=== PATIENT | male | born 1970 | race Caucasian/White ===

== ENCOUNTER → 2017-07-01 | Outpatient (CLI) | payer BC ==
--- NOTE | 2017-07-02 10:45 | ECHOF ---
Referral Reason:I51.7 Cardiomegaly MEASUREMENTS -------- HEIGHT: 175.3 cm WEIGHT: 93.0 kg BP: 139/86 RVIDd: 2.7 cm (< 3.3) IVSd: 1.0 cm (0.6 - 1.1) LVIDd: 4.3 cm (3.9 - 5.3) LVPWd: 1.0 cm (0.6 - 1.1) IVSs: 1.5 cm LVIDs: 2.7 cm LVPWs: 1.3 cm LA Diam: 2.8 cm (2.7 - 3.8) LAESV Index (A-L): 16.57 ml/m Ao Diam: 2.6 cm (2.0 - 3.7) AV Cusp: 2.0 cm (1.5 - 2.6) EPSS: 0.3 cm MV E Bereket: 0.74 m/s MV DecT: 309 ms MV A Bereket: 0.80 m/s MV E/A Ratio: 0.92 MV EF SLOPE: 92.32 mm/s (70 - 150) MV EXCURSION: 1.48 cm (> 18.000) FINDINGS -------- Sinus rhythm. This was a technically good study. The left ventricular size is normal. Left ventricular wall thickness is normal. Overall left vent ricular systolic function is normal with, an EF between 55 - 60 %. The right ventricle is normal in size. Normal LA size by volume 22+/-6 ml/m2. The right atrium is normal in size. The aortic valve is trileaflet and appears structurally normal. There is trace mitral regurgitation. Trace tricuspid regurgitation present. Trace/mild (physiologic) pulmonic regurgitation. The aortic root size is normal. Normal inferior vena cava with normal inspiratory collapse consistent with estimated right atrial pre ssure of 5 mmHg. There is no pericardial effusion. CONCLUSIONS -------- 1. Sinus rhythm. 2. This was a technically good study. 3. The left ventricular size is normal. 4. Left ventricular wall thickness is normal. 5. Overall left ventricular systolic function is normal with, an EF between 55 - 60 %. 6. The right ventricle is normal in size. 7. Normal LA size by volume 22+/-6 ml/m2. 8. The right atrium is normal in size. 9. The aortic valve is trileaflet and appears structurally normal. 10. There is trace mitral regurgitation. 11. Trace tricuspid regurgitation present. 12. Trace/mild (physiologic) pulmonic regurgitation. 13. The aortic root size is normal. 14. Normal inferior vena cava with normal inspiratory collapse consistent with estimated right atrial pressure of 5 mmHg. 15. There is no pericardial effusion. [employer] POLISHER: MIKE Alarcon
== END | disposition home or self-care (01) ==
LOC: RADECHMAIN 13:47
PROVIDERS: ATTEND Internal Medicine
DX: I51.7 Cardiomegaly (principal)
CPT/HCPCS: 93306

== ENCOUNTER → 2017-09-13 | Outpatient (CLI) | payer BC ==
--- NOTE | 2017-09-13 14:38 | EST ---
EXERCISE STRESS AGE: 47 SEX: M HT: 5'9" WT: 194 PROTOCOL: Jadon Stress Test STAGE: III DURATION OF EXERCISE: 9:00 HEART RATE REST: 96 BLOOD PRESSURE REST: 140/94 MAXIMUM HEART RATE ACHIEVED: 168 MAXIMUM BLOOD PRESSURE: 193/68 85% MPHR: 147 100% MPHR: 173 METS: 10.5 INDICATIONS: Chest pain. CLINICAL INFORMATION: Baseline rhythm is sinus mechanism. Rate is 96, normal axis and interval. Baseline blood pressure 140/94 mmHg. Patient exercised on Jadon protocol of 9 minutes reaching a peak heart rate of 168 beasts per minute which is equal to 97% of maximum predicted heart failure. Peak blood pressure 193/68 mmHg. Test was terminated due to fatigue. There is no chest pain. Electrocardiographic monitored revealed no evidence of diagnostic ischemic ST deviation. CONCLUSION: 1. Average exercise tolerance with normal electrocardiographic response to exercise. 2. No episode of chest discomfort. MMODL / IJN: [id number] /
== END | disposition home or self-care (01) ==
LOC: RADNMMAIN 10:34
PROVIDERS: ATTEND Internal Medicine
DX: R07.89 Other chest pain (principal)
CPT/HCPCS: 93017

== ENCOUNTER 2017-10-18 14:29 | Emergency (ER) | payer BC ==
[2017-10-18 15:54] LABS: Basophils % (A) 1 %; Eosinophils # (A) 0.1 k/uL (0-0.7); Eosinophils % (A) 1 %; HCT 42.1 % (39.0-53.0); HGB 14.4 gm/dL (13.0-17.5); Lymphocytes # (A) 0.6 k/uL (1.0-4.8); Lymphocytes % (A) 12 %; MCH 29.4 pg (25.0-35.0); MCHC 34.3 g/dL (31.0-37.0); MCV 85.7 fL (80.0-100.0); Mean Platelet Volume 6.4; Monocytes # (A) 0.2 k/uL (0-1.0); Monocytes % (A) 4 %; Neutrophils # (A) 4.5 k/uL (1.3-7.7); Neutrophils % (A) 82 %; Platelet Count 283 k/uL (150-450); RBC 4.91 m/uL (4.30-5.90); RDW 13.4 % (11.5-15.5); WBC 5.5 k/uL (3.8-10.6)
[2017-10-18 16:02] LABS: ALT 29 U/L (21-72); AST 18 U/L (17-59); Albumin 4.6 g/dL (3.5-5.0); Alkaline Phosphatase 68 U/L (38-126); Amylase 56 U/L (30-110); Anion Gap 13 mmol/L; Blood Urea Nitrogen 11 mg/dL (9-20); Calcium 9.7 mg/dL (8.4-10.2); Carbon Dioxide 25 mmol/L (22-30); Chloride 104 mmol/L (98-107); Glucose 95 mg/dL (74-99); Lipase 165 U/L (23-300); Magnesium 2.1 mg/dL (1.6-2.3); Potassium 4.1 mmol/L (3.5-5.1); Sodium 142 mmol/L (137-145); Total Protein 7.6 g/dL (6.3-8.2)
[2017-10-18 16:04] LABS: INR 1.1 (<1.2); Prothrombin Time 10.3 sec (9.0-12.0)
[2017-10-18 16:07] LABS: Creatine Kinase 81 U/L (55-170)
--- NOTE | 2017-10-18 16:12 | XR ---
EXAMINATION TYPE: XR chest 2V DATE OF EXAM: 10/18/2017 COMPARISON: Prior chest 03/04/2015 HISTORY: Chest pain TECHNIQUE: Frontal and lateral views of the chest are obtained. FINDINGS: There is no focal air space opacity, pleural effusion, or pneumothorax seen. The cardiac silhouette size is within normal limits. The osseous structures are intact. IMPRESSION: No acute cardiopulmonary process.
[2017-10-18 16:21] LABS: Creatine Kinase MB 0.3 ng/mL (0.0-2.4); Troponin I <0.012 ng/mL (0.000-0.034)
[2017-10-18] MEDS ORDERED: KETOROLAC 60 MG/2 ML VIAL IM STA (20:24)
[2017-10-18 20:31] VITALS: RESP 16
--- NOTE | 2017-10-18 20:31 | ED ---
General Adult HPI - General Chief complaint: Recheck/Abnormal Lab/Rx Stated complaint: BP 168/108 Time Seen by Provider: 10/18/17 15:25 Source: patient, RN notes reviewed Mode of arrival: ambulatory Limitations: no limitations - History of Present Illness Initial comments: This a 47-year-old male who presents to the emergency Department with multiple complaints. Patient was recently diagnosed by blood pressure and his physician gave him a blood pressure medication started taking today. Patient states he has been having some episodes of headaches and some bilateral neck pain that seems to be muscular in nature. Patient states also he is been having some blurred vision. Patient states he has had a recent workup for his heart and it was all negative. Patient states that included a stress test and an echo. Patient states currently he has no chest pain or difficulty breathing patient states he did have some chest pain a few days ago but it was the same pain he had when he was worked up for it before. Patient denies any smoking. Patient states she's recently had a job much more stressful than the previous chart. Patient states he also has been complaining of epigastric and right upper quadrant tenderness. Patient denies any calf pain or leg swelling. - Related Data Home Medications Medication Instructions Recorded Confirmed Simvastatin [Zocor] 20 mg PO DAILY 03/03/15 10/18/17 Aspirin [Adult Low Dose Aspirin EC] 81 mg PO DAILY 10/18/17 10/18/17 Cholecalciferol [Vitamin D3] 1,000 unit PO DAILY 10/18/17 10/18/17 Escitalopram [Lexapro] 10 mg PO DAILY 10/18/17 10/18/17 Famotidine [Pepcid] 20 mg PO DAILY 10/18/17 10/18/17 Fish Oil/Dha/Epa [Fish Oil 1,200 1 cap PO DAILY 10/18/17 10/18/17 mg Fish Oil] Lisinopril [Prinivil] 10 mg PO DAILY 10/18/17 10/18/17 Allergies Allergy/AdvReac Type Severity Reaction Status Date / Time No Known Allergies Allergy Verified 10/18/17 19:29 Review of Systems ROS Statement: Those systems with pertinent positive or pertinent negative responses have been documented in the HPI. ROS Other: All systems not noted in ROS Statement are negative. Past Medical History Past Medical History: Hyperlipidemia, Hypertension Additional Past Medical History / Comment(s): 03/04/[address] [facility] ER with chest pain. He was seen in ER yesterday for chest pain-he was tx with nitro x 3 and left AMA. He had reoccurrence of chest pain which radiatedd up to L neck and down L arm. He also had some pain with movement but states pain is more of a constant type pain. He states he fell yesterday and landed on his L shoulder. History of Any Multi-Drug Resistant Organisms: None Reported Past Surgical History: No Surgical Hx Reported Additional Past Surgical History / Comment(s): colonoscopy, wisdom teeth extraction. Past Anesthesia/Blood Transfusion Reactions: Postoperative Nausea & Vomiting ( PONV) Past Psychological History: No Psychological Hx Reported Smoking Status: Never smoker Past Alcohol Use History: Occasional Past Drug Use History: None Reported - Past Family History Father Family Medical History: Coronary Artery Disease (CAD) Additional Family Medical History / Comment(s): Father recently. He was 65 yrs old. Mother Family Medical History: No Reported History Additional Family Medical History / Comment(s): Mother is healthy and 65 yrs old. General Exam - General Exam Comments Initial Comments: GENERAL: Patient is well-developed and well-nourished. Patient is nontoxic and well- hydrated and is in mild distress. ENT: Neck is soft and supple. No significant lymphadenopathy is noted. Oropharynx is clear. Moist mucous membranes. Neck has full range of motion without eliciting any pain. Palpating the neck at the base of the skull bilaterally is tender. EYES: The sclera were anicteric and conjunctiva were pink and moist. Extraocular movements were intact and pupils were equal round and reactive to light. Eyelids were unremarkable. PULMONARY: Unlabored respirations. Good breath sounds bilaterally. No audible rales rhonchi or wheezing was noted. CARDIOVASCULAR: There is a regular rate and rhythm without any murmurs gallops or rubs. ABDOMEN: Minimal right upper quadrant tenderness SKIN: Skin is clear with no lesions or rashes and otherwise unremarkable. NEUROLOGIC: Patient is alert and oriented x3. Cranial nerves II through XII are grossly intact. Motor and sensory are also intact. Normal speech, volume and content. Symmetrical smile. MUSCULOSKELETAL: Normal extremities with adequate strength and full range of motion. No lower extremity swelling or edema. No calf tenderness. LYMPHATICS: No significant lymphadenopathy is noted PSYCHIATRIC: Normal psychiatric evaluation. Limitations: no limitations Course Vital Signs 10/18/17 10/18/17 10/18/17 15:23 20:29 20:55 Temperature 98.6 F 97.9 F Pulse Rate 85 79 68 Respiratory 18 16 16 Rate Blood Pressure 151/98 169/109 169/95 O2 Sat by Pulse 100 99 99 Oximetry 10/18/17 21:38 Temperature 97.8 F Pulse Rate 68 Respiratory 16 Rate Blood Pressure 135/86 O2 Sat by Pulse 99 Oximetry Medical Decision Making - Medical Decision Making EKG shows normal sinus rhythm at 81 bpm CA interval is 132 QRS is 80 QT interval 376 QTC is 436. Patient's EKG shows no ST segment elevation or depression or T wave abnormalities are noted. - Lab Data Result diagrams: 10/18/17 15:45 10/18/17 15:45 Lab Results 10/18/17 10/18/17 10/18/17 Range/Units 15:45 15:45 15:45 WBC 5.5 (3.8-10.6) k/uL RBC 4.91 (4.30-5.90) m/uL Hgb 14.4 (13.0-17.5) gm/dL Hct 42.1 (39.0-53.0) % MCV 85.7 (80.0-100.0) fL MCH 29.4 (25.0-35.0) pg MCHC 34.3 (31.0-37.0) g/dL RDW 13.4 (11.5-15.5) % Plt Count 283 (150-450) k/uL Neutrophils % 82 % Lymphocytes % 12 % Monocytes % 4 % Eosinophils % 1 % Basophils % 1 % Neutrophils # 4.5 (1.3-7.7) k/uL Lymphocytes # 0.6 L (1.0-4.8) k/uL Monocytes # 0.2 (0-1.0) k/uL Eosinophils # 0.1 (0-0.7) k/uL Basophils # 0.0 (0-0.2) k/uL PT (9.0-12.0) sec INR (<1.2) APTT (22.0-30.0) sec Sodium 142 (137-145) mmol/L Potassium 4.1 (3.5-5.1) mmol/L Chloride 104 (98-107) mmol/L Carbon Dioxide 25 (22-30) mmol/L Anion Gap 13 mmol/L BUN 11 (9-20) mg/dL Creatinine 0.82 (0.66-1.25) mg/dL Est GFR (CKD-EPI)AfAm >90 (>60 ml/min/1.73 sqM) Est GFR (CKD-EPI)NonAf >90 (>60 ml/min/1.73 sqM) Glucose 95 (74-99) mg/dL Calcium 9.7 (8.4-10.2) mg/dL Magnesium 2.1 (1.6-2.3) mg/dL Total Bilirubin 1.0 (0.2-1.3) mg/dL AST 18 (17-59) U/L ALT 29 (21-72) U/L Alkaline Phosphatase 68 (38-126) U/L Total Creatine Kinase 81 (55-170) U/L CK-MB (CK-2) 0.3 (0.0-2.4) ng/mL CK-MB (CK-2) Rel Index 0.4 Troponin I <0.012 (0.000-0.034) ng/mL Total Protein 7.6 (6.3-8.2) g/dL Albumin 4.6 (3.5-5.0) g/dL Amylase 56 (30-110) U/L Lipase 165 (23-300) U/L 10/18/17 Range/Units 15:45 WBC (3.8-10.6) k/uL RBC (4.30-5.90) m/uL Hgb (13.0-17.5) gm/dL Hct (39.0-53.0) % MCV (80.0-100.0) fL MCH (25.0-35.0) pg MCHC (31.0-37.0) g/dL RDW (11.5-15.5) % Plt Count (150-450) k/uL Neutrophils % % Lymphocytes % % Monocytes % % Eosinophils % % Basophils % % Neutrophils # (1.3-7.7) k/uL Lymphocytes # (1.0-4.8) k/uL Monocytes # (0-1.0) k/uL Eosinophils # (0-0.7) k/uL Basophils # (0-0.2) k/uL PT 10.3 (9.0-12.0) sec INR 1.1 (<1.2) APTT 22.0 (22.0-30.0) sec Sodium (137-145) mmol/L Potassium (3.5-5.1) mmol/L Chloride (98-107) mmol/L Carbon Dioxide (22-30) mmol/L Anion Gap mmol/L BUN (9-20) mg/dL Creatinine (0.66-1.25) mg/dL Est GFR (CKD-EPI)AfAm (>60 ml/min/1.73 sqM) Est GFR (CKD-EPI)NonAf (>60 ml/min/1.73 sqM) Glucose (74-99) mg/dL Calcium (8.4-10.2) mg/dL Magnesium (1.6-2.3) mg/dL Total Bilirubin (0.2-1.3) mg/dL AST (17-59) U/L ALT (21-72) U/L Alkaline Phosphatase (38-126) U/L Total Creatine Kinase (55-170) U/L CK-MB (CK-2) (0.0-2.4) ng/mL CK-MB (CK-2) Rel Index Troponin I (0.000-0.034) ng/mL Total Protein (6.3-8.2) g/dL Albumin (3.5-5.0) g/dL Amylase (30-110) U/L Lipase (23-300) U/L Disposition Clinical Impression: Hypertensive urgency, Epigastric abdominal pain, Cervical strain Disposition: HOME SELF-CARE Condition: Good Instructions: Hypertension (ED), Abdominal Pain (ED) Is patient prescribed a controlled substance at d/c from ED?: No Referrals: Ritesh Avendano MD [Primary Care Provider] - 1-2 days Time of Disposition: 21:54
[2017-10-18] MEDS ORDERED: cloNIDine HCL 0.2 MG TAB PO STA (20:32)
[2017-10-18 20:56] VITALS: PULSE 68
[2017-10-18 21:38] VITALS: BP 135/86
--- NOTE | 2017-10-18 21:40 | US ---
EXAMINATION TYPE: US gallbladder DATE OF EXAM: 10/18/2017 COMPARISON: NONE CLINICAL HISTORY: Pain. Exam limitations due to patient barrel chested. EXAM MEASUREMENTS: Liver Length: 13.9 cm Gallbladder Wall: 0.2 cm CBD: 0.45 cm Right Kidney: 9.7 x 4.6 x 4.1 cm Pancreas: Obscured by bowel gas Liver: appears wnl Gallbladder: wnl Evidence for sonographic Rod's sign: No CBD: wnl Right Kidney: wnl IMPRESSION: No gallstones or dilated ducts.
[2017-10-18 21:55] VITALS: TEMP 97.7
== END 2017-10-18 22:08 | disposition home or self-care (01) ==
LOC: EC 14:29
DX: S16.1XXA Strain of muscle, fascia and tendon at neck level, initial encounter (principal); I16.0 Hypertensive urgency; I10 Essential (primary) hypertension; R10.13 Epigastric pain; R10.11 Right upper quadrant pain; E78.5 Hyperlipidemia, unspecified; Z79.82 Long term (current) use of aspirin; Z79.899 Other long term (current) drug therapy; X58.XXXA Exposure to other specified factors, initial encounter
CPT/HCPCS: 99284; 96372; 36415; 80053; 82150; 82550; 82553; 83690; 83735; 84484; 85025; 85610; 85730; 71046; 76705; J1885

== ENCOUNTER 2017-10-19 00:27 | Emergency (ER) | payer BC ==
[2017-10-19 00:43] VITALS: RESP 18
--- NOTE | 2017-10-19 01:11 | ED ---
General Adult HPI - General Chief complaint: Headache Stated complaint: blurred vison, numbness, head pain Time Seen by Provider: 10/19/17 00:44 Source: patient, RN notes reviewed, old records reviewed Mode of arrival: ambulatory Limitations: no limitations - History of Present Illness Initial comments: This is a 47-year-old male the ER for evaluation. This patient presents today for evaluation regarding headache. Headache, patient also admits to anxiety. Numbness taking paresthesias. Patient is recent diagnosis of high blood pressure and general anxiety versus mild depression. Today started on both blood pressure medication and Lexapro. Patient's are Lexapro lisinopril today. Patient was in ER earlier today was similar complaint. The headache is worsening tonight and is currently for evaluation of headache and paresthesias. Patient denies nausea vomiting, denies trauma. Denies any drugs alcohol - Related Data Home Medications Medication Instructions Recorded Confirmed Simvastatin [Zocor] 20 mg PO DAILY 03/03/15 10/18/17 Aspirin [Adult Low Dose Aspirin EC] 81 mg PO DAILY 10/18/17 10/18/17 Cholecalciferol [Vitamin D3] 1,000 unit PO DAILY 10/18/17 10/18/17 Escitalopram [Lexapro] 10 mg PO DAILY 10/18/17 10/18/17 Famotidine [Pepcid] 20 mg PO DAILY 10/18/17 10/18/17 Fish Oil/Dha/Epa [Fish Oil 1,200 1 cap PO DAILY 10/18/17 10/18/17 mg Fish Oil] Lisinopril [Prinivil] 10 mg PO DAILY 10/18/17 10/18/17 Allergies Allergy/AdvReac Type Severity Reaction Status Date / Time No Known Allergies Allergy Verified 10/19/17 00:43 Review of Systems ROS Statement: Those systems with pertinent positive or pertinent negative responses have been documented in the HPI. ROS Other: All systems not noted in ROS Statement are negative. Past Medical History Past Medical History: Hyperlipidemia, Hypertension Additional Past Medical History / Comment(s): 03/04/15 Pt presented to [facility] ER with chest pain. He was seen in ER yesterday for chest pain-he was tx with nitro x 3 and left AMA. He had reoccurrence of chest pain which radiatedd up to L neck and down L arm. He also had some pain with movement but states pain is more of a constant type pain. He states he fell yesterday and landed on his L shoulder. History of Any Multi-Drug Resistant Organisms: None Reported Past Surgical History: No Surgical Hx Reported Additional Past Surgical History / Comment(s): colonoscopy, wisdom teeth extraction. Past Anesthesia/Blood Transfusion Reactions: Postoperative Nausea & Vomiting ( PONV) Past Psychological History: No Psychological Hx Reported Smoking Status: Never smoker Past Alcohol Use History: Occasional Past Drug Use History: None Reported - Past Family History Father Family Medical History: Coronary Artery Disease (CAD) Additional Family Medical History / Comment(s): Father recently. He was 65 yrs old. Mother Family Medical History: No Reported History Additional Family Medical History / Comment(s): Mother is healthy and 65 yrs old. General Exam Limitations: no limitations General appearance: alert, in no apparent distress Head exam: Present: atraumatic, normocephalic, normal inspection Eye exam: Present: normal appearance, PERRL, EOMI. Absent: scleral icterus, conjunctival injection, periorbital swelling ENT exam: Present: normal exam, mucous membranes moist Neck exam: Present: normal inspection. Absent: tenderness, meningismus, lymphadenopathy Respiratory exam: Present: normal lung sounds bilaterally. Absent: respiratory distress, wheezes, rales, rhonchi, stridor Cardiovascular Exam: Present: regular rate, normal rhythm, normal heart sounds. Absent: systolic murmur, diastolic murmur, rubs, gallop, clicks GI/Abdominal exam: Present: soft, normal bowel sounds. Absent: distended, tenderness, guarding, rebound, rigid Extremities exam: Present: normal inspection, full ROM, normal capillary refill. Absent: tenderness, pedal edema, joint swelling, calf tenderness Back exam: Present: normal inspection Neurological exam: Present: alert, oriented X3, CN II-XII intact Psychiatric exam: Present: normal affect, normal mood Skin exam: Present: warm, dry, intact, normal color. Absent: rash Course Vital Signs 10/19/17 00:40 Temperature 98.3 F Pulse Rate 83 Respiratory 18 Rate Blood Pressure 123/83 O2 Sat by Pulse 99 Oximetry - Reevaluation(s) Reevaluation #1: 10/19/17 01:59 Prior ER visits thoroughly reviewed EKG Findings - EKG Comments: EKG Findings:: EKG shows sinus rhythm rate of 61, UT 122, QRS 84, QTC 410 Medical Decision Making - Medical Decision Making 47 male the ER for evaluation. Patient resents today regarding headache, CTA of head is negative. Patient encouraged blood pressure medication continued trial depression medication and anxiety medication and discharged home - Lab Data Result diagrams: 10/19/17 01:37 Lab Results 10/19/17 10/19/17 Range/Units 01:37 01:37 WBC 6.0 (3.8-10.6) k/uL RBC 4.61 (4.30-5.90) m/uL Hgb 13.2 (13.0-17.5) gm/dL Hct 39.1 (39.0-53.0) % MCV 84.7 (80.0-100.0) fL MCH 28.7 (25.0-35.0) pg MCHC 33.9 (31.0-37.0) g/dL RDW 13.2 (11.5-15.5) % Plt Count 238 (150-450) k/uL Neutrophils % 74 % Lymphocytes % 15 % Monocytes % 8 % Eosinophils % 1 % Basophils % 0 % Neutrophils # 4.4 (1.3-7.7) k/uL Lymphocytes # 0.9 L (1.0-4.8) k/uL Monocytes # 0.5 (0-1.0) k/uL Eosinophils # 0.1 (0-0.7) k/uL Basophils # 0.0 (0-0.2) k/uL PT 10.5 (9.0-12.0) sec INR 1.1 (<1.2) APTT 22.2 (22.0-30.0) sec - Radiology Data Radiology results: report reviewed, image reviewed Disposition Clinical Impression: Headache, Hypertension, Medication reaction Disposition: HOME SELF-CARE Condition: Good Instructions: Acute Headache (ED), Hypertension (ED), Escitalopram (By mouth) Is patient prescribed a controlled substance at d/c from ED?: No Referrals: Ritesh Avendano MD [Primary Care Provider] - 1-2 days
[2017-10-19] MEDS ORDERED: SODIUM CHLORIDE 0.9% 1,000 ML IV STA (01:25)
[2017-10-19 01:45] LABS: Basophils % (A) 0 %; Eosinophils # (A) 0.1 k/uL (0-0.7); Eosinophils % (A) 1 %; HCT 39.1 % (39.0-53.0); HGB 13.2 gm/dL (13.0-17.5); Lymphocytes # (A) 0.9 k/uL (1.0-4.8); Lymphocytes % (A) 15 %; MCH 28.7 pg (25.0-35.0); MCHC 33.9 g/dL (31.0-37.0); MCV 84.7 fL (80.0-100.0); Mean Platelet Volume 7.7; Monocytes # (A) 0.5 k/uL (0-1.0); Monocytes % (A) 8 %; Neutrophils # (A) 4.4 k/uL (1.3-7.7); Neutrophils % (A) 74 %; Platelet Count 238 k/uL (150-450); RBC 4.61 m/uL (4.30-5.90); RDW 13.2 % (11.5-15.5)
[2017-10-19 01:55] LABS: INR 1.1 (<1.2); Partial Thromboplastin Time 22.2 sec (22.0-30.0); Prothrombin Time 10.5 sec (9.0-12.0)
[2017-10-19 02:03] LABS: ALT 32 U/L (21-72); AST 17 U/L (17-59); Alkaline Phosphatase 56 U/L (38-126); Anion Gap 11 mmol/L; Blood Urea Nitrogen 13 mg/dL (9-20); Calcium 9.5 mg/dL (8.4-10.2); Carbon Dioxide 24 mmol/L (22-30); Chloride 103 mmol/L (98-107); Glucose 98 mg/dL (74-99); Magnesium 2.1 mg/dL (1.6-2.3); Phosphorus 3.6 mg/dL (2.5-4.5); Potassium 3.7 mmol/L (3.5-5.1); Sodium 138 mmol/L (137-145); Total Protein 6.6 g/dL (6.3-8.2)
[2017-10-19 02:10] LABS: Creatine Kinase 66 U/L (55-170)
--- NOTE | 2017-10-19 02:13 | CT ---
EXAMINATION TYPE: CT angio head neck DATE OF EXAM: 10/19/2017 HISTORY: headache COMPARISON: None CT DLP: head 1015.30 body 386.90 mGycm. Automated Exposure Control for Dose Reduction was Utilized. TECHNIQUE: CTA scan of the neck is performed with IV Contrast, patient injected with 65 mL of Isovue 370, axial images are obtained, coronal and sagittal reformatted images are reviewed. Three-D recons tructed images are created on an independent workstation and reviewed. FINDINGS: There is normal branching pattern of the great vessels on the aortic arch. Great vessels appear paty l. There is arterial flow in both vertebral arteries which are fairly symmetric. There is arterial flow in the common internal and external carotid arteries bilaterally. There is wid e patency of the carotid artery bifurcations. There is no evidence of carotid or vertebral artery ane urysm or dissection. There is arterial flow in the vertebrobasilar artery system. There is arterial flow in the anterior m iddle and posterior cerebral arteries. There is normal appearance of the venous sinuses. There is no sign of aneurysm or neovascularity. There is no mass effect. There is no evidence of stenosis. There is no significant flow seen in the posterior communicating arteries. IMPRESSION: Normal CT angiogram of the neck. Normal CT angiogram of the brain.
--- NOTE | 2017-10-19 02:14 | CT ---
EXAMINATION TYPE: CT brain wo con DATE OF EXAM: 10/19/2017 COMPARISON: None HISTORY: headache CT DLP: head 1015.30 body 386.90 mGycm. Automated Exposure Control for Dose Reduction was Utilized. TECHNIQUE: CT scan of the head is performed without contrast. FINDINGS: Ventricles and sulci appear normal. There is no mass effect nor midline shift. There is n o sign of intracranial hemorrhage. The calvarium is intact. There is no evidence of cerebral edema. IMPRESSION: Normal CT scan of the brain.
[2017-10-19 02:23] LABS: Creatine Kinase MB 0.3 ng/mL (0.0-2.4); Troponin I <0.012 ng/mL (0.000-0.034)
[2017-10-19 02:49] VITALS: BP 149/79; PULSE 79; TEMP 97.4
== END 2017-10-19 02:48 | disposition home or self-care (01) ==
LOC: EC 00:27
DX: R51 Headache (principal); R20.2 Paresthesia of skin; T43.225A Adverse effect of selective serotonin reuptake inhibitors, initial encounter; T46.4X5A Adverse effect of angiotensin-converting-enzyme inhibitors, initial encounter; I10 Essential (primary) hypertension; E78.5 Hyperlipidemia, unspecified; Z79.82 Long term (current) use of aspirin; Z79.899 Other long term (current) drug therapy
CPT/HCPCS: 36415; 93005; 80053; 82550; 82553; 83735; 84100; 84484; 85025; 85610; 85730; 70496; 70450; 70498; 99284; 96360; Q9967

== ENCOUNTER → 2018-04-26 | Outpatient (CLI) | payer BC ==
--- NOTE | 2018-04-26 09:15 | MR ---
EXAMINATION TYPE: MR brain wo con DATE OF EXAM: 04/26/2018 7:34 AM COMPARISON: NONE HISTORY: Paresthesia of skin, left arm weakness Multiplanar and multispin-echo imaging of the brain was performed . The ventricles, basal cisterns and sulci overlying the cerebral convexities are within normal limits. There is no evidence for midline shift or mass effect. Acute intracranial hemorrhage or extra-axial collection is not evident. 10-12 foci of increased signal noted within the deep and subcortical white matter of the left cerebra l hemisphere the largest lesion seen high left parietal region measuring 4.8 mm. Right cerebral hemis phere demonstrates similar-appearing lesions totaling in #6-8. Largest lesion is noted within the rig ht centrum semioval bilaterally measuring 3.7 mm. Differential diagnostic possibilities include chron ic migraine headaches, vasculitis, sequela of Lyme's disease and a demyelinating process. No acute edema is identified. The paranasal sinuses and mastoid air cells are well-aerated. IMPRESSION: 1. Nonspecific white matter changes as noted above. Correlate for demyelinating disease.
== END | disposition home or self-care (01) ==
LOC: RADMRIMAIN 06:47
PROVIDERS: ATTEND Internal Medicine
DX: R90.89 Other abnormal findings on diagnostic imaging of central nervous system (principal); R20.2 Paresthesia of skin
CPT/HCPCS: 70551

== ENCOUNTER → 2018-06-01 | Outpatient (CLI) | payer BC ==
[2018-06-01 14:31] LABS: INR 0.9 (<1.2); Prothrombin Time 10.1 sec (9.0-12.0)
[2018-06-01 14:41] LABS: Creatine Kinase 99 U/L (55-170)
[2018-06-01 15:04] LABS: C Reactive Protein <5.0 mg/L (<10.0)
--- NOTE | 2018-06-01 15:38 | MR ---
EXAMINATION TYPE: MR brain w con DATE OF EXAM: 06/01/2018 COMPARISON: 04/26/2018 MR brain HISTORY: Abnormal MRI, Demyelination TECHNIQUE: Postcontrast MR images of the brain and brainstem were performed with IV contrast, utilizing 9 mL int ravenous Gadavist . FINDINGS: Postcontrast only images were obtained to further evaluate the white matter changes seen on the MRI of 04/16/2018. 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 Post contrast images demonstrate no abnormal intr acranial enhancement. The previously scattered nonspecific white matter changes are demonstrated as T 1 hypointensity without abnormal enhancement. Orbits are unremarkable. Paranasal sinuses and mastoid air cells are well aerated. Major intracranial vasculature are patent. No suspicious leptomeningeal e nhancement. IMPRESSION: Previously seen nonspecific white matter changes discussed on the MR dated 04/16/2018 do no t demonstrate. Again these may represent sequela of microangiopathy, migraines, demyelinating disease , or less likely infectious etiologies. No abnormal intracranial enhancement is seen.
[2018-06-01 18:54] LABS: Protein, Total 7.4 g/dL (6.2-8.2); Rheumatoid Factor <4 IU/mL (0-15)
[2018-06-01 19:42] LABS: Cardiolipin Ab IgG Interp NEGATIVE (NEGATIVE); Cardiolipin Ab IgM Interp NEGATIVE (NEGATIVE); Cardiolipin IgA Antibody 0.9 U/mL; Cardiolipin IgM Antibody 0.7 U/mL; DNA Double-Stranded NEGATIVE (NEGATIVE)
[2018-06-02 11:44] LABS: Albumin 4.48 g/dL (3.80-4.90); Gamma Globulin 1.19 g/dL (0.70-1.50)
[2018-06-03 09:28] LABS: Lyme IgG/IgM 0.1 Index
== END | disposition home or self-care (01) ==
LOC: RADMRIMAIN 13:00
PROVIDERS: ATTEND Psychiatry & Neurology Neurology
DX: R93.0 Abnormal findings on diagnostic imaging of skull and head, not elsewhere classified (principal); R20.0 Anesthesia of skin; R20.2 Paresthesia of skin; I63.9 Cerebral infarction, unspecified
CPT/HCPCS: 82747; 85652; 82607; 82565; 82550; 85610; 85730; 86140; 86431; 86618; 84165; 86780; 86038; 86225; 86147; 70552; 36415; A9585

== ENCOUNTER 2018-07-07 09:35 | Emergency (ER) | payer BC ==
--- NOTE | 2018-07-07 09:53 | ED ---
General Adult HPI - General Chief complaint: Chest Pain Stated complaint: chest pain Time Seen by Provider: 07/07/18 09:44 Source: patient Mode of arrival: ambulatory Limitations: no limitations - History of Present Illness Initial comments: Dictation was produced using [employer] dictation software. please excuse any grammatical, word or spelling errors. Chief Complaint: 47-year-old male presents with left-sided chest pain that radiates to the neck. History of Present Illness: Is a 47-year-old male. He reports that he's been having chest pain over the past 3 days. 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 Today after patient began having left-sided chest pain. He describes the pain as dull however is worse with movement. Patient does have family history of cardiac disease. States that when he lies flat it improved. Patient's history of hypertension and diabetes. Denies any cough, fever, chills. The ROS documented in this emergency department record has been reviewed and confirmed by me. Those systems with pertinent positive or negative responses have been documented in the HPI. All other systems are other negative and/or noncontributory. PHYSICAL EXAM: General Impression: Alert and oriented x3, not in acute distress HEENT: Normocephalic atraumatic, extra-ocular movements intact, pupils equal and reactive to light bilaterally, mucous membranes moist. Cardiovascular: Heart regular rate and rhythm, S1&S2 audible, no murmurs, rubs or gallops Chest: Lungs clear to auscultation bilaterally, no rhonchi, no wheeze, no rales, tenderness to palpation over the left anterior pectoralis muscle. It reproduced with left upper extremity pushing motion Abdomen: Bowel sounds present, abdomen soft, non-tender, non-distended, no organomegaly Musculoskeletal: Pulses present and equal in all extremities, no peripheral edema Motor: no focal deficits noted Neurological: CN II-XII grossly intact, no focal motor or sensory deficits noted Skin: Intact with no visualized rashes Psych: Normal affect and mood ED course: 47-year-old male with chief complaint of chest pain. Patient's clinical presentation is grossly atypical however he does describe it as dull with radiation to the neck. Patient has some risk factors. All signs upon arrival within acceptable limits. Physical exam suggest atypical chest pain likely secondary to strain. EKG is benign without any findings of infarction or ischemia.Laboratory evaluation was obtained showing no acute processes. Cardiac enzymes are negative. Given patient's history and physical examination are ov erwhelming for atypical chest pain likely secondary to chest strain there is very low clinical suspicion of cardiac disease or acute coronary syndrome. Patient however is advised that negative testing does not completely rule out acute coronary syndrome. He is told to follow-up with his primary care physician. Patient given some IV Toradol. Patient clear for discharge. EKG interpretation: Ventricular rate 84, normal sinus rhythm, GA interval 136, QRS 76, QTC 425. No GA prolongation, no QTC prolongation, no ST or T-wave changes noted. . Overall, this EKG is unremarkable - Related Data Home Medications Medication Instructions Recorded Confirmed Simvastatin [Zocor] 20 mg PO DAILY 03/03/15 07/07/18 Lisinopril [Prinivil] 10 mg PO DAILY 10/18/17 07/07/18 Multivitamins, Thera [Multivitamin 1 tab PO DAILY 07/07/18 07/07/18 (formulary)] Mv-Min/Vit C/Glut/Lysine/Hc124 1 tab PO DAILY PRN 07/07/18 07/07/18 [Airborne Tablet Chewable] Ranitidine HCl 150 mg PO BID PRN 07/07/18 07/07/18 Allergies Allergy/AdvReac Type Severity Reaction Status Date / Time No Known Allergies Allergy Verified 07/07/18 10:11 Review of Systems ROS Statement: Those systems with pertinent positive or pertinent negative responses have been documented in the HPI. ROS Other: All systems not noted in ROS Statement are negative. Past Medical History Past Medical History: Hyperlipidemia, Hypertension Additional Past Medical History / Comment(s): 03/04/15 Pt presented to [facility] ER with chest pain. He was seen in ER yesterday for chest pain-he was tx with nitro x 3 and left AMA. He had reoccurrence of chest pain which radiatedd up to L neck and down L arm. He also had some pain with movement but states pain is more of a constant type pain. He states he fell yesterday and landed on his L shoulder. History of Any Multi-Drug Resistant Organisms: None Reported Past Surgical History: No Surgical Hx Reported Additional Past Surgical History / Comment(s): colonoscopy, wisdom teeth extraction. Past Anesthesia/Blood Transfusion Reactions: Postoperative Nausea & Vomiting (PONV) Past Psychological History: No Psychological Hx Reported Smoking Status: Never smoker Past Alcohol Use History: Occasional Past Drug Use History: None Reported - Past Family History Father Family Medical History: Coronary Artery Disease (CAD) Additional Family Medical History / Comment(s): Father recently. He was 65 yrs old. Mother Family Medical History: No Reported History Additional Family Medical History / Comment(s): Mother is healthy and 65 yrs old. 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 Rate Blood Pressure 153/95 O2 Sat by Pulse 100 Oximetry Medical Decision Making - Lab Data Result diagrams: 07/07/18 09:55 07/07/18 09:55 Lab Results 07/07/18 07/07/18 07/07/18 Range/Units 09:55 09:55 09:55 WBC 5.7 (3.8-10.6) k/uL RBC 5.07 (4.30-5.90) m/uL Hgb 14.4 (13.0-17.5) gm/dL Hct 44.2 (39.0-53.0) % MCV 87.3 (80.0-100.0) fL MCH 28.3 (25.0-35.0) pg MCHC 32.5 (31.0-37.0) g/dL RDW 13.7 (11.5-15.5) % Plt Count 321 (150-450) k/uL Neutrophils % 64 % Lymphocytes % 24 % Monocytes % 6 % Eosinophils % 2 % Basophils % 1 % Neutrophils # 3.6 (1.3-7.7) k/uL Lymphocytes # 1.4 (1.0-4.8) k/uL Monocytes # 0.3 (0-1.0) k/uL Eosinophils # 0.1 (0-0.7) k/uL Basophils # 0.0 (0-0.2) k/uL PT 10.2 (9.0-12.0) sec INR 0.9 (<1.2) APTT 22.1 (22.0-30.0) sec Sodium 138 (137-145) mmol/L Potassium 4.8 (3.5-5.1) mmol/L Chloride 102 (98-107) mmol/L Carbon Dioxide 27 (22-30) mmol/L Anion Gap 9 mmol/L BUN 15 (9-20) mg/dL Creatinine 0.87 (0.66-1.25) mg/dL Est GFR (CKD-EPI)AfAm >90 (>60 ml/min/1.73 sqM) Est GFR (CKD-EPI)NonAf >90 (>60 ml/min/1.73 sqM) Glucose 91 (74-99) mg/dL Calcium 9.9 (8.4-10.2) mg/dL Magnesium 2.0 (1.6-2.3) mg/dL Total Bilirubin 1.2 (0.2-1.3) mg/dL AST 23 (17-59) U/L ALT 33 (21-72) U/L Alkaline Phosphatase 66 (38-126) U/L Troponin I (0.000-0.034) ng/mL Total Protein 8.1 (6.3-8.2) g/dL Albumin 4.7 (3.5-5.0) g/dL 07/07/18 Range/Units 09:55 WBC (3.8-10.6) k/uL RBC (4.30-5.90) m/uL Hgb (13.0-17.5) gm/dL Hct (39.0-53.0) % MCV (80.0-100.0) fL MCH (25.0-35.0) pg MCHC (31.0-37.0) g/dL RDW (11.5-15.5) % Plt Count (150-450) k/uL Neutrophils % % Lymphocytes % % Monocytes % % Eosinophils % % Basophils % % Neutrophils # (1.3-7.7) k/uL Lymphocytes # (1.0-4.8) k/uL Monocytes # (0-1.0) k/uL Eosinophils # (0-0.7) k/uL Basophils # (0-0.2) k/uL PT (9.0-12.0) sec INR (<1.2) APTT (22.0-30.0) sec Sodium (137-145) mmol/L Potassium (3.5-5.1) mmol/L Chloride (98-107) mmol/L Carbon Dioxide (22-30) mmol/L Anion Gap mmol/L BUN (9-20) mg/dL Creatinine (0.66-1.25) mg/dL Est GFR (CKD-EPI)AfAm (>60 ml/min/1.73 sqM) Est GFR (CKD-EPI)NonAf (>60 ml/min/1.73 sqM) Glucose (74-99) mg/dL Calcium (8.4-10.2) mg/dL Magnesium (1.6-2.3) mg/dL Total Bilirubin (0.2-1.3) mg/dL AST (17-59) U/L ALT (21-72) U/L Alkaline Phosphatase (38-126) U/L Troponin I <0.012 (0.000-0.034) ng/mL Total Protein (6.3-8.2) g/dL Albumin (3.5-5.0) g/dL Disposition Clinical Impression: Chest pain Disposition: HOME SELF-CARE Condition: Good Instructions (If sedation given, give patient instructions): Costochondritis ( ED) Is patient prescribed a controlled substance at d/c from ED?: No Referrals: Ritesh Avendano MD [Primary Care Provider] - 1-2 days Time of Disposition: 10:56
[2018-07-07 10:15] LABS: Basophils % (A) 1 %; Eosinophils # (A) 0.1 k/uL (0-0.7); Eosinophils % (A) 2 %; HCT 44.2 % (39.0-53.0); HGB 14.4 gm/dL (13.0-17.5); Lymphocytes # (A) 1.4 k/uL (1.0-4.8); Lymphocytes % (A) 24 %; MCH 28.3 pg (25.0-35.0); MCHC 32.5 g/dL (31.0-37.0); MCV 87.3 fL (80.0-100.0); Mean Platelet Volume 7.1; Monocytes # (A) 0.3 k/uL (0-1.0); Monocytes % (A) 6 %; Neutrophils # (A) 3.6 k/uL (1.3-7.7); Neutrophils % (A) 64 %; Platelet Count 321 k/uL (150-450); RBC 5.07 m/uL (4.30-5.90); RDW 13.7 % (11.5-15.5); WBC 5.7 k/uL (3.8-10.6)
[2018-07-07 10:17] LABS: INR 0.9 (<1.2); Partial Thromboplastin Time 22.1 sec (22.0-30.0); Prothrombin Time 10.2 sec (9.0-12.0)
[2018-07-07 10:32] LABS: ALT 33 U/L (21-72); AST 23 U/L (17-59); Albumin 4.7 g/dL (3.5-5.0); Alkaline Phosphatase 66 U/L (38-126); Anion Gap 9 mmol/L; Blood Urea Nitrogen 15 mg/dL (9-20); Calcium 9.9 mg/dL (8.4-10.2); Carbon Dioxide 27 mmol/L (22-30); Chloride 102 mmol/L (98-107); Glucose 91 mg/dL (74-99); Potassium 4.8 mmol/L (3.5-5.1); Sodium 138 mmol/L (137-145); Total Bilirubin 1.2 mg/dL (0.2-1.3); Total Protein 8.1 g/dL (6.3-8.2)
--- NOTE | 2018-07-07 10:39 | XR ---
EXAMINATION TYPE: XR chest 2V DATE OF EXAM: 07/07/2018 COMPARISON: 10/18/2017 HISTORY: Chest pain TECHNIQUE: Frontal and lateral views of the chest are obtained. FINDINGS: There is no focal air space opacity. No evidence for pneumothorax. No pleural effusion. The cardiac silhouette size is within normal limits. The osseous structures are grossly intact. IMPRESSION: 1. No acute cardiopulmonary process.
[2018-07-07] MEDS ORDERED: KETOROLAC 30 MG/ML 1 ML VIAL IVP STA (10:40)
[2018-07-07 11:17] VITALS: BP 132/84; PULSE 79; RESP 18; TEMP 98.2
== END 2018-07-07 11:18 | disposition home or self-care (01) ==
LOC: EC 09:35
DX: R07.89 Other chest pain (principal); E78.5 Hyperlipidemia, unspecified; I10 Essential (primary) hypertension; E11.9 Type 2 diabetes mellitus without complications; Z82.49 Family history of ischemic heart disease and other diseases of the circulatory system; Z98.890 Other specified postprocedural states; Z79.899 Other long term (current) drug therapy
CPT/HCPCS: 36415; 93005; 80053; 83735; 84484; 85025; 85610; 85730; 71046; 99285; 96374; J1885

== ENCOUNTER 2018-09-01 09:29 | Emergency (ER) | payer BC ==
[2018-09-01] MEDS ORDERED: ASPIRIN 81 MG PO STA (10:04)
--- NOTE | 2018-09-01 10:06 | ED ---
General Adult HPI - General Chief complaint: Chest Pain Stated complaint: chest pain Time Seen by Provider: 09/01/18 09:37 Source: patient Mode of arrival: wheelchair Limitations: no limitations - History of Present Illness Initial comments: Dictation was produced using [employer] dictation software. please excuse any grammatical, word or spelling errors. Chief Complaint: 48-year-old male past medical history dyslipidemia and hypertension presents with sharp left-sided chest pain. History of Present Illness: Patient is a 48-year-old male. He states that upon waking up this morning he had sharp left-sided chest pain. States worse with palpation and deep inspiration. States that he had sensation of that arm going down his left upper extremity however that has since resolved. Patient has had a cardiac stress test that was negative last summer. Patient denies any symptoms at this time. Takes baby aspirin. Patient otherwise feels well at this time. He insists that he be worked up for serious cardiopulmonary disease. Denies any coughing. States that he's been mowing the lawn however denies any trauma or acute inciting event. The ROS documented in this emergency department record has been reviewed and co nfirmed by me. Those systems with pertinent positive or negative responses have been documented in the HPI. All other systems are other negative and/or noncontributory. PHYSICAL EXAM: General Impression: Alert and oriented x3, not in acute distress HEENT: Normocephalic atraumatic, extra-ocular movements intact, pupils equal and reactive to light bilaterally, mucous membranes moist. Cardiovascular: Heart regular rate and rhythm, S1&S2 audible, no murmurs, rubs or gallops Chest: Lungs clear to auscultation bilaterally, no rhonchi, no wheeze, no rales, reproducible pain in the chest with palpation to the left or sternal interspace proximally 6 interspace Abdomen: Bowel sounds present, abdomen soft, non-tender, non-distended, no organomegaly Musculoskeletal: Pulses present and equal in all extremities, no peripheral edema Motor: no focal deficits noted Neurological: CN II-XII grossly intact, no focal motor or sensory deficits noted Skin: Intact with no visualized rashes Psych: Normal affect and mood ED course: 48 yo Male presents with clinical presentation consistent with atypical chest pain. Patient insisted he be worked up for acute coronary syndrome. Signs upon arrival are within acceptable limits. EKGs benign. Cardiac workups negative. CBC, metabolic panel, d-dimer are all unremarkable. Chest x-ray is nonacute. Patient given Lidoderm patch. He is told that symptoms are likely secondary to musculoskeletal strain. Patient told to follow up with her care physician outpatient for further workup. Return parameters discussed. Patient given aspirin. Patient clear for discharge. EKG interpretation: Ventricular rate 80, normal sinus rhythm, MD interval 134, care is 82, QTC 426. No MD prolongation, no QTC prolongation, no ST or T-wave changes noted. Overall, this EKG is unremarkable - Related Data Home Medications Medication Instructions Recorded Confirmed Simvastatin [Zocor] 20 mg PO DAILY 03/03/15 09/01/18 Lisinopril [Prinivil] 10 mg PO DAILY 10/18/17 09/01/18 Multivitamins, Thera [Multivitamin 1 tab PO DAILY 07/07/18 09/01/18 (formulary)] Ranitidine HCl 150 mg PO BID 07/07/18 09/01/18 Aspirin EC [Ecotrin Low Dose] 81 mg PO DAILY 09/01/18 09/01/18 Cholecalciferol [Vitamin D3 (25 1,000 unit PO DAILY 09/01/18 09/01/18 Mcg = 1000 Iu)] Allergies Allergy/AdvReac Type Severity Reaction Status Date / Time No Known Allergies Allergy Verified 09/01/18 10:01 Review of Systems ROS Statement: Those systems with pertinent positive or pertinent negative responses have been documented in the HPI. ROS Other: All systems not noted in ROS Statement are negative. Past Medical History Past Medical History: Hyperlipidemia, Hypertension Additional Past Medical History / Comment(s): 03/04/15 Pt presented to [facility] ER with chest pain. He was seen in ER yesterday for chest pain-he was tx with nitro x 3 and left AMA. He had reoccurrence of chest pain which radiatedd up to L neck and down L arm. He also had some pain with movement but states pain is more of a constant type pain. He states he fell yesterday and landed on his L shoulder. History of Any Multi-Drug Resistant Organisms: None Reported Past Surgical History: No Surgical Hx Reported Additional Past Surgical History / Comment(s): colonoscopy, wisdom teeth extraction. Past Anesthesia/Blood Transfusion Reactions: Postoperative Nausea & Vomiting (PONV) Past Psychological History: No Psychological Hx Reported Smoking Status: Never smoker Past Alcohol Use History: Occasional Past Drug Use History: None Reported - Past Family History Father Family Medical History: Coronary Artery Disease (CAD) Additional Family Medical History / Comment(s): Father recently. He was 65 yrs old. Mother Family Medical History: No Reported History Additional Family Medical History / Comment(s): Mother is healthy and 65 yrs old. General Exam Limitations: no limitations Course Vital Signs 09/01/18 09:32 Temperature 98.3 F Pulse Rate 82 Respiratory 20 Rate Blood Pressure 138/94 O2 Sat by Pulse 100 Oximetry Medical Decision Making - Lab Data Result diagrams: 09/01/18 09:45 09/01/18 09:45 Lab Results 09/01/18 09/01/18 09/01/18 Range/Units 09:45 09:45 09:45 WBC 4.6 (3.8-10.6) k/uL RBC 4.81 (4.30-5.90) m/uL Hgb 13.7 (13.0-17.5) gm/dL Hct 41.6 (39.0-53.0) % MCV 86.6 (80.0-100.0) fL MCH 28.5 (25.0-35.0) pg MCHC 32.9 (31.0-37.0) g/dL RDW 13.4 (11.5-15.5) % Plt Count 286 (150-450) k/uL Neutrophils % 65 % Lymphocytes % 23 % Monocytes % 7 % Eosinophils % 3 % Basophils % 1 % Neutrophils # 3.0 (1.3-7.7) k/uL Lymphocytes # 1.1 (1.0-4.8) k/uL Monocytes # 0.3 (0-1.0) k/uL Eosinophils # 0.1 (0-0.7) k/uL Basophils # 0.0 (0-0.2) k/uL PT 10.1 (9.0-12.0) sec INR 0.9 (<1.2) APTT 20.6 L (22.0-30.0) sec D-Dimer 0.24 (<0.60) mg/L FEU Sodium 140 (137-145) mmol/L Potassium 4.8 (3.5-5.1) mmol/L Chloride 106 (98-107) mmol/L Carbon Dioxide 25 (22-30) mmol/L Anion Gap 9 mmol/L BUN 14 (9-20) mg/dL Creatinine 0.90 (0.66-1.25) mg/dL Est GFR (CKD-EPI)AfAm >90 (>60 ml/min/1.73 sqM) Est GFR (CKD-EPI)NonAf >90 (>60 ml/min/1.73 sqM) Glucose 92 (74-99) mg/dL Calcium 10.1 (8.4-10.2) mg/dL Magnesium 2.1 (1.6-2.3) mg/dL Total Bilirubin 0.8 (0.2-1.3) mg/dL AST 18 (17-59) U/L ALT 26 (21-72) U/L Alkaline Phosphatase 55 (38-126) U/L Troponin I (0.000-0.034) ng/mL Total Protein 7.8 (6.3-8.2) g/dL Albumin 4.8 (3.5-5.0) g/dL 09/01/18 Range/Units 09:45 WBC (3.8-10.6) k/uL RBC (4.30-5.90) m/uL Hgb (13.0-17.5) gm/dL Hct (39.0-53.0) % MCV (80.0-100.0) fL MCH (25.0-35.0) pg MCHC (31.0-37.0) g/dL RDW (11.5-15.5) % Plt Count (150-450) k/uL Neutrophils % % Lymphocytes % % Monocytes % % Eosinophils % % Basophils % % Neutrophils # (1.3-7.7) k/uL Lymphocytes # (1.0-4.8) k/uL Monocytes # (0-1.0) k/uL Eosinophils # (0-0.7) k/uL Basophils # (0-0.2) k/uL PT (9.0-12.0) sec INR (<1.2) APTT (22.0-30.0) sec D-Dimer (<0.60) mg/L FEU Sodium (137-145) mmol/L Potassium (3.5-5.1) mmol/L Chloride (98-107) mmol/L Carbon Dioxide (22-30) mmol/L Anion Gap mmol/L BUN (9-20) mg/dL Creatinine (0.66-1.25) mg/dL Est GFR (CKD-EPI)AfAm (>60 ml/min/1.73 sqM) Est GFR (CKD-EPI)NonAf (>60 ml/min/1.73 sqM) Glucose (74-99) mg/dL Calcium (8.4-10.2) mg/dL Magnesium (1.6-2.3) mg/dL Total Bilirubin (0.2-1.3) mg/dL AST (17-59) U/L ALT (21-72) U/L Alkaline Phosphatase (38-126) U/L Troponin I <0.012 (0.000-0.034) ng/mL Total Protein (6.3-8.2) g/dL Albumin (3.5-5.0) g/dL Disposition Clinical Impression: Chest wall muscle strain Disposition: HOME SELF-CARE Condition: Good Instructions (If sedation given, give patient instructions): Costochondritis (ED) Is patient prescribed a controlled substance at d/c from ED?: No Referrals: Ritesh Avendano MD [Primary Care Provider] - 1-2 days Time of Disposition: 11:07
[2018-09-01 10:22] LABS: Basophils % (A) 1 %; Eosinophils # (A) 0.1 k/uL (0-0.7); Eosinophils % (A) 3 %; HCT 41.6 % (39.0-53.0); HGB 13.7 gm/dL (13.0-17.5); Lymphocytes # (A) 1.1 k/uL (1.0-4.8); Lymphocytes % (A) 23 %; MCH 28.5 pg (25.0-35.0); MCHC 32.9 g/dL (31.0-37.0); MCV 86.6 fL (80.0-100.0); Mean Platelet Volume 7.3; Monocytes # (A) 0.3 k/uL (0-1.0); Monocytes % (A) 7 %; Neutrophils % (A) 65 %; Platelet Count 286 k/uL (150-450); RBC 4.81 m/uL (4.30-5.90); RDW 13.4 % (11.5-15.5); WBC 4.6 k/uL (3.8-10.6)
--- NOTE | 2018-09-01 10:22 | XR ---
EXAMINATION TYPE: XR chest 2V DATE OF EXAM: 09/01/2018 COMPARISON: 07/07/2018 HISTORY: Chest pain TECHNIQUE: Frontal and lateral views of the chest are obtained. FINDINGS: There is no focal air space opacity, pleural effusion, or pneumothorax seen. The cardiac silhouette size is within normal limits. The osseous structures are intact. IMPRESSION: No acute cardiopulmonary process.
[2018-09-01 10:33] LABS: ALT 26 U/L (21-72); AST 18 U/L (17-59); Albumin 4.8 g/dL (3.5-5.0); Alkaline Phosphatase 55 U/L (38-126); Anion Gap 9 mmol/L; Blood Urea Nitrogen 14 mg/dL (9-20); Calcium 10.1 mg/dL (8.4-10.2); Carbon Dioxide 25 mmol/L (22-30); Chloride 106 mmol/L (98-107); Glucose 92 mg/dL (74-99); Magnesium 2.1 mg/dL (1.6-2.3); Potassium 4.8 mmol/L (3.5-5.1); Sodium 140 mmol/L (137-145); Total Bilirubin 0.8 mg/dL (0.2-1.3); Total Protein 7.8 g/dL (6.3-8.2)
[2018-09-01 10:34] LABS: D-Dimer 0.24 mg/L FEU (<0.60); INR 0.9 (<1.2); Prothrombin Time 10.1 sec (9.0-12.0)
[2018-09-01 10:45] LABS: Partial Thromboplastin Time 20.6 sec (22.0-30.0)
[2018-09-01] MEDS ORDERED: LIDOCAINE 5% PATCH TOPICAL STA ×2 (11:07→11:16)
[2018-09-01 11:25] VITALS: BP 127/87; PULSE 71; RESP 18; TEMP 98
== END 2018-09-01 11:22 | disposition home or self-care (01) ==
LOC: EC 09:29
DX: S29.011A Strain of muscle and tendon of front wall of thorax, initial encounter (principal); E78.5 Hyperlipidemia, unspecified; I10 Essential (primary) hypertension; Z79.82 Long term (current) use of aspirin; Z79.899 Other long term (current) drug therapy; X50.1XXA Overexertion from prolonged static or awkward postures, initial encounter; Y93.89 Activity, other specified
CPT/HCPCS: 36415; 71046; 80053; 83735; 84484; 85025; 85379; 85610; 85730; 93005; 99285

== ENCOUNTER 2018-11-08 10:27 | Observation (INO) | payer BC ==
[2018-11-08] MEDS ORDERED: ASPIRIN 81 MG PO STA (10:56)
--- NOTE | 2018-11-08 11:27 | ED ---
General Adult HPI - General Source: patient, RN notes reviewed Mode of arrival: ambulatory Limitations: no limitations <Octavio Burden - Last Filed: 11/08/18 13:35> <Vinod Valdez - Last Filed: 11/08/18 13:51> - General Chief complaint: Shortness of Breath Stated complaint: Chest Pain Time Seen by Provider: 11/08/18 10:39 - History of Present Illness Initial comments: This a 48-year-old male presents emergency Department chief complaint of chest discomfort. Patient states he's had some pressure and pain is left-sided his chest into his back in his left arm. Patient states that it does hurt if you press on his chest. Patient states that he history of hyperlipidemia, hypertension and has been on prednisone for reaction from bee sting. Patient has no history of PE or DVT. Patient states his stress test last year which was normal. Patient denies any URI symptoms, fever or chills. He does state that he's been extremely lightheaded and near syncopal. (Octavio Burden) - Related Data Home Medications Medication Instructions Recorded Confirmed Simvastatin [Zocor] 20 mg PO DAILY 03/03/15 11/08/18 Lisinopril [Prinivil] 10 mg PO HS 10/18/17 11/08/18 Aspirin EC [Ecotrin Low Dose] 81 mg PO DAILY 09/01/18 11/08/18 Cholecalciferol [Vitamin D3 (25 1,000 unit PO DAILY 09/01/18 11/08/18 Mcg = 1000 Iu)] [place]-3 Fatty Acids/Fish Oil [Fish 1 cap PO BID 11/08/18 11/08/18 Oil 1,000 mg Softgel] methylPREDNISolone [Medrol Dose See Taper PO DIRECTED 11/08/18 11/08/18 Pack] Allergies Allergy/AdvReac Type Severity Reaction Status Date / Time No Known Allergies Allergy Verified 11/08/18 10:58 Review of Systems ROS Other: All systems not noted in ROS Statement are negative. <Octavio Burden - Last Filed: 11/08/18 13:35> ROS Other: All systems not noted in ROS Statement are negative. <Vinod Valdez - Last Filed: 11/08/18 13:51> ROS Statement: Those systems with pertinent positive or pertinent negative responses have been documented in the HPI. Past Medical History Past Medical History: Hyperlipidemia, Hypertension Additional Past Medical History / Comment(s): 03/04/15 Pt presented to [facility] ER with chest pain. He was seen in ER yesterday for chest pain-he was tx with nitro x 3 and left AMA. He had reoccurrence of chest pain which radiated up to L neck and down L arm. He also had some pain with movement but states pain is more of a constant type pain. He states he fell yesterday and landed on his L shoulder. History of Any Multi-Drug Resistant Organisms: None Reported Past Surgical History: No Surgical Hx Reported Additional Past Surgical History / Comment(s): colonoscopy, wisdom teeth extraction. Past Anesthesia/Blood Transfusion Reactions: Postoperative Nausea & Vomiting (PONV) Past Psychological History: No Psychological Hx Reported Smoking Status: Never smoker Past Alcohol Use History: Occasional Past Drug Use History: None Reported - Past Family History Father Family Medical History: Coronary Artery Disease (CAD) Additional Family Medical History / Comment(s): Father recently. He was 65 yrs old. Mother Family Medical History: No Reported History Additional Family Medical History / Comment(s): Mother is healthy and 65 yrs old. <Octavio Burden - Last Filed: 11/08/18 13:35> General Exam Limitations: no limitations General appearance: alert, in no apparent distress Head exam: Present: atraumatic, normocephalic, normal inspection Eye exam: Present: normal appearance, PERRL, EOMI. Absent: scleral icterus, conjunctival injection, periorbital swelling ENT exam: Present: normal exam, normal oropharynx, mucous membranes moist Neck exam: Present: normal inspection, full ROM. Absent: tenderness, meningismus, lymphadenopathy Respiratory exam: Present: normal lung sounds bilaterally, chest wall tenderness. Absent: respiratory distress, wheezes, rales, rhonchi, stridor Cardiovascular Exam: Present: regular rate, normal rhythm, normal heart sounds. Absent: systolic murmur, diastolic murmur, rubs, gallop, clicks GI/Abdominal exam: Present: soft, normal bowel sounds. Absent: distended, tenderness, guarding, rebound, rigid Back exam: Absent: CVA tenderness (R), CVA tenderness (L) Psychiatric exam: Present: normal affect, normal mood Skin exam: Present: warm, dry, intact, normal color. Absent: rash <Octavio Burden - Last Filed: 11/08/18 13:35> Course Vital Signs 11/08/18 11/08/18 10:36 12:28 Temperature 98.4 F Pulse Rate 65 66 Respiratory 18 18 Rate Blood Pressure 147/100 152/95 O2 Sat by Pulse 99 100 Oximetry EKG Findings - EKG Comments: EKG Findings:: EKG performed at 11:27 normal sinus rhythm rate of 78 CT 142 QRS 82 QT/QTC 374/403 <Octavio Burden - Last Filed: 11/08/18 13:35> Medical Decision Making - Lab Data Result diagrams: 11/08/18 11:10 11/08/18 11:10 <Octavio Burden - Last Filed: 11/08/18 13:35> - Lab Data Result diagrams: 11/08/18 11:10 11/08/18 11:10 <Vinod Valdez - Last Filed: 11/08/18 13:51> - Medical Decision Making 40-year-old male presented for chest pain, upper back pain. Patient has normal labs, normal EKG and normal chest x-ray at this time the systolic concerning for Cardiac disease patient will be admitted for cardiology evaluation possible stress test and echo. (Octavio Burden) Case discussed with practitioner Octavio. Chart on results reviewed. Case also discussed with Dr. Lemus, who will admit for Dr. Mcdowell. (Vinod Valdez) - Lab Data Lab Results 11/08/18 11/08/18 11/08/18 Range/Units 11:10 11:10 11:10 WBC 6.9 (3.8-10.6) k/uL RBC 4.88 (4.30-5.90) m/uL Hgb 14.0 (13.0-17.5) gm/dL Hct 42.1 (39.0-53.0) % MCV 86.4 (80.0-100.0) fL MCH 28.8 (25.0-35.0) pg MCHC 33.3 (31.0-37.0) g/dL RDW 13.3 (11.5-15.5) % Plt Count 282 (150-450) k/uL Neutrophils % 68 % Lymphocytes % 22 % Monocytes % 7 % Eosinophils % 0 % Basophils % 0 % Neutrophils # 4.7 (1.3-7.7) k/uL Lymphocytes # 1.5 (1.0-4.8) k/uL Monocytes # 0.5 (0-1.0) k/uL Eosinophils # 0.0 (0-0.7) k/uL Basophils # 0.0 (0-0.2) k/uL PT 10.2 (9.0-12.0) sec INR 0.9 (<1.2) APTT 21.7 L (22.0-30.0) sec D-Dimer 0.22 (<0.60) mg/L FEU Sodium 139 (137-145) mmol/L Potassium 4.2 (3.5-5.1) mmol/L Chloride 104 (98-107) mmol/L Carbon Dioxide 24 (22-30) mmol/L Anion Gap 11 mmol/L BUN 17 (9-20) mg/dL Creatinine 0.80 (0.66-1.25) mg/dL Est GFR (CKD-EPI)AfAm >90 (>60 ml/min/1.73 sqM) Est GFR (CKD-EPI)NonAf >90 (>60 ml/min/1.73 sqM) Glucose 93 (74-99) mg/dL Calcium 9.8 (8.4-10.2) mg/dL Magnesium 2.0 (1.6-2.3) mg/dL Total Bilirubin 0.8 (0.2-1.3) mg/dL AST 16 L (17-59) U/L ALT 23 (21-72) U/L Alkaline Phosphatase 50 (38-126) U/L Troponin I (0.000-0.034) ng/mL NT-Pro-B Natriuret Pep pg/mL Total Protein 7.5 (6.3-8.2) g/dL Albumin 4.4 (3.5-5.0) g/dL 11/08/18 11/08/18 Range/Units 11:10 11:10 WBC (3.8-10.6) k/uL RBC (4.30-5.90) m/uL Hgb (13.0-17.5) gm/dL Hct (39.0-53.0) % MCV (80.0-100.0) fL MCH (25.0-35.0) pg MCHC (31.0-37.0) g/dL RDW (11.5-15.5) % Plt Count (150-450) k/uL Neutrophils % % Lymphocytes % % Monocytes % % Eosinophils % % Basophils % % Neutrophils # (1.3-7.7) k/uL Lymphocytes # (1.0-4.8) k/uL Monocytes # (0-1.0) k/uL Eosinophils # (0-0.7) k/uL Basophils # (0-0.2) k/uL PT (9.0-12.0) sec INR (<1.2) APTT (22.0-30.0) sec D-Dimer (<0.60) mg/L FEU Sodium (137-145) mmol/L Potassium (3.5-5.1) mmol/L Chloride (98-107) mmol/L Carbon Dioxide (22-30) mmol/L Anion Gap mmol/L BUN (9-20) mg/dL Creatinine (0.66-1.25) mg/dL Est GFR (CKD-EPI)AfAm (>60 ml/min/1.73 sqM) Est GFR (CKD-EPI)NonAf (>60 ml/min/1.73 sqM) Glucose (74-99) mg/dL Calcium (8.4-10.2) mg/dL Magnesium (1.6-2.3) mg/dL Total Bilirubin (0.2-1.3) mg/dL AST (17-59) U/L ALT (21-72) U/L Alkaline Phosphatase (38-126) U/L Troponin I <0.012 (0.000-0.034) ng/mL NT-Pro-B Natriuret Pep 39 pg/mL Total Protein (6.3-8.2) g/dL Albumin (3.5-5.0) g/dL Disposition <Octavio Burden - Last Filed: 11/08/18 13:35> <Vinod Valdez - Last Filed: 11/08/18 13:51> Clinical Impression: Chest pain Disposition: ADMITTED IP TO THIS [facility] Condition: Stable Referrals: Ritesh Avendano MD [Primary Care Provider] - 1-2 days
[2018-11-08 12:05] LABS: Basophils % (A) 0 %; Eosinophils % (A) 0 %; HCT 42.1 % (39.0-53.0); Lymphocytes # (A) 1.5 k/uL (1.0-4.8); Lymphocytes % (A) 22 %; MCH 28.8 pg (25.0-35.0); MCHC 33.3 g/dL (31.0-37.0); MCV 86.4 fL (80.0-100.0); Mean Platelet Volume 6.6; Monocytes # (A) 0.5 k/uL (0-1.0); Monocytes % (A) 7 %; Neutrophils # (A) 4.7 k/uL (1.3-7.7); Neutrophils % (A) 68 %; Platelet Count 282 k/uL (150-450); RBC 4.88 m/uL (4.30-5.90); RDW 13.3 % (11.5-15.5); WBC 6.9 k/uL (3.8-10.6)
[2018-11-08 12:22] LABS: ALT 23 U/L (21-72); AST 16 U/L (17-59); African American GFR (CKD) >90 (>60 ml/min/1.73 sqM); Albumin 4.4 g/dL (3.5-5.0); Alkaline Phosphatase 50 U/L (38-126); Anion Gap 11 mmol/L; Blood Urea Nitrogen 17 mg/dL (9-20); Calcium 9.8 mg/dL (8.4-10.2); Carbon Dioxide 24 mmol/L (22-30); Chloride 104 mmol/L (98-107); Glucose 93 mg/dL (74-99); Potassium 4.2 mmol/L (3.5-5.1); Sodium 139 mmol/L (137-145); Total Bilirubin 0.8 mg/dL (0.2-1.3); Total Protein 7.5 g/dL (6.3-8.2)
[2018-11-08 12:24] LABS: D-Dimer 0.22 mg/L FEU (<0.60); INR 0.9 (<1.2); Prothrombin Time 10.2 sec (9.0-12.0)
--- NOTE | 2018-11-08 12:30 | XR ---
EXAMINATION TYPE: XR chest 2V DATE OF EXAM: 11/08/2018 COMPARISON: Prior chest x-ray 09/01/2018 HISTORY: Difficulty breathing, chest pain TECHNIQUE: Frontal and lateral views of the chest are obtained. FINDINGS: There are overlying cardiac leads. There is no focal air space opacity, pleural effusion, o r pneumothorax seen. The cardiac silhouette size is within normal limits. The osseous structures a re intact. IMPRESSION: No acute cardiopulmonary process.
[2018-11-08 12:35] LABS: Partial Thromboplastin Time 21.7 sec (22.0-30.0)
[2018-11-08] MEDS ORDERED: NITROGLYCERIN SL TABS 0.4 MG TAB SUBLINGUAL PRN (13:37)
[2018-11-08] MEDS ORDERED: HEPARIN SODIUM,PORCINE 5,000 UNIT/ML 1 ML VIAL IV ONE (13:37)
[2018-11-08] MEDS ORDERED: HEPARIN SOD,PORK IN 0.45% NACL 25,000 UNIT in 0.45% NACL 1 250ML.BAG IV SCH (13:45)
[2018-11-08] MEDS ORDERED: LORazepam 2 MG/ML INJ IV STA (15:51)
[2018-11-08 16:26] VITALS: BMI 27.7
[2018-11-08] MEDS ORDERED: LISINOPRIL 10 MG TAB PO SCH (21:00)
[2018-11-08] MEDS ORDERED: NON-FORMULARY DRUG (Omega-3 Fatty Acids/Fish Oil [Fish Oil 1,000 Mg Softgel] 1 CAP) PO SCH (21:00)
[2018-11-08] MEDS ORDERED: RX INFO: IV CONTRAST WAS GIVEN 1 EACH MISC MISCELLANE PRN (23:41)
--- NOTE | 2018-11-08 23:48 | P.HPIM ---
History of Present Illness H&P Date: 11/08/18 Chief Complaint: Chest pain History of presenting complaint: This is a pleasant [address] Ritesh Mcdowell. Chronic stable medical conditions include hypertension, hyperlipidemia. Patient complains of chest pain present for last few days. Not really related to exertion. Can, but anytime. Patient is noticed to be more prominent when he is laying down. Sometimes may travel to was left shoulder. Patient not short of breath. He does notice that when he gets up he does get to dizzy. Quite suddenly tried to get up yesterday morning. Hence he decided to present to. No fever no chills. No cough. No cough swelling. No prolonged period of inactivity. Patient was admitted to rule out a cardiac cause. Review of systems: GEN.: None EYES: None HEENT: None NECK: None RESPIRATORY: As above CARDIOVASCULAR: As above GASTROINTESTINAL: None GENITOURINARY: None MUSCULOSKELETAL: None LYMPHATICS: None HEMATOLOGICAL: None PSYCHIATRY: None NEUROLOGICAL: None Past medical history: Hypertension, hyperlipidemia Social history: , does not smoke. 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 EYES: Pupils equal. Conjunctiva normal. HEENT: External appearance of nose and ears normal, oral cavity grossly normal. NECK: JVD not raised; masses not palpable. HEART: First and second heart sounds are normal; no edema. Prominent P2 in the pulmonic area LUNGS: Respiratory rate normal; clear to auscultation. ABDOMEN: Soft, nontender, liver spleen not palpable, no masses palpable. PSYCH: Alert and oriented x3; mood and affect normal. NEUROLOGICAL: Cranial nerves grossly intact; no facial asymmetry, power and sensation grossly intact. LYMPHATICS: No lymph nodes palpable in the axilla and neck Investigations, reviewed in the clinical context: White count 6.19 globin 14, platelets 22, potassium 4.2, creatinine 0.8, Troponin I 2 less than 0.012 EKG tracing personally reviewed by me shows sinus rhythm Chest x-ray film personally reviewed by me shows no lung alcantar to be cleared Assessment: -This is a patient presents with few days of chest pain. Not related to exertion. Sometimes worse with lying down. Patient also gets dizzy. Like to rule out a PE. Patient has a positive family history and was factors like to rule out underlying cardiac ischemia. Troponins have been negative. Patient will need a stress test. -Essential hypertension -Hyperlipidemia -Pulmonary embolism to be ruled out Plan: Care was discussed with the patient. Serial cardiac enzymes and in place. We'll do a CT chest with contrast with PE protocol to rule out the same. Home medications are renewed. Past Medical History Past Medical History: Hyperlipidemia, Hypertension Additional Past Medical History / Comment(s): 03/04/15 Pt presented to [facility] ER with chest pain. He was seen in ER yesterday for chest pain-he was tx with nitro x 3 and left AMA. He had reoccurrence of chest pain which radiated up to L neck and down L arm. He also had some pain with movement but states pain is more of a constant type pain. He states he fell yesterday and landed on his L shoulder. History of Any Multi-Drug Resistant Organisms: None Reported Past Surgical History: No Surgical Hx Reported Additional Past Surgical History / Comment(s): colonoscopy, wisdom teeth extraction. Past Anesthesia/Blood Transfusion Reactions: Postoperative Nausea & Vomiting (PONV) Past Psychological History: No Psychological Hx Reported Additional Psychological History / Comment(s): Pt resides with his spouse and 2 daughters. He is independent. He drives. He uses no assistive device. He states he is under increased stress lately related to recent of his father and grandmother. Smoking Status: Never smoker Past Alcohol Use History: Occasional Past Drug Use History: None Reported - Past Family History Father Family Medical History: Coronary Artery Disease (CAD) Additional Family Medical History / Comment(s): Father recently. He was 65 yrs old. Mother Family Medical History: No Reported History Additional Family Medical History / Comment(s): Mother is healthy and 65 yrs old. Medications and Allergies Home Medications Medication Instructions Recorded Confirmed Type Simvastatin [Zocor] 20 mg PO DAILY 03/03/15 11/08/18 History Lisinopril [Prinivil] 10 mg PO HS 10/18/17 11/08/18 History Aspirin EC [Ecotrin Low Dose] 81 mg PO DAILY 09/01/18 11/08/18 History Cholecalciferol [Vitamin D3 (25 1,000 unit PO DAILY 09/01/18 11/08/18 History Mcg = 1000 Iu)] [place]-3 Fatty Acids/Fish Oil [Fish 1 cap PO BID 11/08/18 11/08/18 History Oil 1,000 mg Softgel] methylPREDNISolone [Medrol Dose See Taper PO DIRECTED 11/08/18 11/08/18 History Pack] Allergies Allergy/AdvReac Type Severity Reaction Status Date / Time No Known Allergies Allergy Verified 11/08/18 10:58 Physical Exam Vitals: Vital Signs Temp Pulse Pulse Resp BP BP Pulse Ox 11/08/18 20:00 16 11/08/18 18:59 98.4 F 69 16 116/74 99 11/08/18 16:20 97.6 F 70 16 160/106 100 11/08/18 16:17 18 11/08/18 16:00 16 11/08/18 14:47 98.5 F 80 18 153/109 100 11/08/18 12:28 66 18 152/95 100 11/08/18 10:36 98.4 F 65 18 147/100 99 Intake and Output 11/08/18 11/08/18 11/09/18 14:59 22:59 06:59 Intake Total 240 Balance 240 Intake: Oral 240 Other: Voiding Method Toilet # Voids 1 Weight 85.275 kg Results CBC & Chem 7: 11/08/18 11:10 11/08/18 11:10 Labs: Abnormal Lab Results - Last 24 Hours (Table) 11/08/18 11/08/18 11/08/18 Range/Units 11:10 11:10 21:18 APTT 21.7 L 41.9 H (22.0-30.0) sec AST 16 L (17-59) U/L Thrombosis Risk Factor Assmnt - Choose All That Apply Any of the Below Risk Factors Present?: Yes Each Factor Represents 1 point: Age 41-60 years Thrombosis Risk Factor Assessment Total Risk Factor Score: 1 Thrombosis Risk Factor Assessment Level: Low Risk
[2018-11-09 04:10] VITALS: RESP 16
[2018-11-09 06:23] LABS: Mean Platelet Volume 6.9; Platelet Count 248 k/uL (150-450)
[2018-11-09 06:36] LABS: Cholesterol 146 mg/dL (<200); HDL Cholesterol 48 mg/dL (40-60); LDL Cholesterol,Calculated 69 mg/dL (0-99); Triglycerides 144 mg/dL (<150)
--- NOTE | 2018-11-09 08:21 | CONS ---
CONSULTATION Gumaro Landry is a 48-year-old gentleman who is a patient of Dr. Ritesh Avendano who was recently about a year ago in September of last year, had a regular stress test walked for over 9 minutes, did not have any ischemia and has been doing fairly well. About a week ago at the suggestion of his and children, he thought he should get back in shape and start running. On Wednesday when it was hot, he ran and after running for a while he felt some discomfort in the left anterior chest, which he described as a sharp feeling. There was actually tenderness. He could push on it and feel that it was tender when he did the run and it was a hot day 85 degrees. He felt dehydrated and since then he felt weak. Yesterday again he had a sharp pain in the left anterior aspect of his chest. When he pushed over the area he was able to feel the pain. He came into the hospital. His troponin levels are normal. He is resting comfortably without symptoms. Quality of the pain seems musculoskeletal. His D-dimer is negative. He is resting comfortably without symptoms. PAST MEDICAL HISTORY: Past medical history is remarkable for hypertension and hyperlipidemia. He did not have any major surgeries in the past. ALLERGIES: None. MEDICATIONS: Medications include aspirin 81 mg daily, lisinopril 10 mg daily, simvastatin 20 mg daily. PHYSICAL EXAMINATION: On examination, blood pressure is 124/80, pulse rate is 70 per minute regular. HEENT unremarkable. Fundus was not examined by me. Neck is supple. No JVD. I do not hear a carotid bruit. There is no thyromegaly. Heart exam reveals S1, S2 heard normally in all areas without a rub, murmur or gallop. Lungs are clear. Abdomen is soft, nontender. Lower extremities reveal normal pulses. No edema. Central nervous system is normal. EKG revealed sinus mechanism unremarkable for any acute changes. IMPRESSION: 1. Atypical musculoskeletal chest pain. 2. Negative stress test in September of 2017. 3. Hypertension. 4. Hyperlipidemia. RECOMMENDATION: I am recommending that this patient can be discharged today. I believe Dr. Lemus ordered a CT angiogram. I am not sure for the exact reason. Patient's D-dimer is normal. However, patient can be discharged today and I will see him in the office and we will plan outpatient stress testing and initiate him on an exercise program. He can be discharged on his current medical regimen. Advised to increase activity and possible discharge today. I will see him in the office on November 14. Thank you very much for the consult. YAMILET / EMELY: [id number] /
--- NOTE | 2018-11-09 08:34 | CT ---
EXAMINATION TYPE: CT angio chest DATE OF EXAM: 11/09/2018 COMPARISON: Radiographs 11/08/2018 HISTORY: 48-year-old male Chest pain TECHNIQUE: Contiguous axial scanning of the chest performed with IV Contrast, patient injected with 1 00 ml mL of Isovue 370. Coronal/sagittal MIP reconstructions performed. CT DLP: 342.9 mGycm Automated exposure control for dose reduction was used. FINDINGS: Heart normal size without pericardial effusion. Prominent epicardial fat pad accounting for the densi ty at the cardiac apex on radiographs. Aorta normal caliber with conventional arch vessel branching anatomy. Satisfactory opacification of the pulmonary arterial system. Some respiratory motion artifacts in the right lower lobe limiting assessment. No definite pulmonary embolus. No thoracic lymphadenopathy by CT size criteria. Trace bilateral gynecomastia. Visualized upper abdomen shows no gross abnormality. Evaluation of the lungs shows mild centrilobular emphysema. No consolidation or pleural effusion. Bones: No osseous destructive process. IMPRESSION: 1. SOME RESPIRATORY MOTION ARTIFACTS. NO DEFINITE PULMONARY EMBOLUS. 2. NO ACUTE PULMONARY PROCESS.
[2018-11-09] MEDS ORDERED: ASPIRIN 81 MG PO SCH (09:00)
[2018-11-09] MEDS ORDERED: ASPIRIN 325 MG TAB PO SCH (09:00)
[2018-11-09] MEDS ORDERED: CHOLECALCIFEROL 1,000 UNIT TAB PO SCH (09:00)
[2018-11-09] MEDS ORDERED: ATORVASTATIN 10 MG TAB PO SCH (09:00)
[2018-11-09 11:58] VITALS: BP 119/77; PULSE 70; TEMP 98.4
--- NOTE | 2018-11-09 20:38 | P.DS ---
Providers Date of admission: 11/08/18 13:38 Expected date of discharge: 11/09/18 Attending physician: Valentin Lemus Consults: 11/08/18 13:38 Consult Physician Urgent Consulting Provider: Francisco Reaves Consult Reason/Comments: chest pain Do you want consulting provider notified?: Yes Primary care physician: [facility] Course: Hospital course: This is a pleasant [address] Ritesh Mcdowell. Chronic stable medical conditions include hypertension, hyperlipidemia. Patient complains of chest pain present for last few days. Not really related to exertion. Pain is noticed to be more prominent when he is laying down. Sometimes may travel to was left shoulder. Patient not short of breath. He does notice that when he gets up he does get to dizzy. Quite suddenly tried to get up yesterday morning. Hence he decided to come here.. No fever no chills. No cough. No swelling. No prolonged period of inactivity. Patient was admitted to rule out a cardiac cause. CT of the chest was negative for PE. Seen by cardiology. [place] to be musculoskeletal. For outpatient stress test. Consultation: Dr. KENYA Reaves from cardiology Physical examination: VITAL SIGNS: 98.4, 70, 16, 11 9 x 77, 99% room air GENERAL: BMI 27.8, sitting up in bed, comfortable. EYES: Pupils equal. Conjunctiva normal. HEENT: External appearance of nose and ears normal, oral cavity grossly normal. NECK: JVD not raised; masses not palpable. HEART: First and second heart sounds are normal; no edema. Prominent P2 in the pulmonic area LUNGS: Respiratory rate normal; clear to auscultation. ABDOMEN: Soft, nontender, liver spleen not palpable, no masses palpable. PSYCH: Alert and oriented x3; mood and affect normal. Investigations, reviewed in the clinical context: LDL 69 White count 6.19 globin 14, platelets 22, potassium 4.2, creatinine 0.8, Troponin I 3 negative EKG tracing personally reviewed by me shows sinus rhythm Chest x-ray film personally reviewed by me shows no lung alcantar to be cleared Discharge diagnosis: -Anterior chest wall pain, possibly musculoskeletal -Essential hypertension -Hyperlipidemia -Pulmonary embolism to be ruled out Disposition: Home Patient Condition at Discharge: Stable Plan - Discharge Summary Discharge Rx Participant: No New Discharge Prescriptions: Continue Simvastatin [Zocor] 20 mg PO DAILY Lisinopril [Prinivil] 10 mg PO HS Aspirin EC [Ecotrin Low Dose] 81 mg PO DAILY Discontinued methylPREDNISolone [Medrol Dose Pack] See Taper PO DIRECTED No Action Cholecalciferol [Vitamin D3 (25 Mcg = 1000 Iu)] 1,000 unit PO DAILY [place]-3 Fatty Acids/Fish Oil [Fish Oil 1,000 mg Softgel] 1 cap PO BID Discharge Medication List Simvastatin [Zocor] 20 mg PO DAILY 03/03/15 [History] Lisinopril [Prinivil] 10 mg PO HS 10/18/17 [History] Aspirin EC [Ecotrin Low Dose] 81 mg PO DAILY 09/01/18 [History] Cholecalciferol [Vitamin D3 (25 Mcg = 1000 Iu)] 1,000 unit PO DAILY 09/01/18 [History] Henry-3 Fatty Acids/Fish Oil [Fish Oil 1,000 mg Softgel] 1 cap PO BID 11/08/18 [History] Follow up Appointment(s)/Referral(s): Francisco Reaves MD [STAFF PHYSICIAN] - 1 Week ( OFFICE WILL CALL YOU WITH APPOINTMENT) Ritesh Avendano MD [Primary Care Provider] - 11/09/18 5:30 pm Activity/Diet/Wound Care/Special Instructions: Stress test as per CARDIOLOGY REGUALR DIET, KEEP UP ON FLUIDS NO CHANGES TO HOME MEDICATIONS LIMITED ACTIVITY UNTIL FOLLOW UP RETURN TO ER IF YOU DEVELOP CHEST PAIN, WITH SHORTNESS OF BREATH, DIZZINESS, NAUSEA, SWEATING
== END 2018-11-09 14:00 ==
LOC: EC 10:27 → 1SOBS 13:38
PROVIDERS: ADMIT Hospitalist; ATTEND Hospitalist
DX: R07.89 Other chest pain (principal); I10 Essential (primary) hypertension; E78.5 Hyperlipidemia, unspecified; R42 Dizziness and giddiness; R55 Syncope and collapse; M54.6 Pain in thoracic spine; Z79.82 Long term (current) use of aspirin; Z79.899 Other long term (current) drug therapy; W19.XXXA Unspecified fall, initial encounter; Z91.030 Bee allergy status; Z82.49 Family history of ischemic heart disease and other diseases of the circulatory system
CPT/HCPCS: 96366 ×3; 96376; 96365; 96375; 99285; 36415; 93005; 85379; 83880; 80061; 80053; 83735; 84484 ×2; 85025; 85049; 85610; 85730; 71046; 71275; G0378 ×2; J2060; J1644 ×2; Q9967

== ENCOUNTER 2019-01-23 05:35 | Emergency (ER) | payer BC ==
[2019-01-23 05:41] VITALS: TEMP 98.2
--- NOTE | 2019-01-23 05:52 | ED ---
General Adult HPI - General Chief complaint: Chest Pain Stated complaint: CHEST PAIN Time Seen by Provider: 01/23/19 05:49 Source: patient Limitations: no limitations - History of Present Illness Initial comments: Dictation was produced using [employer] dictation software. please excuse any grammatical, word or spelling errors. Chief Complaint: 48-year-old male presents today with chest pain. History of Present Illness: His 48-year-old male. Patient is well-known to emergency department. He has been here multiple times for chest symptoms. Patient states he was seen by his primary care doctor recently for chest pain symptoms. Patient states his pain as sharp located to left anterior chest radiating to the back. He was prescribed steroids for costochondritis. Patient has been evaluated multiple times occasions here in emergency department for chest pain. States reproducible with palpation and with deep inspiration. Patient denies any associated diaphoresis or radiation of symptoms to the extremities. The ROS documented in this emergency department record has been reviewed and confirmed by me. Those systems with pertinent positive or negative responses have been documented in the HPI. All other systems are other negative and/or noncontributory. PHYSICAL EXAM: General Impression: Alert and oriented x3, not in acute distress HEENT: Normocephalic atraumatic, extra-ocular movements intact, pupils equal and reactive to light bilaterally, mucous membranes moist. Cardiovascular: Heart regular rate and rhythm, S1&S2 audible, no murmurs, rubs or gallops Chest: Lungs clear to auscultation bilaterally, no rhonchi, no wheeze, no rales Abdomen: Bowel sounds present, abdomen soft, non-tender, non-distended, no organomegaly Musculoskeletal: Pulses present and equal in all extremities, no peripheral edema Motor: no focal deficits noted Neurological: CN II-XII grossly intact, no focal motor or sensory deficits noted Skin: Intact with no visualized rashes Psych: Normal affect and mood ED course: 48-year-old male presents with atypical chest pain. As upon arrival are within acceptable limits. Patient has had a negative stress tests in September of last year. He has been evaluated here in emergency department multiple occa sions for the same complaint. Patient's symptoms are atypical. He states that the sharp located to the left anterior chest radiating to the back and worse with deep inspiration. He does not have any symptoms or physical exam findings to suggest aortic dissection or pulmonary embolus. Denies any shortness of breath. Patient has no high-risk features. Does have history of dyslipidemia and hypertension. EKGs benign.Laboratory evaluation obtained. Patient provided Lidoderm patch. Patient told to follow-up with primary care physician upon discharge. This point there is no clinical suspicion of tachycardia syndrome given patient's symptomatology, physical examination EKG and laboratory e valuation. Patient notified of these results. Return parameters discussed. Patient clear for discharge. EKG interpretation: Ventricular rate 84, normal sinus rhythm,. 134, care is 82, QTc 432. No NE prolongation, no QTC prolongation, no ST or T-wave changes noted. Overall, this EKG is unremarkable - Related Data Home Medications Medication Instructions Recorded Confirmed Simvastatin [Zocor] 20 mg PO DAILY 03/03/15 11/08/18 Lisinopril [Prinivil] 10 mg PO HS 10/18/17 11/08/18 Aspirin EC [Ecotrin Low Dose] 81 mg PO DAILY 09/01/18 11/08/18 Cholecalciferol [Vitamin D3 (25 1,000 unit PO DAILY 09/01/18 11/08/18 Mcg = 1000 Iu)] [place]-3 Fatty Acids/Fish Oil [Fish 1 cap PO BID 11/08/18 11/08/18 Oil 1,000 mg Softgel] Allergies Allergy/AdvReac Type Severity Reaction Status Date / Time No Known Allergies Allergy Verified 01/23/19 05:41 Review of Systems ROS Statement: Those systems with pertinent positive or pertinent negative responses have been documented in the HPI. ROS Other: All systems not noted in ROS Statement are negative. Past Medical History Past Medical History: Hyperlipidemia, Hypertension Additional Past Medical History / Comment(s): 03/04/15 Pt presented to [facility] ER with chest pain. He was seen in ER yesterday for chest pain-he was tx with nitro x 3 and left AMA. He had reoccurrence of chest pain which radiated up to L neck and down L arm. He also had some pain with movement but states pain is more of a constant type pain. He states he fell yesterday and landed on his L shoulder. History of Any Multi-Drug Resistant Organisms: None Reported Past Surgical History: No Surgical Hx Reported Additional Past Surgical History / Comment(s): colonoscopy, wisdom teeth extraction. Past Anesthesia/Blood Transfusion Reactions: Postoperative Nausea & Vomiting (PONV) Past Psychological History: No Psychological Hx Reported Smoking Status: Never smoker Past Alcohol Use History: Occasional Past Drug Use History: None Reported - Past Family History Father Family Medical History: Coronary Artery Disease (CAD) Additional Family Medical History / Comment(s): Father recently. He was 65 yrs old. Mother Family Medical History: No Reported History Additional Family Medical History / Comment(s): Mother is healthy and 65 yrs old. General Exam Limitations: no limitations Course Vital Signs 01/23/19 01/23/19 05:38 05:41 Temperature 98.2 F Pulse Rate 85 Respiratory 20 20 Rate Blood Pressure 163/104 O2 Sat by Pulse 100 Oximetry Medical Decision Making - Lab Data Result diagrams: 01/23/19 05:53 01/23/19 05:53 Lab Results 01/23/19 01/23/19 01/23/19 Range/Units 05:53 05:53 05:53 WBC 10.8 H (3.8-10.6) k/uL RBC 5.00 (4.30-5.90) m/uL Hgb 13.9 (13.0-17.5) gm/dL Hct 44.5 (39.0-53.0) % MCV 88.9 (80.0-100.0) fL MCH 27.8 (25.0-35.0) pg MCHC 31.3 (31.0-37.0) g/dL RDW 13.4 (11.5-15.5) % Plt Count 331 (150-450) k/uL Neutrophils % 76 % Lymphocytes % 11 % Monocytes % 7 % Eosinophils % 2 % Basophils % 3 % Neutrophils # 8.2 H (1.3-7.7) k/uL Lymphocytes # 1.2 (1.0-4.8) k/uL Monocytes # 0.7 (0-1.0) k/uL Eosinophils # 0.2 (0-0.7) k/uL Basophils # 0.3 H (0-0.2) k/uL Sodium 139 (137-145) mmol/L Potassium 4.6 (3.5-5.1) mmol/L Chloride 103 (98-107) mmol/L Carbon Dioxide 26 (22-30) mmol/L Anion Gap 10 mmol/L BUN 17 (9-20) mg/dL Creatinine 0.79 (0.66-1.25) mg/dL Est GFR (CKD-EPI)AfAm >90 (>60 ml/min/1.73 sqM) Est GFR (CKD-EPI)NonAf >90 (>60 ml/min/1.73 sqM) Glucose 100 H (74-99) mg/dL Calcium 9.9 (8.4-10.2) mg/dL Troponin I <0.012 (0.000-0.034) ng/mL Disposition Clinical Impression: Chest pain Disposition: HOME SELF-CARE Instructions (If sedation given, give patient instructions): Chest Pain (ED) Is patient prescribed a controlled substance at d/c from ED?: No Referrals: Ritesh Avendano MD [Primary Care Provider] - 1-2 days Time of Disposition: 06:54
[2019-01-23] MEDS ORDERED: LIDOCAINE 5% PATCH TOPICAL STA (05:54)
[2019-01-23 06:03] LABS: Basophils # (A) 0.3 k/uL (0-0.2); Basophils % (A) 3 %; Eosinophils # (A) 0.2 k/uL (0-0.7); Eosinophils % (A) 2 %; HCT 44.5 % (39.0-53.0); HGB 13.9 gm/dL (13.0-17.5); Lymphocytes # (A) 1.2 k/uL (1.0-4.8); Lymphocytes % (A) 11 %; MCH 27.8 pg (25.0-35.0); MCHC 31.3 g/dL (31.0-37.0); MCV 88.9 fL (80.0-100.0); Mean Platelet Volume 6.6; Monocytes # (A) 0.7 k/uL (0-1.0); Monocytes % (A) 7 %; Neutrophils # (A) 8.2 k/uL (1.3-7.7); Neutrophils % (A) 76 %; Platelet Count 331 k/uL (150-450); RDW 13.4 % (11.5-15.5); WBC 10.8 k/uL (3.8-10.6)
--- NOTE | 2019-01-23 06:11 | XR ---
EXAM: XR Chest, 2 Views CLINICAL HISTORY: Chest pain. TECHNIQUE: Frontal and lateral views of the chest. COMPARISON: 11/08/2018. FINDINGS: Lungs: Lungs are well aerated. Pleural space: No pneumothorax. No pleural effusion. Heart: Cardiac mediastinal silhouettes are unremarkable. Mediastinum: See above. Bones/joints: Ribs are unremarkable. Thoracic spine is unremarkable. IMPRESSION: No active disease, similar to the previous study.
[2019-01-23 06:13] LABS: African American GFR (CKD) >90 (>60 ml/min/1.73 sqM); Anion Gap 10 mmol/L; Blood Urea Nitrogen 17 mg/dL (9-20); Calcium 9.9 mg/dL (8.4-10.2); Carbon Dioxide 26 mmol/L (22-30); Chloride 103 mmol/L (98-107); Glucose 100 mg/dL (74-99); Sodium 139 mmol/L (137-145)
[2019-01-23 06:14] LABS: Potassium 4.6 mmol/L (3.5-5.1)
[2019-01-23 07:07] VITALS: BP 144/74; PULSE 71; RESP 18
== END 2019-01-23 07:07 | disposition home or self-care (01) ==
LOC: EC 05:35
DX: R07.89 Other chest pain (principal); I10 Essential (primary) hypertension; E78.5 Hyperlipidemia, unspecified; Z79.82 Long term (current) use of aspirin; Z79.899 Other long term (current) drug therapy
CPT/HCPCS: 36415; 71046; 80048; 84484; 85025; 93005; 99285

== ENCOUNTER → 2019-02-04 | Outpatient (CLI) | payer BC ==
--- NOTE | 2019-02-04 13:46 | CT ---
EXAMINATION TYPE: CT sinus wo con DATE OF EXAM: 02/04/2019 COMPARISON: None HISTORY: chronic sinus congestion, pressure headaches. CT DLP: 379.6 mGycm CONTRAST: 0 mL of Isovue 300 The paranasal sinuses are examined in the axial plane at 2 mm thick sections. Reconstructed images i n the coronal plane were obtained. There is dental amalgam scatter artifact The maxillary sinuses are clear. The ethmoid air cells are clear. The sphenoid sinuses are clear. The frontal sinuses are clear. The septum is evaluated. There is septal deviation to the right. The ostiomeatal units are patent. IMPRESSIONS: 1. Right septal deviation. 2. No suspicious changes of acute or chronic sinusitis
== END ==
LOC: RADCTMAIN 13:08
PROVIDERS: ATTEND Internal Medicine
DX: J34.2 Deviated nasal septum (principal)
CPT/HCPCS: 70486

== ENCOUNTER → 2019-05-09 | Outpatient (CLI) | payer BC ==
--- NOTE | 2019-05-09 08:10 | US ---
EXAMINATION TYPE: US abdomen complete DATE OF EXAM: 05/09/2019 COMPARISON: US 10/18/17 CLINICAL HISTORY: R10.11 RUQ ABD PAIN. EXAM MEASUREMENTS: Liver Length: 15.7 cm Gallbladder Wall: 0.2 cm CBD: 0.4 cm Spleen: 10.4 cm Right Kidney: 10.8 x 5.9 x 4.9 cm Left Kidney: 11.3 x 6.5 x 6.4 cm Pancreas: Obscured by bowel gas Liver: Partially Obscured by overlying bowel gas Gallbladder: No stones seen Evidence for sonographic Rod's sign: No CBD: wnl Spleen: Partially Obscured by overlying bowel gas Right Kidney: Partially Obscured by overlying bowel gas Left Kidney: wnl Upper IVC: Obscured by overlying bowel gas Abd Aorta: Proximal and mid portion Obscured by overlying bowel gas Overall sub optimal exam due to large amounts of bowel gas. IMPRESSION: Suboptimal exam due to large amount of bowel gas. No cholelithiasis or acute cholecystiti s. Suboptimal visualization of the liver, spleen, right kidney, and aorta and complete obscuration of the pancreas and upper IVC.
== END | disposition home or self-care (01) ==
LOC: RADUSWWP 06:46
PROVIDERS: ATTEND Surgery
DX: R10.11 Right upper quadrant pain (principal)
CPT/HCPCS: 76700

== ENCOUNTER 2019-05-18 17:43 | Emergency (ER) | payer BC ==
[2019-05-18 17:48] VITALS: TEMP 97.9
[2019-05-18] MEDS ORDERED: hydrALAZINE HCL 20 MG/ML 1 ML VIAL IVP STA (18:19)
[2019-05-18] MEDS ORDERED: ASPIRIN 81 MG PO STA (18:20)
[2019-05-18] MEDS ORDERED: NITROGLYCERIN OINT 1 INCH/GM PACKET TOPICAL STA (18:20)
--- NOTE | 2019-05-18 18:45 | ED ---
General Adult HPI - General Chief complaint: Chest Pain Stated complaint: Chest pain Time Seen by Provider: 05/18/19 17:45 Source: patient, RN notes reviewed, old records reviewed Mode of arrival: ambulatory Limitations: no limitations - History of Present Illness Initial comments: This is a 48-year-old male who presents emergency department with past mental history significant for high blood pressure high cost felt. Patient also states she is confirmation of heart disease. Patient states he had a stress test today because he's been having some intermittent chest pain over the last week. Patient states he did a stress test without any problems. Patient states he went home and shoulder little bit of the driveway he started having some pain in the back of his left arm. Patient states he went into the house and wasn't feeling well he took his blood pressure and heart rate and they were elevated so he waited took a few more times and he continued to elevate so he decided come the emergency department. Patient denies any chest pain now he states he has some arm pain but no chest pain. Patient denies any fever chills or cough. Patient denies any abdominal pain patient as nausea vomiting diarrhea. - Related Data Home Medications Medication Instructions Recorded Confirmed Simvastatin [Zocor] 20 mg PO DAILY 03/03/15 11/08/18 Lisinopril [Prinivil] 10 mg PO HS 10/18/17 11/08/18 Aspirin EC [Ecotrin Low Dose] 81 mg PO DAILY 09/01/18 11/08/18 Cholecalciferol [Vitamin D3 (25 1,000 unit PO DAILY 09/01/18 11/08/18 Mcg = 1000 Iu)] [place]-3 Fatty Acids/Fish Oil [Fish 1 cap PO BID 11/08/18 11/08/18 Oil 1,000 mg Softgel] Allergies Allergy/AdvReac Type Severity Reaction Status Date / Time No Known Allergies Allergy Verified 05/18/19 17:45 Review of Systems ROS Statement: Those systems with pertinent positive or pertinent negative responses have been documented in the HPI. ROS Other: All systems not noted in ROS Statement are negative. Past Medical History Past Medical History: Hyperlipidemia, Hypertension Additional Past Medical History / Comment(s): 03/04/15 Pt presented to [facility] ER with chest pain. He was seen in ER yesterday for chest pain-he was tx with nitro x 3 and left AMA. He had reoccurrence of chest pain which radiated up to L neck and down L arm. He also had some pain with movement but states pain is more of a constant type pain. He states he fell yesterday and landed on his L shoulder. History of Any Multi-Drug Resistant Organisms: None Reported Past Surgical History: No Surgical Hx Reported Additional Past Surgical History / Comment(s): colonoscopy, wisdom teeth extraction. Past Anesthesia/Blood Transfusion Reactions: Postoperative Nausea & Vomiting (PONV) Past Psychological History: No Psychological Hx Reported Smoking Status: Never smoker Past Alcohol Use History: Occasional Past Drug Use History: None Reported - Past Family History Father Family Medical History: Coronary Artery Disease (CAD) Additional Family Medical History / Comment(s): Father recently. He was 65 yrs old. Mother Family Medical History: No Reported History Additional Family Medical History / Comment(s): Mother is healthy and 65 yrs old. General Exam - General Exam Comments Initial Comments: GENERAL: Patient is well-developed and well-nourished. Patient is nontoxic and well- hydrated and is in mild distress. ENT: Neck is soft and supple. No significant lymphadenopathy is noted. Oropharynx is clear. Moist mucous membranes. Neck has full range of motion without eliciting any pain. EYES: The sclera were anicteric and conjunctiva were pink and moist. Extraocular movements were intact and pupils were equal round and reactive to light. Eyelids were unremarkable. PULMONARY: Unlabored respirations. Good breath sounds bilaterally. No audible rales rhonchi or wheezing was noted. CARDIOVASCULAR: There is a regular rate and rhythm without any murmurs gallops or rubs. ABDOMEN: Soft and nontender with normal bowel sounds. SKIN: Skin is clear with no lesions or rashes and otherwise unremarkable. NEUROLOGIC: Patient is alert and oriented x3. Cranial nerves II through XII are grossly intact. Motor and sensory are also intact. Normal speech, volume and content. Symmetrical smile. MUSCULOSKELETAL: Normal extremities with adequate strength and full range of motion. PSYCHIATRIC: Normal psychiatric evaluation. Limitations: no limitations Course Vital Signs 05/18/19 05/18/19 05/18/19 17:45 18:02 19:11 Temperature 97.9 F Pulse Rate 107 H 81 Respiratory 18 16 18 Rate Blood Pressure 156/117 128/84 O2 Sat by Pulse 100 Oximetry Medical Decision Making - Medical Decision Making EKG shows normal sinus rhythm at 97 bpm CO interval 138 QRS is 80 QT interval 344 QTC is 436. Patient's EKG shows no ST segment elevation or depression. Patient stated that the chest pain he's been getting over the last week or so is reproducible with palpation. Chest x-ray shows no acute abnormality. No hypertensive medicines need to be given because the patient's blood pressure came down on his own - Lab Data Result diagrams: 05/18/19 18:01 05/18/19 18:01 Lab Results 05/18/19 05/18/19 05/18/19 Range/Units 18:01 18:01 18:01 WBC 5.8 (3.8-10.6) k/uL RBC 4.91 (4.30-5.90) m/uL Hgb 14.2 (13.0-17.5) gm/dL Hct 42.7 (39.0-53.0) % MCV 87.0 (80.0-100.0) fL MCH 28.9 (25.0-35.0) pg MCHC 33.3 (31.0-37.0) g/dL RDW 12.7 (11.5-15.5) % Plt Count 292 (150-450) k/uL Neutrophils % 61 % Lymphocytes % 27 % Monocytes % 7 % Eosinophils % 2 % Basophils % 1 % Neutrophils # 3.5 (1.3-7.7) k/uL Lymphocytes # 1.6 (1.0-4.8) k/uL Monocytes # 0.4 (0-1.0) k/uL Eosinophils # 0.1 (0-0.7) k/uL Basophils # 0.1 (0-0.2) k/uL PT 10.9 (9.0-12.0) sec INR 1.1 (<1.2) APTT 23.1 (22.0-30.0) sec Sodium 136 L (137-145) mmol/L Potassium 3.9 (3.5-5.1) mmol/L Chloride 102 (98-107) mmol/L Carbon Dioxide 23 (22-30) mmol/L Anion Gap 11 mmol/L BUN 17 (9-20) mg/dL Creatinine 0.92 (0.66-1.25) mg/dL Est GFR (CKD-EPI)AfAm >90 (>60 ml/min/1.73 sqM) Est GFR (CKD-EPI)NonAf >90 (>60 ml/min/1.73 sqM) Glucose 98 (74-99) mg/dL Calcium 10.1 (8.4-10.2) mg/dL Magnesium 2.1 (1.6-2.3) mg/dL Total Bilirubin 1.0 (0.2-1.3) mg/dL AST 28 (17-59) U/L ALT 20 (4-49) U/L Alkaline Phosphatase 72 (38-126) U/L Troponin I (0.000-0.034) ng/mL Total Protein 8.1 (6.3-8.2) g/dL Albumin 4.9 (3.5-5.0) g/dL 05/18/19 Range/Units 18:01 WBC (3.8-10.6) k/uL RBC (4.30-5.90) m/uL Hgb (13.0-17.5) gm/dL Hct (39.0-53.0) % MCV (80.0-100.0) fL MCH (25.0-35.0) pg MCHC (31.0-37.0) g/dL RDW (11.5-15.5) % Plt Count (150-450) k/uL Neutrophils % % Lymphocytes % % Monocytes % % Eosinophils % % Basophils % % Neutrophils # (1.3-7.7) k/uL Lymphocytes # (1.0-4.8) k/uL Monocytes # (0-1.0) k/uL Eosinophils # (0-0.7) k/uL Basophils # (0-0.2) k/uL PT (9.0-12.0) sec INR (<1.2) APTT (22.0-30.0) sec Sodium (137-145) mmol/L Potassium (3.5-5.1) mmol/L Chloride (98-107) mmol/L Carbon Dioxide (22-30) mmol/L Anion Gap mmol/L BUN (9-20) mg/dL Creatinine (0.66-1.25) mg/dL Est GFR (CKD-EPI)AfAm (>60 ml/min/1.73 sqM) Est GFR (CKD-EPI)NonAf (>60 ml/min/1.73 sqM) Glucose (74-99) mg/dL Calcium (8.4-10.2) mg/dL Magnesium (1.6-2.3) mg/dL Total Bilirubin (0.2-1.3) mg/dL AST (17-59) U/L ALT (4-49) U/L Alkaline Phosphatase (38-126) U/L Troponin I <0.012 (0.000-0.034) ng/mL Total Protein (6.3-8.2) g/dL Albumin (3.5-5.0) g/dL Disposition Clinical Impression: Hypertension Disposition: HOME SELF-CARE Instructions (If sedation given, give patient instructions): Hypertension (ED) Is patient prescribed a controlled substance at d/c from ED?: No Referrals: Ritesh Avendano MD [Primary Care Provider] - 1-2 days Time of Disposition: 20:05
[2019-05-18 19:13] LABS: Basophils # (A) 0.1 k/uL (0-0.2); Basophils % (A) 1 %; Eosinophils # (A) 0.1 k/uL (0-0.7); Eosinophils % (A) 2 %; HCT 42.7 % (39.0-53.0); HGB 14.2 gm/dL (13.0-17.5); Lymphocytes # (A) 1.6 k/uL (1.0-4.8); Lymphocytes % (A) 27 %; MCH 28.9 pg (25.0-35.0); MCHC 33.3 g/dL (31.0-37.0); Mean Platelet Volume 7.4; Monocytes # (A) 0.4 k/uL (0-1.0); Monocytes % (A) 7 %; Neutrophils # (A) 3.5 k/uL (1.3-7.7); Neutrophils % (A) 61 %; Platelet Count 292 k/uL (150-450); RBC 4.91 m/uL (4.30-5.90); RDW 12.7 % (11.5-15.5); WBC 5.8 k/uL (3.8-10.6)
[2019-05-18 19:22] LABS: ALT 20 U/L (4-49); AST 28 U/L (17-59); African American GFR (CKD) >90 (>60 ml/min/1.73 sqM); Albumin 4.9 g/dL (3.5-5.0); Alkaline Phosphatase 72 U/L (38-126); Anion Gap 11 mmol/L; Blood Urea Nitrogen 17 mg/dL (9-20); Calcium 10.1 mg/dL (8.4-10.2); Carbon Dioxide 23 mmol/L (22-30); Chloride 102 mmol/L (98-107); Glucose 98 mg/dL (74-99); Magnesium 2.1 mg/dL (1.6-2.3); Non-African American GFR(CKD) >90 (>60 ml/min/1.73 sqM); Sodium 136 mmol/L (137-145); Total Protein 8.1 g/dL (6.3-8.2)
[2019-05-18 19:30] LABS: Potassium 3.9 mmol/L (3.5-5.1)
[2019-05-18 19:33] LABS: INR 1.1 (<1.2); Partial Thromboplastin Time 23.1 sec (22.0-30.0); Prothrombin Time 10.9 sec (9.0-12.0)
--- NOTE | 2019-05-18 20:04 | XR ---
EXAMINATION: XR chest 2V DATE AND TIME: 05/18/2019 7:29 PM CLINICAL INDICATION: PHH; Chest Pain TECHNIQUE: Departmental protocol COMPARISON: 01/23/2019 FINDINGS: The lungs are clear. The pleural spaces are negative. The cardiac silhouette is not enlarged. The remainder of the mediastinal silhouette is unremarkable. The skeletal structures and soft tissues are negative for acute findings. IMPRESSION: NO ACUTE PROCESS.
[2019-05-18 20:07] VITALS: BP 125/87; PULSE 74; RESP 19
== END 2019-05-18 20:12 | disposition home or self-care (01) ==
LOC: EC 17:43
DX: I10 Essential (primary) hypertension (principal); R07.9 Chest pain, unspecified; E78.5 Hyperlipidemia, unspecified; Z79.82 Long term (current) use of aspirin; Z79.899 Other long term (current) drug therapy; Z82.49 Family history of ischemic heart disease and other diseases of the circulatory system
CPT/HCPCS: 36415; 71046; 80053; 83735; 84484; 85025; 85610; 85730; 93005; 99285

== ENCOUNTER 2019-05-25 02:51 | Emergency (ER) | payer BC ==
[2019-05-25 02:55] VITALS: TEMP 97.8
[2019-05-25] MEDS ORDERED: ASPIRIN 81 MG PO STA (03:15)
[2019-05-25] MEDS ORDERED: ACETAMINOPHEN TAB 325 MG TAB PO STA (03:16)
--- NOTE | 2019-05-25 03:17 | ED ---
Chest Pain HPI - General Chief Complaint: Chest Pain Stated Complaint: Racing Heart, Arm Numbness Time Seen by Provider: 05/25/19 02:57 Source: patient Mode of arrival: wheelchair Limitations: no limitations - History of Present Illness MD Complaint: chest pain Onset/Timin -: hour(s) Onset: during rest, awoke with symptoms Pain Location: substernal Pain Radiation: RUE, LUE Quality: aching Consistency: now resolved Improves With: nothing Worsens With: nothing Anginal Symptoms: dyspnea Treatments Prior to Arrival: none - Related Data Home Medications Medication Instructions Recorded Confirmed Simvastatin [Zocor] 20 mg PO DAILY 03/03/15 11/08/18 Lisinopril [Prinivil] 10 mg PO HS 10/18/17 11/08/18 Aspirin EC [Ecotrin Low Dose] 81 mg PO DAILY 09/01/18 11/08/18 Cholecalciferol [Vitamin D3 (25 1,000 unit PO DAILY 09/01/18 11/08/18 Mcg = 1000 Iu)] [place]-3 Fatty Acids/Fish Oil [Fish 1 cap PO BID 11/08/18 11/08/18 Oil 1,000 mg Softgel] Allergies Allergy/AdvReac Type Severity Reaction Status Date / Time No Known Allergies Allergy Verified 05/25/19 02:55 Review of Systems ROS Statement: Those systems with pertinent positive or pertinent negative responses have been documented in the HPI. ROS Other: All systems not noted in ROS Statement are negative. Constitutional: Denies: fever, chills Respiratory: Reports: dyspnea. Denies: cough Cardiovascular: Reports: chest pain, palpitations. Denies: orthopnea, edema, syncope Gastrointestinal: Denies: abdominal pain, nausea, vomiting Genitourinary: Denies: dysuria Musculoskeletal: Denies: back pain Skin: Denies: rash Neurological: Denies: headache, weakness, numbness EKG Findings - EKG Results: EKG: interpreted by ELPIDIO ROCHA, sinus rhythm (Rate 72 bpm), normal axis, normal QRS, normal ST/T, no acute changes - [place], Pacemaker, Normal: Normal tracing: normal tracing Past Medical History Past Medical History: Hyperlipidemia, Hypertension Additional Past Medical History / Comment(s): 03/04/15 Pt presented to [facility] ER with chest pain. He was seen in ER yesterday for chest pain-he was tx with nitro x 3 and left AMA. He had reoccurrence of chest pain which radiated up to L neck and down L arm. He also had some pain with movement but states pain is more of a constant type pain. He states he fell yesterday and landed on his L shoulder. History of Any Multi-Drug Resistant Organisms: None Reported Past Surgical History: No Surgical Hx Reported Additional Past Surgical History / Comment(s): colonoscopy, wisdom teeth extraction. Past Anesthesia/Blood Transfusion Reactions: Postoperative Nausea & Vomiting (PONV) Past Psychological History: No Psychological Hx Reported Smoking Status: Never smoker Past Alcohol Use History: Occasional Past Drug Use History: None Reported - Past Family History Father Family Medical History: Coronary Artery Disease (CAD) Additional Family Medical History / Comment(s): Father recently. He was 65 yrs old. Mother Family Medical History: No Reported History Additional Family Medical History / Comment(s): Mother is healthy and 65 yrs old. General Exam Limitations: no limitations General appearance: alert, in no apparent distress Head exam: Present: atraumatic, normocephalic Eye exam: Present: normal appearance. Absent: scleral icterus, conjunctival injection Respiratory exam: Present: normal lung sounds bilaterally. Absent: respiratory distress, wheezes, rales, rhonchi, stridor Cardiovascular Exam: Present: regular rate, normal rhythm, normal heart sounds. Absent: systolic murmur, diastolic murmur, rubs, gallop GI/Abdominal exam: Present: soft. Absent: distended, tenderness, guarding, rebound, rigid Extremities exam: Present: normal inspection, normal capillary refill. Absent: pedal edema, calf tenderness Back exam: Present: normal inspection. Absent: CVA tenderness (R), CVA tenderness (L) Neurological exam: Present: alert Skin exam: Present: warm, dry, intact, normal color. Absent: rash Course Vital Signs 05/25/19 02:53 Temperature 97.8 F Pulse Rate 82 Respiratory 20 Rate Blood Pressure 157/88 O2 Sat by Pulse 99 Oximetry Chest Pain MDM - [facility] Patient's 48-year-old man who awakened from sleep with episode of chest pain and dyspnea and found his blood pressure and heart rate were high. I suspect this is episode of sleep apnea. The patient has returned to normal. We did discuss following up with pulmonology for sleep study. Also return parameters discussed. Disposition Clinical Impression: Chest pain Disposition: HOME SELF-CARE Condition: Good Instructions (If sedation given, give patient instructions): Chest Pain (ED) Is patient prescribed a controlled substance at d/c from ED?: No Referrals: Ritesh Avendano MD [Primary Care Provider] - 1-2 days
[2019-05-25 03:30] LABS: Basophils % (A) 0 %; Eosinophils # (A) 0.2 k/uL (0-0.7); Eosinophils % (A) 3 %; HCT 41.7 % (39.0-53.0); HGB 14.3 gm/dL (13.0-17.5); Lymphocytes # (A) 1.8 k/uL (1.0-4.8); Lymphocytes % (A) 32 %; MCH 29.9 pg (25.0-35.0); MCHC 34.3 g/dL (31.0-37.0); MCV 87.1 fL (80.0-100.0); Mean Platelet Volume 7.3; Monocytes # (A) 0.3 k/uL (0-1.0); Monocytes % (A) 6 %; Neutrophils # (A) 3.1 k/uL (1.3-7.7); Neutrophils % (A) 55 %; Platelet Count 243 k/uL (150-450); RBC 4.79 m/uL (4.30-5.90); RDW 12.6 % (11.5-15.5); WBC 5.7 k/uL (3.8-10.6)
--- NOTE | 2019-05-25 03:31 | XR ---
EXAMINATION TYPE: XR chest 2V DATE OF EXAM: 05/25/2019 COMPARISON: May 18, 2019 HISTORY: Chest pain TECHNIQUE: 2 views. FINDINGS: Heart and mediastinum are normal. Lungs are clear. Diaphragm is normal. Bony thorax appears normal. IMPRESSION: Normal chest. No change.
[2019-05-25 03:39] LABS: ALT 16 U/L (4-49); AST 20 U/L (17-59); African American GFR (CKD) >90 (>60 ml/min/1.73 sqM); Albumin 4.4 g/dL (3.5-5.0); Alkaline Phosphatase 65 U/L (38-126); Anion Gap 11 mmol/L; Blood Urea Nitrogen 18 mg/dL (9-20); Calcium 9.6 mg/dL (8.4-10.2); Carbon Dioxide 24 mmol/L (22-30); Chloride 103 mmol/L (98-107); Glucose 104 mg/dL (74-99); Magnesium 2.3 mg/dL (1.6-2.3); Non-African American GFR(CKD) >90 (>60 ml/min/1.73 sqM); Potassium 3.6 mmol/L (3.5-5.1); Sodium 138 mmol/L (137-145); Total Bilirubin 0.7 mg/dL (0.2-1.3); Total Protein 7.6 g/dL (6.3-8.2)
[2019-05-25 04:32] VITALS: BP 130/81; PULSE 65; RESP 18
== END 2019-05-25 04:32 | disposition home or self-care (01) ==
LOC: EC 02:51
DX: R07.2 Precordial pain (principal); R06.00 Dyspnea, unspecified; R20.0 Anesthesia of skin; E78.5 Hyperlipidemia, unspecified; I10 Essential (primary) hypertension; Z79.82 Long term (current) use of aspirin; Z79.899 Other long term (current) drug therapy; Z82.49 Family history of ischemic heart disease and other diseases of the circulatory system
CPT/HCPCS: 36415; 71046; 80053; 83735; 84484; 85025; 85610; 85730; 93005; 99285

== ENCOUNTER 2019-08-10 01:36 | Observation (INO) | payer BC ==
--- NOTE | 2019-08-10 02:06 | ED ---
General Adult HPI - General Chief complaint: Chest Pain Stated complaint: Chest Pain Time Seen by Provider: 08/10/19 01:38 Source: patient, RN notes reviewed, old records reviewed Mode of arrival: ambulatory Limitations: no limitations - History of Present Illness Initial comments: 49-year-old male presenting for evaluation of chest pain. Patient has history of hypertension and upper cholesterolemia. He has history of chronic left upper chest pain and left shoulder pain. He has a diagnosis of costochondritis which is currently being treated with diclofenac ointment. Patient states this evening he developed anterior and left-sided chest pain which was burning in nature. Pain began just prior to arrival. Patient states he's had previous episodes of chest pain in the past and has had stress testing which has all been normal. He has no known history of coronary artery disease. He is a nonsmoker. He states the pain is improving and nearly resolved. This was burning left upper, central chest pain. No vomiting. - Related Data Home Medications Medication Instructions Recorded Confirmed Simvastatin [Zocor] 20 mg PO DAILY 03/03/15 11/08/18 Lisinopril [Prinivil] 10 mg PO HS 10/18/17 11/08/18 Aspirin EC [Ecotrin Low Dose] 81 mg PO DAILY 09/01/18 11/08/18 Cholecalciferol [Vitamin D3 (25 1,000 unit PO DAILY 09/01/18 11/08/18 Mcg = 1000 Iu)] [place]-3 Fatty Acids/Fish Oil [Fish 1 cap PO BID 11/08/18 11/08/18 Oil 1,000 mg Softgel] Allergies Allergy/AdvReac Type Severity Reaction Status Date / Time No Known Allergies Allergy Verified 08/10/19 01:41 Review of Systems ROS Statement: Those systems with pertinent positive or pertinent negative responses have been documented in the HPI. ROS Other: All systems not noted in ROS Statement are negative. Past Medical History Past Medical History: Hyperlipidemia, Hypertension Additional Past Medical History / Comment(s): 03/04/15 Pt presented to [facility] ER with chest pain. He was seen in ER yesterday for chest pain-he was tx with nitro x 3 and left AMA. He had reoccurrence of chest pain which radiated up to L neck and down L arm. He also had some pain with movement but states pain is more of a constant type pain. He states he fell yesterday and landed on his L shoulder. History of Any Multi-Drug Resistant Organisms: None Reported Past Surgical History: No Surgical Hx Reported Additional Past Surgical History / Comment(s): colonoscopy, wisdom teeth extraction. Past Anesthesia/Blood Transfusion Reactions: Postoperative Nausea & Vomiting (PONV) Past Psychological History: No Psychological Hx Reported Smoking Status: Never smoker Past Alcohol Use History: Occasional Past Drug Use History: None Reported - Past Family History Father Family Medical History: Coronary Artery Disease (CAD) Additional Family Medical History / Comment(s): Father recently. He was 65 yrs old. Mother Family Medical History: No Reported History Additional Family Medical History / Comment(s): Mother is healthy and 65 yrs old. General Exam Limitations: no limitations General appearance: alert, in no apparent distress Head exam: Present: atraumatic, normocephalic Eye exam: Present: normal appearance, PERRL ENT exam: Present: normal exam Neck exam: Present: normal inspection. Absent: tenderness, meningismus Respiratory exam: Present: normal lung sounds bilaterally, chest wall tenderness (Left upper tenderness to palpation, sternal costal junction). Absent: respiratory distress, wheezes Cardiovascular Exam: Present: regular rate, normal rhythm GI/Abdominal exam: Present: soft. Absent: distended, tenderness Extremities exam: Present: normal inspection, normal capillary refill. Absent: pedal edema Neurological exam: Present: alert, oriented X3, CN II-XII intact. Absent: motor sensory deficit Psychiatric exam: Present: anxious Skin exam: Present: warm, dry, intact. Absent: cyanosis, diaphoretic Course Vital Signs 08/10/19 08/10/19 08/10/19 01:39 01:51 02:49 Temperature 97.3 F L 98.4 F Pulse Rate 95 74 Respiratory 20 16 20 Rate Blood Pressure 154/106 122/95 O2 Sat by Pulse 100 98 Oximetry EKG Findings - EKG Comments: EKG Findings:: EKG: Normal sinus rhythm, rate of 80, MN interval 148, QRS duration 86, QTC 442, no ST segment elevation, no change compared to prior. Repeat EKG: Normal sinus rhythm, rate of 70, MN interval 142, QRS duration 86, QTC 414, no ST segment elevation Medical Decision Making - Medical Decision Making 49-year-old male presenting with chest pain. Patient has history of recurrent chest pain, no history of CAD. He states he's been treated for costochondritis however this pain today is different central chest pain and left-sided chest pain which began just prior to arrival. EKG is sinus rhythm with no ST segment elevation. Chest x-ray negative for acute cardiopulmonary disease. Patient has normal CBC, normal CMP, negative d-dimer, negative initial troponin. Patient will be kept in observation for repeat cardiac enzymes, cardiology consultation. Diagnosis: Chest pain, rule out ACS. - Lab Data Result diagrams: 08/10/19 02:05 08/10/19 02:05 Lab Results 08/10/19 08/10/19 08/10/19 Range/Units 02:05 02:05 02:05 WBC 4.9 (3.8-10.6) k/uL RBC 4.64 (4.30-5.90) m/uL Hgb 13.2 (13.0-17.5) gm/dL Hct 40.1 (39.0-53.0) % MCV 86.4 (80.0-100.0) fL MCH 28.4 (25.0-35.0) pg MCHC 32.9 (31.0-37.0) g/dL RDW 12.9 (11.5-15.5) % Plt Count 260 (150-450) k/uL Neutrophils % 48 % Lymphocytes % 39 % Monocytes % 7 % Eosinophils % 3 % Basophils % 1 % Neutrophils # 2.4 (1.3-7.7) k/uL Lymphocytes # 1.9 (1.0-4.8) k/uL Monocytes # 0.3 (0-1.0) k/uL Eosinophils # 0.2 (0-0.7) k/uL Basophils # 0.0 (0-0.2) k/uL PT 10.2 (9.0-12.0) sec INR 1.0 (<1.2) APTT 21.8 L (22.0-30.0) sec D-Dimer 0.21 (<0.60) mg/L FEU Sodium 138 (137-145) mmol/L Potassium 3.6 (3.5-5.1) mmol/L Chloride 104 (98-107) mmol/L Carbon Dioxide 26 (22-30) mmol/L Anion Gap 8 mmol/L BUN 20 (9-20) mg/dL Creatinine 0.82 (0.66-1.25) mg/dL Est GFR (CKD-EPI)AfAm >90 (>60 ml/min/1.73 sqM) Est GFR (CKD-EPI)NonAf >90 (>60 ml/min/1.73 sqM) Glucose 97 (74-99) mg/dL Calcium 9.6 (8.4-10.2) mg/dL Magnesium 2.2 (1.6-2.3) mg/dL Total Bilirubin 0.7 (0.2-1.3) mg/dL AST 20 (17-59) U/L ALT 17 (4-49) U/L Alkaline Phosphatase 68 (38-126) U/L Troponin I (0.000-0.034) ng/mL Total Protein 7.5 (6.3-8.2) g/dL Albumin 4.5 (3.5-5.0) g/dL Lipase 203 (23-300) U/L Serum Alcohol <10 mg/dL 08/10/19 Range/Units 02:05 WBC (3.8-10.6) k/uL RBC (4.30-5.90) m/uL Hgb (13.0-17.5) gm/dL Hct (39.0-53.0) % MCV (80.0-100.0) fL MCH (25.0-35.0) pg MCHC (31.0-37.0) g/dL RDW (11.5-15.5) % Plt Count (150-450) k/uL Neutrophils % % Lymphocytes % % Monocytes % % Eosinophils % % Basophils % % Neutrophils # (1.3-7.7) k/uL Lymphocytes # (1.0-4.8) k/uL Monocytes # (0-1.0) k/uL Eosinophils # (0-0.7) k/uL Basophils # (0-0.2) k/uL PT (9.0-12.0) sec INR (<1.2) APTT (22.0-30.0) sec D-Dimer (<0.60) mg/L FEU Sodium (137-145) mmol/L Potassium (3.5-5.1) mmol/L Chloride (98-107) mmol/L Carbon Dioxide (22-30) mmol/L Anion Gap mmol/L BUN (9-20) mg/dL Creatinine (0.66-1.25) mg/dL Est GFR (CKD-EPI)AfAm (>60 ml/min/1.73 sqM) Est GFR (CKD-EPI)NonAf (>60 ml/min/1.73 sqM) Glucose (74-99) mg/dL Calcium (8.4-10.2) mg/dL Magnesium (1.6-2.3) mg/dL Total Bilirubin (0.2-1.3) mg/dL AST (17-59) U/L ALT (4-49) U/L Alkaline Phosphatase (38-126) U/L Troponin I <0.012 (0.000-0.034) ng/mL Total Protein (6.3-8.2) g/dL Albumin (3.5-5.0) g/dL Lipase (23-300) U/L Serum Alcohol mg/dL Disposition Clinical Impression: Chest pain Disposition: ADMITTED IP TO THIS [facility] Condition: Stable Is patient prescribed a controlled substance at d/c from ED?: No Referrals: Ritesh Avendano MD [Primary Care Provider] - 1-2 days Decision to Admit Reason: Admit from EC Decision Date: 08/10/19 Decision Time: 03:08
[2019-08-10 02:27] LABS: Basophils % (A) 1 %; Eosinophils # (A) 0.2 k/uL (0-0.7); Eosinophils % (A) 3 %; HCT 40.1 % (39.0-53.0); HGB 13.2 gm/dL (13.0-17.5); Lymphocytes # (A) 1.9 k/uL (1.0-4.8); Lymphocytes % (A) 39 %; MCH 28.4 pg (25.0-35.0); MCHC 32.9 g/dL (31.0-37.0); MCV 86.4 fL (80.0-100.0); Mean Platelet Volume 7.4; Monocytes # (A) 0.3 k/uL (0-1.0); Monocytes % (A) 7 %; Neutrophils # (A) 2.4 k/uL (1.3-7.7); Neutrophils % (A) 48 %; Platelet Count 260 k/uL (150-450); RBC 4.64 m/uL (4.30-5.90); RDW 12.9 % (11.5-15.5); WBC 4.9 k/uL (3.8-10.6)
[2019-08-10 02:33] LABS: ALT 17 U/L (4-49); AST 20 U/L (17-59); African American GFR (CKD) >90 (>60 ml/min/1.73 sqM); Albumin 4.5 g/dL (3.5-5.0); Alcohol <10 mg/dL; Alkaline Phosphatase 68 U/L (38-126); Anion Gap 8 mmol/L; Blood Urea Nitrogen 20 mg/dL (9-20); Calcium 9.6 mg/dL (8.4-10.2); Carbon Dioxide 26 mmol/L (22-30); Chloride 104 mmol/L (98-107); Glucose 97 mg/dL (74-99); Magnesium 2.2 mg/dL (1.6-2.3); Non-African American GFR(CKD) >90 (>60 ml/min/1.73 sqM); Potassium 3.6 mmol/L (3.5-5.1); Sodium 138 mmol/L (137-145); Total Bilirubin 0.7 mg/dL (0.2-1.3); Total Protein 7.5 g/dL (6.3-8.2)
--- NOTE | 2019-08-10 02:42 | XR ---
EXAMINATION TYPE: XR chest 2V DATE OF EXAM: 08/10/2019 COMPARISON: 05/25/2019 HISTORY: Chest pain TECHNIQUE: FINDINGS: Heart and mediastinum are normal. Lungs are clear. Diaphragm is normal. Bony thorax appears normal. There are chest leads. IMPRESSION: Normal chest. No change.
[2019-08-10 02:47] LABS: D-Dimer 0.21 mg/L FEU (<0.60); Prothrombin Time 10.2 sec (9.0-12.0)
[2019-08-10 02:48] LABS: Partial Thromboplastin Time 21.8 sec (22.0-30.0)
[2019-08-10] MEDS ORDERED: ASPIRIN 325 MG TAB PO STA (03:04)
[2019-08-10] MEDS ORDERED: KETOROLAC 30 MG/ML 1 ML VIAL IVP STA (03:04)
[2019-08-10] MEDS ORDERED: NALOXONE 0.4 MG/ML 1 ML VIAL IV PRN (03:05)
[2019-08-10] MEDS ORDERED: FAMOTIDINE 20 MG/2 ML VIAL IV STA (06:37)
[2019-08-10] MEDS: ATORVASTATIN 10 MG TAB PO SCH (08:19)
[2019-08-10] MEDS: ASPIRIN 81 MG PO SCH (08:19)
[2019-08-10] MEDS ORDERED: CALCIUM CARBONATE 500 MG CHEWABLE PO PRN (10:44)
[2019-08-10] MEDS ORDERED: PANTOPRAZOLE 40 MG/10 ML VIAL IVP SCH (17:30)
--- NOTE | 2019-08-10 18:02 | CT ---
EXAMINATION TYPE: CT angio thor/abd pel aorta DATE OF EXAM: 08/10/2019 COMPARISON: None HISTORY: Chest pain, r/o dissection CT DLP: 1543.3 mGycm, Automated exposure control for dose reduction was used. CONTRAST: Performed injected with 100 mL of Isovue 300. TECHNIQUE: Axial images were obtained at 5 mm thick sections. Reconstructed images are reviewed on [employer] computer in the coronal plane. FINDINGS: Portion of the thyroid visualized is normal. There is a three-vessel arch. The ascending thoracic aorta at the level of the main pulmonary artery is 3.3 cm. The aortic arch is 2.2 cm. Ascending thoracic aorta at the diaphragm is 2.2 cm. Superior m esenteric artery and celiac axis are patent. Aorta is normal to the bifurcation. No aneurysmal dilata tion or dissection's are identified. Iliac vessels extend normally to common femoral arteries. Lung windows are clear. No mediastinal or hilar adenopathy enlarged by CT criteria is evident. The main pulmonary artery diameter at the bifurcation is 2.[address] sections timed for evaluation of the aorta are performed through the abdomen and pelvis. Liver spl een pancreas gallbladder and adrenal glands are unremarkable. Kidneys appear normal without masses cy sts or hydronephrosis. Loops of bowel without oral contrast appear unremarkable. The appendix is normal. Loops of bowel within the pelvis are unremarkable. Urinary bladder is decompr essed. Prostate is slightly prominent. No free fluid is within the pelvis. Osseous structures appear unremarkable. IMPRESSIONS: 1. No suspicious abnormality of the aorta. No dissection or aneurysm is evident.
--- NOTE | 2019-08-10 19:14 | P.HPIM ---
History of Present Illness H&P Date: 08/10/19 Chief Complaint: Palpitations History of presenting complaint: This is a pleasant 49-year-old patient of Dr. Ritesh Avendano. Patient woke up early also's morning with his heart racing. And would not stop. He felt lightheaded. Also felt a burning sensation in the chest. Patient had a negative stress test in [facility]. Patient's sats short-lived episode similar kind in the past. Not this prolonged period patient is also had a even monitor for 2 weeks in the past. Decided to come in for the same. Patient reflux symptoms have been getting worse even having the water brash in the throat. No fever no chills no cough or shortness of breath. Denies use of any alcohol or excessive nicotine or caffeine intake. Review of systems: GEN.: None EYES: None HEENT: None NECK: None RESPIRATORY: None CARDIOVASCULAR: As above GASTROINTESTINAL: [As above GENITOURINARY: None MUSCULOSKELETAL: None LYMPHATICS: None HEMATOLOGICAL: None PSYCHIATRY: None NEUROLOGICAL: None Past medical history to include: Hypertension, hyperlipidemia, GERD Social history: Consultation. No Smoking. . Family History: Positive for Coronary Artery Disease Physical examination: VITAL SIGNS: 97.3, 95, 20, 154 106, 100% on room air GENERAL: BMI 26.6, sitting up, not in distress. EYES: Pupils equal. Conjunctiva normal. HEENT: External appearance of nose and ears normal, oral cavity grossly normal. NECK: JVD not raised; masses not palpable. HEART: First and second heart sounds are normal; no edema. LUNGS: Respiratory rate normal; clear to auscultation. ABDOMEN: Soft, nontender, liver spleen not palpable, no masses palpable. PSYCH: Alert and oriented x3; mood and affect normal. NEUROLOGICAL: Cranial nerves grossly intact; no facial asymmetry, power and sensation grossly intact. LYMPHATICS: No lymph nodes palpable in the axilla and neck INVESTIGATIONS, reviewed in the clinical context: White count 4.19:30.2 platelets is 260 potassium 3.6 creatinine 0.82 Troponin I 3 negative Serum alcohol less than 10 Coronavirus PCR not detected EKG tracing personally reviewed by me- sinus rhythm Chest x-ray film personally reviewed by me-lung alcantar clear Assessment: -Patient presents with an episode of severe palpitations heart racing and lightheadedness appears to be paroxysmal arrhythmia. Currently nothing on the telemetry. Patient's had short-lived episodes in the past with a negative event monitor for 2 weeks. Patient will need either a longer duration of event monitor or a loop recorder -Rule out associated unstable angina -Essential hypertension -Hyperlipidemia -Uncontrolled GERD Plan: Patient started on aspirin. Home medications resumed. Patient also put on Dustin and Protonix. Cardiology is consulted. A computed tomography scan of the chest was also done that came back negative for any thoracic aorta dissection. Care was discussed with the patient. Questions were answered. Past Medical History Past Medical History: Hyperlipidemia, Hypertension Additional Past Medical History / Comment(s): 03/04/15 Pt presented to [facility] ER with chest pain. He was seen in ER yesterday for chest pain-he was tx with nitro x 3 and left AMA. He had reoccurrence of chest pain which radiated up to L neck and down L arm. He also had some pain with movement but states pain is more of a constant type pain. He states he fell yesterday and landed on his L shoulder. History of Any Multi-Drug Resistant Organisms: None Reported Past Surgical History: No Surgical Hx Reported Additional Past Surgical History / Comment(s): colonoscopy, wisdom teeth extraction. Past Anesthesia/Blood Transfusion Reactions: Postoperative Nausea & Vomiting (PONV) Past Psychological History: No Psychological Hx Reported Smoking Status: Never smoker Past Alcohol Use History: Occasional Past Drug Use History: None Reported - Past Family History Father Family Medical History: Coronary Artery Disease (CAD) Additional Family Medical History / Comment(s): Father recently. He was 65 yrs old. Mother Family Medical History: No Reported History Additional Family Medical History / Comment(s): Mother is healthy and 65 yrs old. Medications and Allergies Home Medications Medication Instructions Recorded Confirmed Type Simvastatin [Zocor] 20 mg PO DAILY 03/03/15 08/10/19 History Lisinopril [Prinivil] 10 mg PO HS 10/18/17 08/10/19 History Aspirin EC [Ecotrin Low Dose] 81 mg PO DAILY 09/01/18 08/10/19 History Cholecalciferol [Vitamin D3 (25 3,000 unit PO DAILY 09/01/18 08/10/19 History Mcg = 1000 Iu)] [place]-3 Fatty Acids/Fish Oil [Fish 1 cap PO BID 11/08/18 08/10/19 History Oil 1,000 mg Softgel] Diclofenac Sodium Gel [Voltaren 2 gm TOPICAL QID PRN 08/10/19 08/10/19 History Gel] Omeprazole [PriLOSEC] 40 mg PO DAILY PRN 08/10/19 08/10/19 History Vitamin B Complex 1 tab PO DAILY 08/10/19 08/10/19 History Allergies Allergy/AdvReac Type Severity Reaction Status Date / Time No Known Allergies Allergy Verified 08/10/19 08:24 Physical Exam Vitals: Vital Signs Temp Pulse Resp BP Pulse Ox 08/10/19 07:30 71 18 129/86 98 08/10/19 06:53 98.1 F 64 16 138/97 98 08/10/19 05:50 61 16 133/94 98 08/10/19 05:40 61 16 133/94 97 08/10/19 05:30 62 16 133/94 97 08/10/19 05:20 61 20 133/94 97 08/10/19 05:10 61 16 133/94 98 08/10/19 05:00 62 16 133/94 97 08/10/19 04:50 64 8 L 133/94 98 08/10/19 04:40 64 7 L 133/94 97 08/10/19 04:30 64 3 L 133/94 97 08/10/19 04:20 65 5 L 133/94 97 08/10/19 04:10 66 5 L 133/94 97 08/10/19 04:00 64 8 L 133/94 98 08/10/19 03:50 66 11 L 133/94 97 08/10/19 03:40 66 4 L 133/94 98 08/10/19 03:34 70 16 133/94 98 08/10/19 03:30 73 13 122/95 98 08/10/19 03:20 72 15 122/95 98 08/10/19 03:10 75 8 L 122/95 98 08/10/19 03:00 69 7 L 122/95 98 08/10/19 02:50 63 10 L 122/95 97 08/10/19 02:49 98.4 F 74 20 122/95 98 08/10/19 02:40 66 5 L 143/102 08/10/19 02:30 70 6 L 143/102 08/10/19 02:20 74 7 L 143/102 08/10/19 02:10 75 20 143/102 08/10/19 02:00 80 12 143/102 08/10/19 01:57 85 8 L 100 08/10/19 01:51 16 08/10/19 01:39 97.3 F L 95 20 154/106 100 Intake and Output 08/09/19 08/10/19 08/10/19 22:59 06:59 14:59 Other: Weight 81.647 kg Results CBC & Chem 7: 08/10/19 02:05 08/10/19 02:05 Labs: Abnormal Lab Results - Last 24 Hours (Table) 08/10/19 Range/Units 02:05 APTT 21.8 L (22.0-30.0) sec
[2019-08-10] MEDS: CALCIUM CARBONATE LIQUID 500 MG/5 ML CUP PO SCH (19:59)
[2019-08-10] MEDS: ENOXAPARIN 40 MG/0.4 ML SYRINGE SQ SCH (20:00)
[2019-08-10] MEDS: ACETAMINOPHEN TAB 325 MG TAB PO PRN (20:35)
[2019-08-10] MEDS ORDERED: LISINOPRIL 10 MG TAB PO SCH (21:00)
[2019-08-11 04:17] VITALS: RESP 16
[2019-08-11] MEDS: CALCIUM CARBONATE LIQUID 500 MG/5 ML CUP PO SCH ×2 (06:38→11:54)
[2019-08-11] MEDS: ACETAMINOPHEN TAB 325 MG TAB PO PRN (06:41)
[2019-08-11] MEDS ORDERED: PANTOPRAZOLE 40 MG TABLET PO SCH (07:30)
[2019-08-11 08:28] VITALS: TEMP 98.1
[2019-08-11] MEDS: ASPIRIN 81 MG PO SCH (11:53)
[2019-08-11] MEDS: ATORVASTATIN 10 MG TAB PO SCH (11:53)
[2019-08-11] MEDS: ENOXAPARIN 40 MG/0.4 ML SYRINGE SQ SCH (11:54)
[2019-08-11 11:56] VITALS: BP 135/77; PULSE 63
--- NOTE | 2019-08-11 12:03 | P.CRDCN ---
<Emily Lisa - Last Filed: 08/11/19 09:41> History of Present Illness History of present illness: This is Emily Lisa PA-C scribing on behalf of Dr. Jones The patient was interviewed and examined by Dr. Jones HPI Patient is a 49-year-old male with history of hypertension and dyslipidemia who presents with complaints of chest discomfort and palpitations. He states that last night he woke up and felt a pounding in his chest with associated left- sided chest discomfort. By the time he came into the emergency department his symptoms had resolved. He had been seen in the office at [facility] previously for similar symptoms. Stress echocardiogram in 2018 was negative for ischemia. Exercise stress test in the office in May 2019 reviewed, exercised for 9 minutes, no arrhythmias, normal heart rate and blood pressure response to exercise, no EKG changes. Two week event monitor reviewed, patient did have similar symptoms to the symptoms that brought him into the hospital in the event monitor showed sinus tachycardia, no arrhythmias. Vital signs upon arrival temperature 98.3F, pulse 95, respirations 20, blood pressure 154/106, oxygen saturation 90% on room air. Chest x-ray shows no acute process. EKG shows sinus mechanism with subtle early repolarization abnormality in leads 1 and 2, and V2 through V6. D-dimer normal, troponins negative 3. Chest CT shows no aortic aneurysm or dissection. Patient has not had any further episodes of palpitations or chest discomfort since being in the hospital. ROS: No fevers, chills or rigors, no cough, phlegm or expectoration, Positive for abdominal pain and heartburn, denies nausea, vomiting or diarrhea, no hematuria, dysuria, no musculoskeletal complaints, no strokes or seizures, no skin lesions. EXAMINATION: Patient is afebrile, pulse in the 60s, respirations 16, blood pressure 111/69, oxygen saturation 98% on room air Dr. Jones examined the patient Patient is in no acute distress, appears comfortable Heart sounds are normal, normal S1-S2, no murmurs audible Lungs are clear to auscultation bilaterally No JVD Extremity is warm, no edema REVIEW OF LABS, ECG & MEDICAL DATA WBC 4.9, hemoglobin 13.2, platelets 260, potassium 3.9, BUN 20, creatinine 0.82 D-dimer normal Troponin negative x3 Coronavirus not detected No arrhythmias noted on telemetry IMPRESSION / ASSESSMENT: Atypical chest discomfort, troponins negative 3, patient has had 3 stress test in the last 3 years, all are negative for ischemia Recurrent palpitations, no arrhythmias noted on telemetry, sinus tach on event monitor when he had his symptoms Hypertension, blood pressure well controlled Dyslipidemia PLAN: Check TSH Obtain lipid panel Patient may be discharged home to 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 He was seen in ER yesterday for chest pain-he was tx with nitro x 3 and left AMA. He had reoccurrence of chest pain which radiated up to L neck and down L arm. He also had some pain with movement but states pain is more of a constant type pain. He states he fell yesterday and landed on his L shoulder. History of Any Multi-Drug Resistant Organisms: None Reported Past Surgical History: No Surgical Hx Reported Additional Past Surgical History / Comment(s): colonoscopy, wisdom teeth extraction. Past Anesthesia/Blood Transfusion Reactions: Postoperative Nausea & Vomiting (PONV) Past Psychological History: No Psychological Hx Reported Smoking Status: Never smoker Past Alcohol Use History: Occasional Past Drug Use History: None Reported - Past Family History Father Family Medical History: Coronary Artery Disease (CAD) Additional Family Medical History / Comment(s): Father recently. He was 65 yrs old. Mother Family Medical History: No Reported History Additional Family Medical History / Comment(s): Mother is healthy and 65 yrs old. Medications and Allergies Home Medications Medication Instructions Recorded Confirmed Type Simvastatin [Zocor] 20 mg PO DAILY 03/03/15 08/10/19 History Lisinopril [Prinivil] 10 mg PO HS 10/18/17 08/10/19 History Aspirin EC [Ecotrin Low Dose] 81 mg PO DAILY 09/01/18 08/10/19 History Cholecalciferol [Vitamin D3 (25 3,000 unit PO DAILY 09/01/18 08/10/19 History Mcg = 1000 Iu)] [place]-3 Fatty Acids/Fish Oil [Fish 1 cap PO BID 11/08/18 08/10/19 History Oil 1,000 mg Softgel] Diclofenac Sodium Gel [Voltaren 2 gm TOPICAL QID PRN 08/10/19 08/10/19 History Gel] Omeprazole [PriLOSEC] 40 mg PO DAILY PRN 08/10/19 08/10/19 History Vitamin B Complex 1 tab PO DAILY 08/10/19 08/10/19 History Allergies Allergy/AdvReac Type Severity Reaction Status Date / Time No Known Allergies Allergy Verified 08/10/19 08:24 Physical Exam Vitals: Vital Signs Temp Pulse Pulse Resp BP BP Pulse Ox 08/11/19 04:00 97.5 F L 68 16 119/74 100 08/10/19 23:49 67 18 08/10/19 23:48 98.4 F 67 18 108/68 99 08/10/19 20:00 98.3 F 70 16 130/85 97 08/10/19 16:00 85 151/94 100 08/10/19 11:15 98.4 F 73 18 142/89 98 Intake and Output 08/10/19 08/11/19 08/11/19 22:59 06:59 14:59 Intake Total 240 Balance 240 Intake: Oral 240 Other: Voiding Method Toilet Toilet # Voids 2 1 Weight 81.7 kg Results 08/10/19 02:05 08/10/19 02:05 Cardiac Enzymes 08/10/19 08/10/19 Range/Units 08:08 13:27 Troponin I <0.012 <0.012 (0.000-0.034) ng/mL Current Medications Generic Name Dose Route Start Last Admin Trade Name Freq PRN Reason Stop Dose Admin Acetaminophen 650 mg 08/10/19 14:52 08/11/19 06:41 Tylenol Tab PO 650 mg Q6HR PRN Administration Fever and/ or Pain Aspirin 81 mg 08/10/19 09:00 08/10/19 08:19 Aspirin PO 81 mg DAILY FILOMENA Administration Atorvastatin Calcium 10 mg 08/10/19 09:00 08/10/19 08:19 Lipitor PO 10 mg DAILY FILOMENA Administration Calcium Carbonate/Glycine 500 mg 08/10/19 19:14 08/11/19 06:38 Tums Liquid PO 500 mg TID-W/MEALS FILOMENA Administration Enoxaparin Sodium 40 mg 08/10/19 19:15 08/10/19 20:00 Lovenox SQ 40 mg DAILY FILOMENA Administration Lisinopril 10 mg 08/10/19 21:00 08/10/19 19:58 Zestril PO 10 mg HS FILOMENA Administration Naloxone HCl 0.2 mg 08/10/19 03:05 Narcan IV Q2M PRN Opioid Reversal Pantoprazole Sodium 40 mg 08/11/19 07:30 08/11/19 06:38 Protonix PO 40 mg AC-BID FILOMENA Administration Intake and Output 08/10/19 08/11/19 08/11/19 22:59 06:59 14:59 Intake Total 240 Balance 240 Intake: Oral 240 Other: Voiding Method Toilet Toilet # Voids 2 1 Weight 81.7 kg 08/10/19 02:05 08/10/19 02:05 <Juan Antonio Jones - Last Filed: 08/11/19 12:02> Physical Exam Vitals: Vital Signs Temp Pulse Resp BP Pulse Ox 08/11/19 11:50 63 16 135/77 100 08/11/19 08:15 98.1 F 61 16 111/69 98 08/11/19 04:00 97.5 F L 68 16 119/74 100 08/10/19 23:49 67 18 08/10/19 23:48 98.4 F 67 18 108/68 99 08/10/19 20:00 98.3 F 70 16 130/85 97 08/10/19 16:00 85 151/94 100 Intake and Output 08/10/19 08/11/19 08/11/19 22:59 06:59 14:59 Intake Total 240 Balance 240 Intake: Oral 240 Other: Voiding Method Toilet Toilet Toilet # Voids 2 1 2 Weight 81.7 kg Results 08/10/19 02:05 08/10/19 02:05 Cardiac Enzymes 08/10/19 Range/Units 13:27 Troponin I <0.012 (0.000-0.034) ng/mL Lipids 08/11/19 Range/Units 02:05 Triglycerides 146 (<150) mg/dL Cholesterol 167 (<200) mg/dL HDL Cholesterol 38 L (40-60) mg/dL Current Medications Generic Name Dose Route Start Last Admin Trade Name Freq PRN Reason Stop Dose Admin Acetaminophen 650 mg 08/10/19 14:52 08/11/19 06:41 Tylenol Tab PO 650 mg Q6HR PRN Administration Fever and/ or Pain Aspirin 81 mg 08/10/19 09:00 08/11/19 11:53 Aspirin PO 81 mg DAILY FILOMENA Administration Atorvastatin Calcium 10 mg 08/10/19 09:00 08/11/19 11:53 Lipitor PO 10 mg DAILY FILOMENA Administration Calcium Carbonate/Glycine 500 mg 08/10/19 19:14 08/11/19 11:54 Tums Liquid PO 500 mg TID-W/MEALS FILOMENA Administration Enoxaparin Sodium 40 mg 08/10/19 19:15 08/11/19 11:54 Lovenox SQ Not Given DAILY [facility] Lisinopril 10 mg 08/10/19 21:00 08/10/19 19:58 Zestril PO 10 mg HS FILOMENA Administration Naloxone HCl 0.2 mg 08/10/19 03:05 Narcan IV Q2M PRN Opioid Reversal Pantoprazole Sodium 40 mg 08/11/19 07:30 08/11/19 06:38 Protonix PO 40 mg AC-BID FILOMENA Administration Intake and Output 08/10/19 08/11/19 08/11/19 22:59 06:59 14:59 Intake Total 240 Balance 240 Intake: Oral 240 Other: Voiding Method Toilet Toilet Toilet # Voids 2 1 2 Weight 81.7 kg 08/10/19 02:05 08/10/19 02:05
--- NOTE | 2019-08-11 18:41 | P.DS ---
Providers Date of admission: 08/10/19 03:06 Expected date of discharge: 08/11/19 Attending physician: Valentin Lemus Consults: 08/10/19 03:06 Consult Physician Routine Consulting Provider: Juan Antonio Jones Consult Reason/Comments: CP Do you want consulting provider notified?: Yes Primary care physician: [facility] Course: Chief Complaint: Palpitations History of presenting complaint: This is a pleasant 49-year-old patient of Dr. Ritesh Avendano. Patient woke up early also's morning with his heart racing. And would not stop. He felt lightheaded. Also felt a burning sensation in the chest. Patient had a negative stress test in May at [facility]. Patient's sats short-lived episode similar kind in the past. Not this prolonged period patient is also had a even monitor for 2 weeks in the past. Decided to come in for the same. Patient reflux symptoms have been getting worse even having the water brash in the throat. No fever no chills no cough or shortness of breath. Denies use of any alcohol or excessive nicotine or caffeine intake. Troponins were negative. No arrhythmia on the telemetry. Thoracic aorta CT of the chest was negative. Seen by Dr. Jones from cardiology. Cleared for discharge. Out patient stress test has been negative. Patient has uncontrolled GERD. Started on PPIs. Discussed with the patient. Will need outpatient EGD. To follow-up with PCP first. Consultation: Dr. Matthew Jones. Physical examination: VITAL SIGNS: 98.1, 61, 16, 111/69, 98% on room air GENERAL: Sitting up, comfortable. EYES: Pupils equal. Conjunctiva normal. HEENT: External appearance of nose and ears normal, oral cavity grossly normal. NECK: JVD not raised; masses not palpable. HEART: First and second heart sounds are normal; no edema. LUNGS: Respiratory rate normal; clear to auscultation. ABDOMEN: Soft, nontender, liver spleen not palpable, no masses palpable. PSYCH: Alert and oriented x3; mood and affect normal. NEUROLOGICAL: Cranial nerves grossly intact; no facial asymmetry, power and sensation grossly intact. LYMPHATICS: No lymph nodes palpable in the axilla and neck INVESTIGATIONS, reviewed in the clinical context: White count 4.19:30.2 platelets is 260 potassium 3.6 creatinine 0.82 Troponin I 3 negative Serum alcohol less than 10 Coronavirus PCR not detected EKG tracing personally reviewed by me- sinus rhythm Chest x-ray film personally reviewed by me-lung alcantar clear LDL 100 Assessment: -Possible paroxysmal arrhythmia, currently not picked up on telemetry -Essential hypertension -Hyperlipidemia -Uncontrolled GERD Disposition: Home Patient Condition at Discharge: Stable Plan - Discharge Summary New Discharge Prescriptions: Continue Simvastatin [Zocor] 20 mg PO DAILY Lisinopril [Prinivil] 10 mg PO HS Cholecalciferol [Vitamin D3 (25 Mcg = 1000 Iu)] 3,000 unit PO DAILY Aspirin EC [Ecotrin Low Dose] 81 mg PO DAILY [place]-3 Fatty Acids/Fish Oil [Fish Oil 1,000 mg Softgel] 1 cap PO BID Diclofenac Sodium Gel [Voltaren Gel] 2 gm TOPICAL QID PRN PRN Reason: pain in chest and scapula area Vitamin B Complex 1 tab PO DAILY Changed Omeprazole [PriLOSEC] 40 mg PO BID #60 cap Discharge Medication List Simvastatin [Zocor] 20 mg PO DAILY 03/03/15 [History] Lisinopril [Prinivil] 10 mg PO HS 10/18/17 [History] Aspirin EC [Ecotrin Low Dose] 81 mg PO DAILY 09/01/18 [History] Cholecalciferol [Vitamin D3 (25 Mcg = 1000 Iu)] 3,000 unit PO DAILY 09/01/18 [History] [place]-3 Fatty Acids/Fish Oil [Fish Oil 1,000 mg Softgel] 1 cap PO BID 11/08/18 [History] Diclofenac Sodium Gel [Voltaren Gel] 2 gm TOPICAL QID PRN 08/10/19 [History] Vitamin B Complex 1 tab PO DAILY 08/10/19 [History] Omeprazole [PriLOSEC] 40 mg PO BID #60 cap 08/11/19 [Rx] Follow up Appointment(s)/Referral(s): Francisco Reaves MD [STAFF PHYSICIAN] - 08/29/19 9:30 am (In office appointment. ) Ritesh Avendano MD [Primary Care Provider] - 08/14/19 9:45 am Patient Instructions/Handouts: Chest Pain (DC), Heart Healthy Diet (DC) Discharge Disposition: HOME SELF-CARE
== END 2019-08-11 14:55 | disposition home or self-care (01) ==
LOC: EC 01:36 → 3SCARD 03:06
PROVIDERS: ADMIT Hospitalist; ATTEND Hospitalist
DX: R07.89 Other chest pain (principal); R00.2 Palpitations; I10 Essential (primary) hypertension; M94.0 Chondrocostal junction syndrome [Tietze]; R00.0 Tachycardia, unspecified; R42 Dizziness and giddiness; K21.9 Gastro-esophageal reflux disease without esophagitis; G89.29 Other chronic pain; M25.512 Pain in left shoulder; Z03.818 Encounter for observation for suspected exposure to other biological agents ruled out; E78.5 Hyperlipidemia, unspecified; E78.00 Pure hypercholesterolemia, unspecified; Z79.82 Long term (current) use of aspirin; Z79.899 Other long term (current) drug therapy; W19.XXXA Unspecified fall, initial encounter; Z82.49 Family history of ischemic heart disease and other diseases of the circulatory system
CPT/HCPCS: 96372; 96375 ×2; 93005 ×2; 96374; 99285; 36415; 85379; 80061; 80053; 84443; 83690; 83735; 84484; 85025; 85610; 85730; 80320; 87635; 71046; 71275; 74174; G0378 ×2; J1650; J1885; C9113; Q9967

== ENCOUNTER → 2019-10-11 | Outpatient (CLI) | payer BC ==
--- NOTE | 2019-10-11 15:56 | MR ---
EXAMINATION TYPE: MR angio head wo con DATE OF EXAM: 10/11/2019 COMPARISON: None HISTORY: Visual disturbance TECHNIQUE: Time of flight images focusing on the [place] were performed without contrast. Th ree-dimensional reconstructions on an alternate workstation FINDINGS: There is no evident dissection, embolus, or aneurysm. Anterior and posterior circulations a re intact. IMPRESSION: Normal [place] MRA
== END | disposition home or self-care (01) ==
LOC: RADMRIMAIN 13:58
PROVIDERS: ATTEND Internal Medicine
DX: H53.9 Unspecified visual disturbance (principal)
CPT/HCPCS: 70544

== ENCOUNTER → 2020-05-22 | Outpatient (CLI) | payer BC ==
--- NOTE | 2020-05-23 06:40 | MR ---
EXAMINATION TYPE: MR brain/cspine wo DATE OF EXAM: 05/22/2020 COMPARISON: CT brain October 19, 2017. MRI brain April 26 2018 HISTORY: Checking for spots on the brain, has stiffness in neck, numbness on LT side. Paresthesia of the upper limits for order. TECHNIQUE: Multiplanar, multisequence images of the brain and brainstem and cervical spine are all performed wit hout IV contrast. FINDINGS: BRAIN: T2 Lesions Present : Yes Approximate Number of Lesions: Approximately 10-15 Locations Identified : Scattered Size of Reference Lesion(s): 1. 6 x 6 mm deep left parietal lesion on axial image 18 stable Enhancing Lesion(s) Present: n/a Change from Prior: Stable Diffusion weighted images demonstrate no evidence of a recent infarct or other diffusion abnormality. There is no worrisome extra-axial fluid collection. The ventricular system and cisternal spaces ar e normal in size and appearance. The brain volume is age appropriate. Midline structures demonstrate normal morphology. The craniocervical junction appears within normal limits. Vascular flow voids appear within normal limits. The visualized sinuses are clear and the sandy bes are intact. IMPRESSION: Stable mild nonspecific white matter changes redemonstrated. No significant interval anthony . MRI CERVICAL SPINE: FINDINGS: Coronal images show dextroconvex scoliosis or curvature centered upper thoracic spine. Sagi ttal images of the cervical spine show the craniocervical junction to appear within normal limits. T he cervical and upper thoracic spinal cord is normal in course, caliber, and signal. Vertebral align ment is satisfactory on sagittal images. The vertebral body and intravertebral disk heights are norm al. The bone marrow signal intensity is within normal limits. Axial images show C2-C3 and C3-C4 level to appear within normal limits. Axial images at C4-C5 level show right foraminal disc protrusion and uncovertebral facet degenerative change causing mild right-sided neural foraminal narrowing and mild narrowing of the right anterolat eral thecal sac. Axial images at C5-C6, C6-C7, and C7-T1 levels all appear within normal limits. IMPRESSION: Mild degenerative change C4-C5 level.
== END | disposition home or self-care (01) ==
LOC: RADMRIMAIN 16:00
PROVIDERS: ATTEND Family Medicine
DX: M47.812 Spondylosis without myelopathy or radiculopathy, cervical region (principal); R90.82 White matter disease, unspecified
CPT/HCPCS: 70551; 72141

== ENCOUNTER 2022-06-29 12:23 | Observation (INO) | payer BC ==
[2022-06-29 13:07] LABS: Basophils % (A) 1 %; Eosinophils # (A) 0.1 k/uL (0-0.7); Eosinophils % (A) 2 %; HCT 40.6 % (39.0-53.0); HGB 13.9 gm/dL (13.0-17.5); Lymphocytes % (A) 19 %; MCH 29.1 pg (25.0-35.0); MCHC 34.2 g/dL (31.0-37.0); MCV 85.1 fL (80.0-100.0); Mean Platelet Volume 7.2; Monocytes # (A) 0.3 k/uL (0-1.0); Monocytes % (A) 5 %; Neutrophils # (A) 3.6 k/uL (1.3-7.7); Neutrophils % (A) 71 %; Platelet Count 254 k/uL (150-450); RBC 4.77 m/uL (4.30-5.90); RDW 12.9 % (11.5-15.5); WBC 5.1 k/uL (3.8-10.6)
--- NOTE | 2022-06-29 13:20 | XR ---
EXAMINATION TYPE: XR chest 2V DATE OF EXAM: 06/29/2022 COMPARISON: 08/10/2019 HISTORY: 51-year-old male with chest pain TECHNIQUE: PA and lateral views FINDINGS: Heart normal size. Aorta and pulmonary vasculature within normal limits. Hazy density at the cardiac apex suggesting epicardial fat pad. No consolidation or pleural effusion seen. IMPRESSION: No acute cardiopulmonary process.
[2022-06-29 13:24] LABS: ALT 27 U/L (4-49); AST 20 U/L (17-59); African American GFR (CKD) >90 (>60 ml/min/1.73 sqM); Albumin 4.5 g/dL (3.5-5.0); Alkaline Phosphatase 77 U/L (38-126); Anion Gap 9 mmol/L; Blood Urea Nitrogen 13 mg/dL (9-20); Calcium 9.4 mg/dL (8.4-10.2); Carbon Dioxide 25 mmol/L (22-30); Chloride 103 mmol/L (98-107); Glucose 96 mg/dL (74-99); Non-African American GFR(CKD) >90 (>60 ml/min/1.73 sqM); Potassium 4.4 mmol/L (3.5-5.1); Sodium 137 mmol/L (137-145); Total Bilirubin 0.7 mg/dL (0.2-1.3); Total Protein 7.6 g/dL (6.3-8.2)
[2022-06-29 13:49] LABS: INR 0.9 (<1.2); Partial Thromboplastin Time 21.9 sec (22.0-30.0)
--- NOTE | 2022-06-29 14:10 | ED ---
General Adult HPI - General Chief complaint: Chest Pain Stated complaint: Chest Pain Time Seen by Provider: 06/29/22 14:00 Source: patient, RN notes reviewed, old records reviewed Mode of arrival: ambulatory Limitations: no limitations - History of Present Illness Initial comments: This a 51-year-old male has a strong family history for heart disease his grandfather also had an aortic aneurysm that took his life. Patient has high blood pressure high cholesterol. Patient states today when he was driving around started having chest pain the center of his chest and he describes as a burning sensation radiates to his left arm and gets a weird sensation across his back. Patient states it's been there for about 3-4 hours this point. Patient states he's had no shortness of breath or any diaphoretic episodes. Patient denies any vomiting but states he has been nauseated. Patient denies any recent fever chills or cough. Patient denies any lightheadedness or dizziness. Patient denies any swelling to legs or calf tenderness. Patient denies any smoking history. - Related Data Home Medications Medication Instructions Recorded Confirmed Simvastatin [Zocor] 20 mg PO DAILY 03/03/15 08/10/19 lisinopriL [Prinivil] 10 mg PO HS 10/18/17 08/10/19 Aspirin EC [Ecotrin Low Dose] 81 mg PO DAILY 09/01/18 08/10/19 Cholecalciferol [Vitamin D3 (25 3,000 unit PO DAILY 09/01/18 08/10/19 Mcg = 1000 Iu)] [place]-3 Fatty Acids/Fish Oil [Fish 1 cap PO BID 11/08/18 08/10/19 Oil 1,000 mg Softgel] Diclofenac Sodium Gel [Voltaren 2 gm TOPICAL QID PRN 08/10/19 08/10/19 Gel] Vitamin B Complex 1 tab PO DAILY 08/10/19 08/10/19 Previous Rx's Medication Instructions Recorded Omeprazole [PriLOSEC] 40 mg PO BID #60 cap 08/11/19 Allergies Allergy/AdvReac Type Severity Reaction Status Date / Time No Known Allergies Allergy Verified 06/29/22 12:32 Review of Systems ROS Statement: Those systems with pertinent positive or pertinent negative responses have been documented in the HPI. ROS Other: All systems not noted in ROS Statement are negative. Past Medical History Past Medical History: Hyperlipidemia, Hypertension Additional Past Medical History / Comment(s): 03/04/15 Pt presented to [facility] ER with chest pain. He was seen in ER yesterday for chest pain-he was tx with nitro x 3 and left AMA. He had reoccurrence of chest pain which radiated up to L neck and down L arm. He also had some pain with movement but states pain is more of a constant type pain. He states he fell yesterday and landed on his L shoulder. History of Any Multi-Drug Resistant Organisms: None Reported Past Surgical History: No Surgical Hx Reported Additional Past Surgical History / Comment(s): colonoscopy, wisdom teeth extraction. Past Anesthesia/Blood Transfusion Reactions: Postoperative Nausea & Vomiting (PONV) Past Psychological History: No Psychological Hx Reported Smoking Status: Never smoker Past Alcohol Use History: Occasional Past Drug Use History: None Reported - Past Family History Father Family Medical History: Coronary Artery Disease (CAD) Additional Family Medical History / Comment(s): Father recently. He was 65 yrs old. Mother Family Medical History: No Reported History Additional Family Medical History / Comment(s): Mother is healthy and 65 yrs o ld. General Exam - General Exam Comments Initial Comments: GENERAL: Patient is well-developed and well-nourished. Patient is nontoxic and well- hydrated and is in mild distress. ENT: Neck is soft and supple. No significant lymphadenopathy is noted. Oropharynx is clear. Moist mucous membranes. Neck has full range of motion without eliciting any pain. EYES: The sclera were anicteric and conjunctiva were pink and moist. Extraocular movements were intact and pupils were equal round and reactive to light. Eyelids were unremarkable. PULMONARY: Unlabored respirations. Good breath sounds bilaterally. No audible rales rh onchi or wheezing was noted. CARDIOVASCULAR: There is a regular rate and rhythm without any murmurs gallops or rubs. ABDOMEN: Soft and nontender with normal bowel sounds. SKIN: Skin is clear with no lesions or rashes and otherwise unremarkable. NEUROLOGIC: Patient is alert and oriented x3. Cranial nerves II through XII are grossly intact. Motor and sensory are also intact. Normal speech, volume and content. Symmetrical smile. MUSCULOSKELETAL: Normal extremities with adequate strength and full range of motion. No lower extremity swelling or edema. No calf tenderness. LYMPHATICS: No significant lymphadenopathy is noted PSYCHIATRIC: Normal psychiatric evaluation. Limitations: no limitations Course Vital Signs 03/20/23 03/20/23 12:30 14:08 Temperature 97.9 F Pulse Rate 88 78 Respiratory 20 18 Rate Blood Pressure 154/92 136/87 O2 Sat by Pulse 99 99 Oximetry Medical Decision Making - Medical Decision Making EKG is interpreted by myself shows a sinus rhythm at 70 bpm [place] interval 290 QRS is 80 QT interval 357 QTC is 390. Patient's EKG shows no ST segment elevation or depression. Was pt. sent in by a medical professional or institution (, PA, AUDIOLOGY DOCTOR, urgent care, hospital, or prison...) When possible be specific @ -No Did you speak to anyone other than the patient for history (EMS, parent, family, police, friend...)? What history was obtained from this source @ -No Did you review nursing and triage notes (agree or disagree)? Why? @ -I reviewed and agree with nursing and triage notes Were old charts reviewed (outside hosp., previous admission, EMS record, old EKG, old radiological studies, urgent care reports/EKG's, prison records)? Report findings @ -I reviewed prior lab work prior EKGs prior radiological studies on this patient. Differential Diagnosis (chest pain, altered mental status, abdominal pain women, abdominal pain men, vaginal bleeding, weakness, fever, dyspnea, syncope, headache, dizziness, GI bleed, back pain, seizure, CVA, palpatations, mental health, musculoskeletal)? @ -Differential Chest Pain: Stable Angina, Unstable Angina, STEMI, NSTEMI Aortic Dissection, Pneumothorax, Musculoskeletal, Esophageal Spasm GERD, Cholecystitis, Pancreatitis, Zoster, this is not meant to be an all-inclusive list. EKG interpreted by me (3pts min.). @ -As above X-rays interpreted by me (1pt min.). @ -I interpreted the chest x-ray I saw no acute abnormality. CT interpreted by me (1pt min.). @ -None done U/S interpreted by me (1pt. min.). @ -None done What testing was considered but not performed or refused? (CT, X-rays, U/S, labs)? Why? @ -I did consider doing a CT of the chest for PE however the d-dimer was normal he was not tachycardic in the chest pain did not seem pleuritic in nature so I did not order What meds were considered but not given or refused? Why? @ -None Did you discuss the management of the patient with other professionals (professionals i.e. , PA, AUDIOLOGY DOCTOR, lab, RT, psych nurse, social scientist, television news anchor, teacher, child support case officer, case liner)? Give summary @ -I spoke with ramesh physician's he agreed to admit the patient Was smoking cessation discussed for >3mins.? @ -No Was critical care preformed (if so, how long)? @ -No Were there social determinants of health that impacted care today? How? (Homelessness, low income, unemployed, alcoholism, drug addiction, transportation, low edu. Level, literacy, decrease access to med. care, skilled nursing, rehab)? @ -No Was there de-escalation of care discussed even if they declined (Discuss DNR or withdrawal of care, Hospice)? DNR status @ -No What co-morbidities impacted this encounter? (DM, HTN, Smoking, COPD, CAD, Cancer, CVA, ARF, Chemo, Hep., AIDS, mental health diagnosis, sleep apnea, morbid obesity)? @ -Hypertension high cholesterol and family history all of which put him at greater risk for an NC Was patient admitted / discharged? Hospital course, mention meds given and route, prescriptions, significant lab abnormalities, going to OR and other pertinent info. @ -Patient was seen by myself and he continued to have chest pain he had substantial risk factors was at this time but I spoke with ramesh physician's he agreed to admit the patient admitted the patient wrote admitting orders and I consult to cardiology. Undiagnosed new problem with uncertain prognosis? @ -No Drug Therapy requiring intensive monitoring for toxicity (Heparin, Nitro, Ins ulin, Cardizem)? @ -No Were any procedures done? @ -No Diagnosis/symptom? @ -Chest pain Acute, or Chronic, or Acute on Chronic? @ -Acute Uncomplicated (without systemic symptoms) or Complicated (systemic symptoms)? @ -Complicated Side effects of treatment? @ -No Exacerbation, Progression, or Severe Exacerbation? @ -No Poses a threat to life or bodily function? How? (Chest pain, USA, NC, pneumonia, PE, COPD, DKA, ARF, appy, cholecystitis, CVA, Diverticulitis, Homicidal, Suicidal, threat to staff... and all critical care pts) @ -Yes this could lead to an NC which lead to hypoperfusion and end organ dysfunction - Lab Data Result diagrams: 06/29/22 12:48 06/29/22 12:48 Lab Results 06/29/22 06/29/22 06/29/22 Range/Units 12:48 12:48 12:48 WBC 5.1 (3.8-10.6) k/uL RBC 4.77 (4.30-5.90) m/uL Hgb 13.9 (13.0-17.5) gm/dL Hct 40.6 (39.0-53.0) % MCV 85.1 (80.0-100.0) fL MCH 29.1 (25.0-35.0) pg MCHC 34.2 (31.0-37.0) g/dL RDW 12.9 (11.5-15.5) % Plt Count 254 (150-450) k/uL MPV 7.2 Neutrophils % 71 % Lymphocytes % 19 % Monocytes % 5 % Eosinophils % 2 % Basophils % 1 % Neutrophils # 3.6 (1.3-7.7) k/uL Lymphocytes # 1.0 (1.0-4.8) k/uL Monocytes # 0.3 (0-1.0) k/uL Eosinophils # 0.1 (0-0.7) k/uL Basophils # 0.0 (0-0.2) k/uL PT 10.0 (9.0-12.0) sec INR 0.9 (<1.2) APTT 21.9 L (22.0-30.0) sec D-Dimer (<0.60) mg/L FEU Sodium 137 (137-145) mmol/L Potassium 4.4 (3.5-5.1) mmol/L Chloride 103 (98-107) mmol/L Carbon Dioxide 25 (22-30) mmol/L Anion Gap 9 mmol/L BUN 13 (9-20) mg/dL Creatinine 0.86 (0.66-1.25) mg/dL Est GFR (CKD-EPI)AfAm >90 (>60 ml/min/1.73 sqM) Est GFR (CKD-EPI)NonAf >90 (>60 ml/min/1.73 sqM) Glucose 96 (74-99) mg/dL Calcium 9.4 (8.4-10.2) mg/dL Total Bilirubin 0.7 (0.2-1.3) mg/dL AST 20 (17-59) U/L ALT 27 (4-49) U/L Alkaline Phosphatase 77 (38-126) U/L Troponin I (0.000-0.034) ng/mL Total Protein 7.6 (6.3-8.2) g/dL Albumin 4.5 (3.5-5.0) g/dL 06/29/22 06/29/22 Range/Units 12:48 12:48 WBC (3.8-10.6) k/uL RBC (4.30-5.90) m/uL Hgb (13.0-17.5) gm/dL Hct (39.0-53.0) % MCV (80.0-100.0) fL MCH (25.0-35.0) pg MCHC (31.0-37.0) g/dL RDW (11.5-15.5) % Plt Count (150-450) k/uL MPV Neutrophils % % Lymphocytes % % Monocytes % % Eosinophils % % Basophils % % Neutrophils # (1.3-7.7) k/uL Lymphocytes # (1.0-4.8) k/uL Monocytes # (0-1.0) k/uL Eosinophils # (0-0.7) k/uL Basophils # (0-0.2) k/uL PT (9.0-12.0) sec INR (<1.2) APTT (22.0-30.0) sec D-Dimer 0.21 (<0.60) mg/L FEU Sodium (137-145) mmol/L Potassium (3.5-5.1) mmol/L Chloride (98-107) mmol/L Carbon Dioxide (22-30) mmol/L Anion Gap mmol/L BUN (9-20) mg/dL Creatinine (0.66-1.25) mg/dL Est GFR (CKD-EPI)AfAm (>60 ml/min/1.73 sqM) Est GFR (CKD-EPI)NonAf (>60 ml/min/1.73 sqM) Glucose (74-99) mg/dL Calcium (8.4-10.2) mg/dL Total Bilirubin (0.2-1.3) mg/dL AST (17-59) U/L ALT (4-49) U/L Alkaline Phosphatase (38-126) U/L Troponin I <0.012 (0.000-0.034) ng/mL Total Protein (6.3-8.2) g/dL Albumin (3.5-5.0) g/dL Disposition Clinical Impression: Chest pain Disposition: ADMITTED IP TO THIS HOSP Referrals: Quan Randhawa MD [Primary Care Provider] - 1-2 days Time of Disposition: 14:27
[2022-06-29] MEDS ORDERED: NITROGLYCERIN SL TABS 0.4 MG TAB SUBLINGUAL PRN (14:28)
[2022-06-29] MEDS ORDERED: NALOXONE 0.4 MG/ML 1 ML VIAL IV PRN (14:47)
[2022-06-29] MEDS ORDERED: ACETAMINOPHEN TAB 325 MG TAB PO PRN (14:47)
--- NOTE | 2022-06-29 15:02 | P.HPIM ---
History of Present Illness H&P Date: 06/29/22 Patient is a 51-year-old male with PMH of hypertension, dyslipidemia, GERD, costochondritis and presents the ED for chest pain. Patient reports that he has been dealing with left-sided chest pain rated costochondritis over the past 2-3 years. Today, he was driving when he noticed left-sided chest pain that was burning in nature. His pain was radiating to the left arm. He also noticed sharp and stabbing pain along with tingling shooting from his left shoulder to the right back. His symptoms were associated with lightheadedness and feelings of jitteriness. This prompted him to come to the ED. He reports an extensive family history of heart disease including his father who had a CABG at 50 years old and grandfather requiring AAA surgery at 52. He does not smoke any cigarettes. He reports having stress test done 2 years ago which was negative. He follows a Dr. Reaves and was supposed to have an echocardiogram and carotid Doppler done in the outpatient setting. Patient denies any headache, lower extremity edema, nausea or vomiting, diaphoresis, fever or chills, cough, shortness of breath, palpitations, changes in urination or bowel habits. No changes in appetite or weight. Patient is admitted for chest pain, rule out acute coronary syndrome and cardiology consultation. Pertinent positives and negatives as discussed in HPI, a complete review of systems was performed and all other systems are negative. Vital signs show blood pressure 154/92, heart rate of 88, afebrile, respiratory rate of 20 saturating 99% on room air. General: non toxic, no distress, appears at stated age Derm: warm, dry Head: atraumatic, normocephalic, symmetric Eyes: EOMI, no lid lag, anicteric sclera Mouth: no lip lesion, mucus membranes moist Cardiovascular: S1S2 reg, no murmur Lungs: CTA bilateral, no rhonchi, no rales , no accessory muscle use Abdominal: soft, nontender to palpation, no guarding, no appreciable organomegaly Ext: no gross muscle atrophy, no edema, no contractures Neuro: no focal neuro deficits Psych: Alert, oriented, appropriate affect #Chest pain Chronic conditions: Hypertension, dyslipidemia, GERD, costochondritis Based on my assessment of this patient, this patient meets a high complexity level of care. I have reviewed the following bilingual sales consultant notes: None. I have reviewed the results of the following tests: CBC is unremarkable. Correlation panel shows PTT of 21.9. D-dimer 0.21. CMP is unremarkable. Troponins less than 0.012. I have ordered the following tests: Troponin. Echocardiogram. I have discussed the care of this patient with the following independent historian: None. I have independently interpreted the following test below: Chest x-ray is within normal limits. EKG showing sinus rhythm, ventricular rate of [address] elevation or depression. I have discussed the management of this patient with the following physician: The case was discussed with the ED physician with decision to admit the patient for chest pain, rule out acute coronary syndrome. This patient has a high risk of morbidity due to the following reasons: Patient has an acute diagnosis of chest pain that poses a threat to life or bodily function. His HEART score is for putting him at moderate risk for acute coronary syndrome. Initial troponin is less than 0.012 with EKG showing sinus rhythm, ventricular rate of [address] elevation or depression. He was given aspirin 325 mg by mouth in the ED. Troponins were trended and ACS will be ruled out. He'll be continued on aspirin 81 mg by mouth daily and simvastatin 20 my best by mouth daily. Telemetry monitoring will be ordered. Echocardiogram will be ordered. Cardiology will be consulted for further management of this patient. Patient and his decision maker if he can't make decisions for himself. Patient will like to be full code. Lovenox 40 mg subcutaneous daily for DVT prophylaxis. Past Medical History Past Medical History: Hyperlipidemia, Hypertension Additional Past Medical History / Comment(s): 03/04/15 Pt presented to [facility] ER with chest pain. He was seen in ER yesterday for chest pain-he was tx with nitro x 3 and left AMA. He had reoccurrence of chest pain which radiated up to L neck and down L arm. He also had some pain with movement but states pain is more of a constant type pain. He states he fell yesterday and landed on his L shoulder. History of Any Multi-Drug Resistant Organisms: None Reported Past Surgical History: No Surgical Hx Reported Additional Past Surgical History / Comment(s): colonoscopy, wisdom teeth ext raction. Past Anesthesia/Blood Transfusion Reactions: Postoperative Nausea & Vomiting (PONV) Past Psychological History: No Psychological Hx Reported Smoking Status: Never smoker Past Alcohol Use History: Occasional Past Drug Use History: None Reported - Past Family History Father Family Medical History: Coronary Artery Disease (CAD) Additional Family Medical History / Comment(s): Father recently. He was 65 yrs old. Mother Family Medical History: No Reported History Additional Family Medical History / Comment(s): Mother is healthy and 65 yrs old. Medications and Allergies Home Medications Medication Instructions Recorded Confirmed Type Simvastatin [Zocor] 20 mg PO DAILY 03/03/15 08/10/19 History lisinopriL [Prinivil] 10 mg PO HS 10/18/17 08/10/19 History Aspirin EC [Ecotrin Low Dose] 81 mg PO DAILY 09/01/18 08/10/19 History Cholecalciferol [Vitamin D3 (25 3,000 unit PO DAILY 09/01/18 08/10/19 History Mcg = 1000 Iu)] [place]-3 Fatty Acids/Fish Oil [Fish 1 cap PO BID 11/08/18 08/10/19 History Oil 1,000 mg Softgel] Diclofenac Sodium Gel [Voltaren 2 gm TOPICAL QID PRN 08/10/19 08/10/19 History Gel] Vitamin B Complex 1 tab PO DAILY 08/10/19 08/10/19 History Omeprazole [PriLOSEC] 40 mg PO BID #60 cap 08/11/19 Rx Allergies Allergy/AdvReac Type Severity Reaction Status Date / Time No Known Allergies Allergy Verified 06/29/22 12:32 Physical Exam Vitals: Vital Signs Temp Pulse Resp BP Pulse Ox 06/29/22 14:08 78 18 136/87 99 06/29/22 12:30 97.9 F 88 20 154/92 99 Intake and Output 06/29/22 06/29/22 06/29/22 06:59 14:59 22:59 Other: Weight 92.986 kg Results CBC & Chem 7: 06/29/22 12:48 06/29/22 12:48 Labs: Abnormal Lab Results - Last 24 Hours (Table) 06/29/22 Range/Units 12:48 APTT 21.9 L (22.0-30.0) sec
[2022-06-29] MEDS: PANTOPRAZOLE 40 MG TABLET PO SCH (17:27)
[2022-06-29] MEDS: NITROGLYCERIN OINT 1 INCH/GM PACKET TOPICAL SCH (19:14)
[2022-06-29] MEDS ORDERED: lisinopriL 10 MG TAB PO SCH (21:00)
[2022-06-30] MEDS: NITROGLYCERIN OINT 1 INCH/GM PACKET TOPICAL SCH ×3 (00:05→12:30)
[2022-06-30] MEDS: PANTOPRAZOLE 40 MG TABLET PO SCH (06:42)
[2022-06-30] MEDS ORDERED: ASPIRIN 81 MG PO SCH (09:00)
[2022-06-30] MEDS ORDERED: ATORVASTATIN 10 MG TAB PO SCH (09:00)
[2022-06-30] MEDS ORDERED: ENOXAPARIN 40 MG/0.4 ML SYRINGE SQ SCH (09:00)
[2022-06-30] MEDS ORDERED: ASPIRIN 325 MG TAB PO SCH (09:00)
--- NOTE | 2022-06-30 11:13 | P.CRDCN ---
History of Present Illness Consult date: 06/30/22 Consult reason: chest pain History of present illness: History of present illness: This is a 51-year-old male patient of Dr. KENYA Reaves with past medical history of hypertension and hyperlipidemia, family history of premature CAD with father requiring bypass at age 50. We have been asked to evaluate the patient regarding chest pain. Patient gives history that he developed left-sided pressure in his chest and radiated up to his left shoulder and then he had a shooting pain across to his right shoulder. It lasted for about 45 minutes to 1 hour and then resolved on its own. He denies having any shortness of breath. He denies worsening of the pain with deep breathing or movement. He's never had this type of pain before. He states he has had some burning under his left arm in the past and usually if he works out that improved. He does workout 3 times a week using a treadmill etc. He denies having any chest pain when he is exerci sing and has no shortness of breath. He states he has had some lightheadedness, no pedal edema. EKG sinus rhythm with no acute ST changes Chest x-ray: No acute process. CBC unremarkable. D-dimer 0.21, INR was 0.9. Electrolytes and renal function within normal limits. Troponin negative 3. Liver function tests within normal limits. Home cardiac medications: Lisinopril 10 mg twice daily, simvastatin 40 mg at bedtime Echocardiogram 2018 EF 55% and normal valves Exercise tolerance test in 2019 no ischemic changes Review Of Systems: At the time of my evaluation: Constitutional: No fever, no chills. No weakness, fatigue or lethargy. EENT: No headache. No dizziness. Lungs: No shortness of breath, cough, no sputum production. No wheezing. Cardiovascular: No chest pain, no lower extremity edema. No palpitations. No paroxysmal nocturnal dyspnea. No orthopnea. No lightheadedness or dizziness. No syncopal episodes. Abdominal: No abdominal pain. No nausea, vomiting. No diarrhea. No constipation. No bloody or tarry stools. Genitourinary: No dysuria.. No urinary retention. Musculoskeletal: No myalgias. No muscle weakness, no frequent falls. No back pain. No neck pain. Integumentary: No wounds. No rash. No unusual bruising. Neurologic: No aphasia. No facial droop. No change in mentation. No head injury. No headache. Physical examination: Gen: This is a 51-year-old male. He is resting and the recliner and appears to be comfortable. VS: reviewed HEENT: Head is atraumatic, normocephalic. Pupils equal, round. Sclerae is anicteric. NECK: Supple. No JVD. . LUNGS: Clear to auscultation. No wheezes or rhonchi. No intercostal retractions. HEART: Regular rate and rhythm. No murmur. ABDOMEN: Soft No tenderness. EXTREMITIES: No pedal edema. No calf tenderness. NEUROLOGICAL: Patient is awake, alert and oriented x3. Assessment: Chest pain, acute coronary syndrome ruled out Hypertension Hyperlipidemia Family history of premature CAD Plan: Resume patient's home cardiac medications Obtain stress echocardiogram today Obtain 2-D echocardiogram and Doppler study to assess cardiac structure and function If stress echocardiogram and echocardiogram are within normal limits, patient is cleared for discharge from cardiology and may follow-up in the office with Dr. KENYA Reaves in 2 weeks. Thank you kindly for this consultation. Nurse practitioner note has been reviewed, I agree with documented findings and plan of care. Patient was seen and examined. Past Medical History Past Medical History: Chest Pain / Angina, GERD/Reflux, Hyperlipidemia, Hypertension Additional Past Medical History / Comment(s): chest pain. costochondritis, covid march 2021 History of Any Multi-Drug Resistant Organisms: None Reported Past Surgical History: No Surgical Hx Reported Additional Past Surgical History / Comment(s): colonoscopy, wisdom teeth extraction. echo stress test x2. Past Anesthesia/Blood Transfusion Reactions: Postoperative Nausea & Vomiting (PONV) Past Psychological History: No Psychological Hx Reported Additional Psychological History / Comment(s): Pt resides with his spouse and 2 daughters. He is independent. He drives. He uses no assistive device. Smoking Status: Never smoker Past Alcohol Use History: Occasional Past Drug Use History: None Reported - Past Family History Father Family Medical History: AFIB, Coronary Artery Disease (CAD) Additional Family Medical History / Comment(s): Father 2014.He was 65 yrs old. cabbag 1999. Mother Family Medical History: No Reported History, Diabetes Mellitus Additional Family Medical History / Comment(s): Mother is healthy and 65 yrs old. Medications and Allergies Home Medications Medication Instructions Recorded Confirmed Type lisinopriL [Prinivil] 10 mg PO PC-BID 10/18/17 06/29/22 History [place]-3 Fatty Acids/Fish Oil [Fish 1 cap PO DAILY 11/08/18 06/29/22 History Oil 1,000 mg Softgel] Cholecalciferol [Vitamin D3 (25 25 mcg PO DAILY 06/29/22 06/29/22 History Mcg = 1000 Iu)] Cyanocobalamin (Vitamin B-12) 1,000 mcg PO DAILY 06/29/22 06/29/22 History [Vitamin B-12] Dicyclomine [Bentyl] 10 mg PO DAILY 06/29/22 06/29/22 History Magnesium Oxide [Whitlock] 500 mg PO DAILY 06/29/22 06/29/22 History Omeprazole 40 mg PO DAILY 06/29/22 06/29/22 History Simvastatin [Zocor] 40 mg PO HS 06/29/22 06/29/22 History Allergies Allergy/AdvReac Type Severity Reaction Status Date / Time No Known Allergies Allergy Verified 06/29/22 15:49 Physical Exam Vitals: Vital Signs Temp Pulse Pulse Resp BP BP Pulse Ox 06/30/22 06:35 97.6 F 62 16 112/74 97 06/30/22 05:25 97.6 F 59 L 16 129/85 99 06/29/22 23:20 67 18 138/89 98 06/29/22 22:46 98.1 F 70 17 156/106 99 06/29/22 22:27 97.7 F 70 18 121/98 98 06/29/22 21:42 66 18 131/83 97 06/29/22 20:25 75 18 131/83 99 06/29/22 18:13 76 18 124/85 98 06/29/22 16:48 97.9 F 68 17 124/85 100 06/29/22 14:08 78 18 136/87 99 06/29/22 12:30 97.9 F 88 20 154/92 99 Intake and Output 06/29/22 06/30/22 06/30/22 22:59 06:59 14:59 Other: # Voids 1 Weight 92.986 kg Results 06/29/22 12:48 06/29/22 12:48 Cardiac Enzymes 06/29/22 06/29/22 06/29/22 Range/Units 12:48 12:48 15:24 AST 20 (17-59) U/L Troponin I <0.012 <0.012 (0.000-0.034) ng/mL 06/29/22 Range/Units 18:40 AST (17-59) U/L Troponin I <0.012 (0.000-0.034) ng/mL Coagulation 06/29/22 Range/Units 12:48 PT 10.0 (9.0-12.0) sec APTT 21.9 L (22.0-30.0) sec CBC 06/29/22 Range/Units 12:48 WBC 5.1 (3.8-10.6) k/uL RBC 4.77 (4.30-5.90) m/uL Hgb 13.9 (13.0-17.5) gm/dL Hct 40.6 (39.0-53.0) % Plt Count 254 (150-450) k/uL Comprehensive Metabolic Panel 06/29/22 Range/Units 12:48 Sodium 137 (137-145) mmol/L Potassium 4.4 (3.5-5.1) mmol/L Chloride 103 (98-107) mmol/L Carbon Dioxide 25 (22-30) mmol/L BUN 13 (9-20) mg/dL Creatinine 0.86 (0.66-1.25) mg/dL Glucose 96 (74-99) mg/dL Calcium 9.4 (8.4-10.2) mg/dL AST 20 (17-59) U/L ALT 27 (4-49) U/L Alkaline Phosphatase 77 (38-126) U/L Total Protein 7.6 (6.3-8.2) g/dL Albumin 4.5 (3.5-5.0) g/dL Current Medications Generic Name Dose Route Start Last Admin Trade Name Freq PRN Reason Stop Dose Admin Acetaminophen 650 mg 06/29/22 14:47 Acetaminophen Tab 325 Mg Tab PO Q6HR PRN Mild Pain or Fever > 100.5 Aspirin 81 mg 06/30/22 09:00 Aspirin 81 Mg PO DAILY [facility] Atorvastatin Calcium 10 mg 06/30/22 09:00 Atorvastatin 10 Mg Tab PO DAILY [facility] Enoxaparin Sodium 40 mg 06/30/22 09:00 Enoxaparin 40 Mg/0.4 Ml Syringe SQ DAILY [facility] Lisinopril 10 mg 06/29/22 21:00 06/29/22 20:25 Lisinopril 10 Mg Tab PO 10 mg HS FILOMENA Administration Naloxone HCl 0.2 mg 06/29/22 14:47 Naloxone 0.4 Mg/Ml 1 Ml Vial IV Q2M PRN Opioid Reversal Nitroglycerin 1 inch 06/29/22 18:00 06/30/22 05:31 Nitroglycerin Oint 1 Inch/Gm Packet TOPICAL Not Given Q6HR [facility] Nitroglycerin 0.4 mg 06/29/22 14:28 Nitroglycerin Sl Tabs 0.4 Mg Tab SUBLINGUAL Q5M PRN Chest Pain Pantoprazole Sodium 40 mg 06/29/22 17:30 06/30/22 06:42 Pantoprazole 40 Mg Tablet PO 40 mg AC-BID FILOMENA Administration Intake and Output 06/29/22 06/30/22 06/30/22 22:59 06:59 14:59 Other: # Voids 1 Weight 92.986 kg 06/29/22 12:48 06/29/22 12:48
[2022-06-30 11:52] LABS: Chol/HDL Ratio 4.26 Ratio; LDL Cholesterol,Calculated 85.7 mg/dL (0.0-131.0)
--- NOTE | 2022-06-30 13:50 | CA ---
Stress Echo Report Gumaro Landry Age: 51 Gender: M : 1970 Exam Date: 06/30/2022 09:11 Exam Location: [facility] Ht (in): 69 Wt (lb): 205 Ordering Physician: Maria Isabel Blake Referring Physician: [id number] Community Service Specialist: Magdaleno Lovett Technologist Procedure CPT: Indication: CP ICD-9 Codes: Rhythm: Patient History: Cardiac Medications: SEE CHART Medications in past 24 hours: Contrast: N/A Stress Results Protocol: Jadon Total dose(mL): Exercise Duration (min:sec): 6:[address] Depression (mm): Angina Score: Hightower Score: METS: 8.1 Resting HR: 69 Resting BP: 153 / 81 Peak HR: 160 Peak BP: 179 / 82 Max Predicted HR: 169 95 % Max Predicted HR Target HR: 144 Double Product: [id number] Stress Summary: The patient's target heart rate was achieved BP Response: Reason for Termination: Reached target heart rate or work-load Cardiac Symptoms: NO SYMPTOMS ECG Analysis Resting ECG: Normal sinus rhythm, normal ECG Stress ECG: No abnormal ST/T wave changes with exercise Arrhythmia: None Echo Analysis Resting Echo: Normal resting echocardiogram. Peak Echo Analysis: No wall motion changes with stress. MEASUREMENTS (Male/Female) Normal Values CONCLUSIONS No ECG evidence of ischemia with exercise. Normal treadmill stress echocardiogram. Dr. Balaji Samaniego MD (Electronically Signed) Final Date: 30 June 2022 13:49
--- NOTE | 2022-06-30 13:52 | CA ---
Transthoracic Echo Report Name: Gumaro Landry Age: 51 Gender: M : 1970 Exam Date: 06/30/2022 08:07 Exam Location: [facility] Ht (in): 69 Wt (lb): 295 Ordering Physician: Mark Alcantara MD Attending/Referring Phys: Dialysis Tech Cyril Morales RDCS Procedure CPT: Indications: Chest Pain Cardiac Hx: Technical Quality: Fair Contrast 1: Total Dose (mL): Contrast 2: Total Dose (mL): MEASUREMENTS (Male / Female) Normal Values 2D ECHO LV Diastolic Diameter PLAX 4.7 cm 4.2 - 5.9 / 3.9 - 5.3 cm LV Systolic Diameter PLAX 2.7 cm IVS Diastolic Thickness 0.8 cm 0.6 - 1.0 / 0.6 - 0.9 cm LVPW Diastolic Thickness 0.9 cm 0.6 - 1.0 / 0.6 - 0.9 cm LV Relative Wall Thickness 0.4 RV Internal Dim ED PLAX 3.4 cm LVOT Diameter 2.0 cm LA Systolic Diameter LX 3.5 cm 3.0 - 4.0 / 2.7 - 3.8 cm LV Diastolic Volume MOD BP 72.0 cm??? 67 - 155 / 56 - 104 cm??? LV Systolic Volume MOD BP 31.2 cm??? 22 - 58 / 19 - 49 cm??? LV Ejection Fraction MOD BP 56.7 % >= 55 % LV Diastolic Volume MOD 4C 76.5 cm??? LV Systolic Volume MOD 4C 28.5 cm??? LV Ejection Fraction MOD 4C 62.7 % LV Diastolic Length 4C 7.5 cm LV Systolic Length 4C 5.8 cm LV Diastolic Volume MOD 2C 65.9 cm??? LV Systolic Volume MOD 2C 31.4 cm??? LV Ejection Fraction MOD 2C 52.4 % LV Diastolic Length 2C 7.2 cm LV Systolic Length 2C 6.4 cm Ascending Aorta Diameter 2.7 cm M-MODE Aortic Root Diameter MM 2.8 cm LA Systolic Diameter MM 3.7 cm LA Ao Ratio MM 1.4 MV E Point Septal Separation 0.9 cm AV Cusp Separation MM 1.6 cm DOPPLER AV Peak Velocity 112.0 cm/s AV Peak Gradient 5.0 mmHg LVOT Peak Velocity 86.0 cm/s LVOT Peak Gradient 3.0 mmHg AV Area Cont Eq pk 2.5 cm??? Mitral E Point Velocity 60.5 cm/s Mitral A Point Velocity 52.5 cm/s Mitral E to A Ratio 1.2 MV Deceleration Time 287.1 ms MV E' Velocity 8.3 cm/s Mitral E to MV E' Ratio 7.3 TR Peak Velocity 83.5 cm/s TR Peak Gradient 2.8 mmHg Right Ventricular Systolic Press 7.8 mmHg FINDINGS Left Ventricle Left ventricular ejection fraction is estimated at 55-60 %. Septal hypertrophy ( a bulged IVS on basal level);Normal Left ventricular size, wall thickness, systolic function with no obvious regional wall motion abnormalities. Normal Left ventricular diastolic filling pattern. Normal left ventricular systolic function with no obvious regional wall motion abnormalities. Right Ventricle Normal right ventricular size and function. Right Atrium Normal right atrial size. Left Atrium Normal left atrial size. Mitral Valve Structurally normal mitral valve. Trace mitral regurgitation. Aortic Valve Trileaflet aortic valve. Tricuspid Valve Structurally normal tricuspid valve. Trace to mild tricuspid regurgitation. Pulmonic Valve Structurally normal pulmonic valve. Pulmonic valve not well visualized. No pulmonic stenosis. Pericardium Normal pericardium. No pericardial effusion. Aorta Normal size aortic root and proximal ascending aorta. CONCLUSIONS 1. Normal left ventricular size and systolic function 2. Trace mitral and tricuspid regurgitation Previewed by: Dr. Balaji Samaniego MD (Electronically Signed) Final Date: 30 June 2022 13:51
[2022-06-30 14:09] VITALS: BP 122/82; PULSE 75; RESP 18; TEMP 98.3
--- NOTE | 2022-06-30 15:16 | P.DS ---
Providers Date of admission: 06/29/22 14:31 Expected date of discharge: 06/30/22 Attending physician: Josey Alejandra DO Consults: 06/29/22 14:28 Consult Physician Urgent Consulting Provider: [facility] Consult Reason/Comments: Chest pain Do you want consulting provider notified?: Yes Primary care physician: Quan Land Sydnee [facility] Hospital Course: Discharge Diagnosis: Chest pain, acute coronary event ruled out. Hypertension Hyperlipidemia GERD Costochondritis Hospital Course: Patient is a very pleasant 51-year-old male with a past medical history of hypertension, hyperlipidemia, GERD, and costochondritis. He presented to the emergency department on 06/29/22 with a chief complaint of chest pain. He underwent full evaluation in the emergency department. Labs completed and reviewed. CBC, coags, and CMP were all unremarkable. D-dimer was negative at 0.21 and troponin was negative at less than 0.012. EKG completed showing normal sinus rhythm at 78 bpm with no noted T-wave or ST abnormalities showing no signs of acute ischemia upon personal review and interpretation. Chest x-ray completed negative for acute cardiopulmonary process. Patient admitted under the services of consultation to cardiology. Troponins trended overnight all negative at less than 0.0123 draws. Lipid profile completed showing elevated triglycerides of 226 and elevated VLDL of 45.20. Echocardiogram completed revealing a preserved EF of 55-60% with septal hypertrophy and trace mitral and tricuspid regurgitation. Patient was evaluated by cardiology recommending stress echocardiogram testing. Stress echo completed and upon review of report showing no ECG evidence of ischemia with exercise and normal treadmill stress echocardiogram. Cardiology with no further inpatient recommendations at this time recommending outpatient follow-up in their office in 2 weeks. 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 Discussed benefits of TATO hose with patient. Medically, patient is stable for discharge at this time and is free from any complaints including chest pain, palpitations, shortness of breath, dizziness, lightheadedness, or experiencing any numbness/tingling/weakness in his extremities. Patient to follow up outpatient with PCP and 1-2 days and cardiology in 1-2 weeks. No medication changes were made during this admission. Physical exam: Patient seen and examined at bedside. He reports being free from any chest pain or complaints at this time. Vital signs reviewed and stable. General: Nontoxic, no distress and appears stated age. Derm: Skin warm and dry, normal coloration for ethnicity. Head: Atraumatic, normocephalic and symmetric. Eyes: EOMs intact, no lid lag, and anicteric sclera Mouth: no lip lesions, mucus membranes moist Cardiovascular: regular rate and rhythm with normal S1S2, no murmur, positive posterior tibial pulses bilaterally, and cap refill < 2 seconds. Lungs: Respirations even, regular, and unlabored on room air. Lungs CTA bilaterally, no rhonchi, no rales, no wheezing, and no accessory muscle usage. Abdominal: soft, nontender to palpation, no guarding, no appreciable organomegaly Ext: ROM intact. No gross muscle atrophy, no edema, no contractures Neuro: Speech clear, face symmetrical and CN II-XII grossly intact with no noted focal neuro deficits Psych: Alert and oriented to person, place, time, and situation. Appropriate and pleasant affect. A total of 31 minutes of time were spent preparing this complex discharge summary. Pt was discharged on 06/30/22 at 3:10 PM. Patient was seen independently by Nurse Practitioner. This document was prepared using [employer] dictation software. Please allow for errors in white kid buffer while rare they do occur. Josh Rascon NP rendered care for this patient independently, reviewed the findings and plan as documented in the note above. I did not physically speak with or examine the patient on this date. Patient Condition at Discharge: Stable Plan - Discharge Summary Discharge Rx Participant: No New Discharge Prescriptions: Continue lisinopriL [Prinivil] 10 mg PO PC-BID [place]-3 Fatty Acids/Fish Oil [Fish Oil 1,000 mg Softgel] 1 cap PO DAILY Dicyclomine [Bentyl] 10 mg PO DAILY Simvastatin [Zocor] 40 mg PO HS Omeprazole 40 mg PO DAILY Cholecalciferol [Vitamin D3 (25 Mcg = 1000 Iu)] 25 mcg PO DAILY Magnesium Oxide [[place]] 500 mg PO DAILY Cyanocobalamin (Vitamin B-12) [Vitamin B-12] 1,000 mcg PO DAILY Discharge Medication List lisinopriL [Prinivil] 10 mg PO PC-BID 10/18/17 [History] [place]-3 Fatty Acids/Fish Oil [Fish Oil 1,000 mg Softgel] 1 cap PO DAILY 11/08/18 [History] Cholecalciferol [Vitamin D3 (25 Mcg = 1000 Iu)] 25 mcg PO DAILY 06/29/22 [History] Cyanocobalamin (Vitamin B-12) [Vitamin B-12] 1,000 mcg PO DAILY 06/29/22 [History] Dicyclomine [Bentyl] 10 mg PO DAILY 06/29/22 [History] Magnesium Oxide [Whitlock] 500 mg PO DAILY 06/29/22 [History] Omeprazole 40 mg PO DAILY 06/29/22 [History] Simvastatin [Zocor] 40 mg PO HS 06/29/22 [History] Follow up Appointment(s)/Referral(s): Francisco Reaves MD [STAFF PHYSICIAN] - 07/07/22 9:30 am Quan Randhawa MD [Primary Care Provider] - 1-2 days Patient Instructions/Handouts: Chest Pain (DC), Low Fat Diet (DC), Hyperlipidemia (DC) Activity/Diet/Wound Care/Special Instructions: Activity: As tolerated. Take breaks as needed. Diet: Heart healthy and carb consistent diet. Avoid salts, or foods with hidden salts such as canned or boxed foods and frozen dinners. Extra salt makes your heart work harder and traps the fluid in your body for longer. Special Instructions: Take all of your medications as directed and remember to keep all of your doctor's appointments and follow-up as needed. Remember....it's time to invest in those "old people" socks!!!!! Thank you for allowing us to participate in your care, it was truly a pleasure having you for our patient!!! Discharge Disposition: HOME SELF-CARE
== END 2022-06-30 16:44 | disposition home or self-care (01) ==
LOC: EC 12:23 → 6NMEDSUR 14:31
PROVIDERS: ADMIT Internal Medicine; ATTEND Internal Medicine
DX: R07.9 Chest pain, unspecified (principal); I10 Essential (primary) hypertension; E78.5 Hyperlipidemia, unspecified; K21.9 Gastro-esophageal reflux disease without esophagitis; M94.0 Chondrocostal junction syndrome [Tietze]; Z82.49 Family history of ischemic heart disease and other diseases of the circulatory system; Z79.82 Long term (current) use of aspirin; Z79.899 Other long term (current) drug therapy
CPT/HCPCS: 96372; 99285; 36415; 93306; 93351; 85379; 80061; 80053; 84484; 85025; 85610; 85730; 71046; G0378 ×2; J1650; 93005

== ENCOUNTER → 2022-11-19 | Outpatient (CLI) | payer BC ==
[2022-11-19 17:03] LABS: Basophils # (A) 0.03 X 10*3/uL (0.00-0.10); Basophils % (A) 0.6 %; Eosinophils # (A) 0.07 X 10*3/uL (0.04-0.35); Eosinophils % (A) 1.5 %; HCT 45.1 % (39.6-50.0); HGB 14.7 d/dL (13.0-17.0); Lymphocytes # (A) 1.29 X 10*3/uL (0.90-5.00); Lymphocytes % (A) 27.5 %; MCH 28.7 pg (27.0-32.0); MCHC 32.6 d/dL (32.0-37.0); MCV 88.1 FL (80.0-97.0); Mean Platelet Volume 10.2 FL (9.5-12.2); Monocytes # (A) 0.44 X 10*3/uL (0.20-1.00); Monocytes % (A) 9.4 %; NRBC Per 100 WBC 0 X 10*3/uL (0.00-0.01); Neutrophils # (A) 2.85 X 10*3/uL (1.80-7.70); Neutrophils % (A) 60.8 %; Platelet Count 271 X 10*3/uL (140-440); RBC 5.12 X 10*6/uL (4.40-5.60); RDW 13.2 % (11.5-14.5); WBC 4.69 X 10*3/uL (4.50-10.00)
[2022-11-19 20:12] LABS: ALT 25 U/L (10-49); AST 21 U/L (14-35); Albumin 4.9 d/dL (3.8-4.9); Albumin/Globulin Ratio 1.63 Ratio (1.60-3.17); Alkaline Phosphatase 72 U/L (41-126); Blood Urea Nitrogen 11.8 mg/dL (9.0-27.0); Calcium 10.4 mg/dL (8.7-10.3); Carbon Dioxide 25.5 mmol/L (21.6-31.8); Chloride 103 mmol/L (96-109); Glucose 100 mg/dL (70-110); Potassium 5.2 mmol/L (3.5-5.5); Sodium 139 mmol/L (135-145); Total Bilirubin 0.7 mg/dL (0.3-1.2); Total Protein 7.9 d/dL (6.2-8.2)
== END | disposition home or self-care (01) ==
LOC: LABWHC1 10:39
PROVIDERS: ATTEND Family Medicine
DX: R06.00 Dyspnea, unspecified (principal)
CPT/HCPCS: 36415; 80053; 85025

== ENCOUNTER → 2022-11-19 | Outpatient (CLI) | payer BC ==
--- NOTE | 2022-11-19 12:19 | CT ---
CT CHEST FOR PULMONARY EMBOLISM. EXAMINATION TYPE: CT angio chest DATE OF EXAM: 11/19/2022 INDICATION: chest pain and tightness CT DLP: 379.6 mGycm, Automated exposure control for dose reduction was used. CONTRAST: Patient injected with 75cc mL of Isovue 370. COMPARISON: 12/11/2020 TECHNIQUE: CT of the chest is performed on a spiral scan at 2 mm thick sections. Study is performed with intravenous contrast timed for evaluation for pulmonary embolism. This will limit additional po rtions of the evaluation. 3-D MIP images reconstructed by the technologist are reviewed on the compu ter in the coronal and sagittal planes. FINDINGS: No persistent filling defects are evident to suggest an acute pulmonary embolism. No mediastinal or hilar adenopathy enlarged by CT criteria is evident. The ascending aorta diameter at the level of the main pulmonary artery is 3.1 cm. The main pulmonary artery diameter at the bifur cation is 2.2 cm. Lung windows are clear. Limited CT section through the upper abdomen are unremarkable. IMPRESSIONS: 1. No acute pulmonary embolism. 2. No acute pulmonary process.
== END | disposition home or self-care (01) ==
LOC: RADCTMAIN 10:55
PROVIDERS: ATTEND Family Medicine
DX: R07.9 Chest pain, unspecified (principal); R06.00 Dyspnea, unspecified
CPT/HCPCS: 71275; Q9967

== ENCOUNTER 2022-12-31 20:46 | Emergency (ER) | payer BC ==
[2022-12-31] MEDS ORDERED: DIPH,PERTUS(ACELL)TETVAC-LF 0.5 ML VIAL IM ONE (21:28)
[2022-12-31 21:33] LABS: Glucose,Whole Blood 86 mg/dL (70-110)
[2022-12-31] MEDS ORDERED: MORPHINE SULFATE 4 MG/ML SYRINGE IV STA (21:50)
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
[2022-12-31] MEDS ORDERED: ACETAMINOPHEN TAB 325 MG TAB PO STA (21:57)
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
[2022-12-31 22:10] LABS: Basophils % (A) 1 %; Eosinophils # (A) 0.1 k/uL (0-0.7); Eosinophils % (A) 2 %; HCT 42.6 % (39.0-53.0); HGB 14.3 gm/dL (13.0-17.5); Lymphocytes # (A) 1.8 k/uL (1.0-4.8); Lymphocytes % (A) 28 %; MCH 29.4 pg (25.0-35.0); MCHC 33.7 g/dL (31.0-37.0); MCV 87.4 fL (80.0-100.0); Mean Platelet Volume 7.5; Monocytes # (A) 0.4 k/uL (0-1.0); Monocytes % (A) 6 %; Neutrophils % (A) 61 %; Platelet Count 236 k/uL (150-450); RBC 4.87 m/uL (4.30-5.90); RDW 13.2 % (11.5-15.5); WBC 6.5 k/uL (3.8-10.6)
[2022-12-31 22:26] LABS: ALT 31 U/L (4-49); AST 33 U/L (17-59); African American GFR (CKD) >90 (>60 ml/min/1.73 sqM); Albumin 4.9 g/dL (3.5-5.0); Alcohol 43 mg/dL; Alkaline Phosphatase 69 U/L (38-126); Anion Gap 11 mmol/L; Blood Urea Nitrogen 13 mg/dL (9-20); Carbon Dioxide 24 mmol/L (22-30); Chloride 104 mmol/L (98-107); Glucose 83 mg/dL (74-99); Non-African American GFR(CKD) 87 (>60 ml/min/1.73 sqM); Potassium 4.3 mmol/L (3.5-5.1); Sodium 139 mmol/L (137-145); Total Bilirubin 0.9 mg/dL (0.2-1.3); Total Protein 8.4 g/dL (6.3-8.2)
[2022-12-31 22:29] LABS: Prothrombin Time 10.4 sec (9.0-12.0)
[2022-12-31] MEDS ORDERED: TOPICAL SKIN ADHESIVE 1 EACH AMP TOPICAL ONE (23:03)
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
[2023-01-01 02:08] VITALS: BP 132/97; PULSE 74; RESP 16; TEMP 98.8
== END 2022-12-31 23:35 | disposition home or self-care (01) ==
LOC: EC 20:46
DX: S01.312A Laceration without foreign body of left ear, initial encounter (principal); S16.1XXA Strain of muscle, fascia and tendon at neck level, initial encounter; I10 Essential (primary) hypertension; K21.9 Gastro-esophageal reflux disease without esophagitis; E78.5 Hyperlipidemia, unspecified; Z79.899 Other long term (current) drug therapy; Z23 Encounter for immunization; Z86.16 Personal history of COVID-19; V89.2XXA Person injured in unspecified motor-vehicle accident, traffic, initial encounter; Y92.410 Unspecified street and highway as the place of occurrence of the external cause
CPT/HCPCS: 12011; 36415; 70450; 71045; 72125; 80053; 80320; 84484; 85025; 85610; 85730; 86850; 86900; 86901; 90471; 90715; 93005; 99284